=== PATIENT | female | born 1960 | race Caucasian/White ===

== ENCOUNTER 2018-05-03 16:04 | Inpatient (IN) | payer MEDICARE, OTHER ==
[2018-05-03] MEDS ORDERED: ALBUTEROL NEBULIZED 7.5 MG, IPRATROPIUM NEBULIZED 0.5 MG, SODIUM CHLORIDE 0.9% NEBULIZ ... INHALATION ONE ×3 (16:59)
[2018-05-03] MEDS ORDERED: ALBUTEROL NEBULIZED 2.5 MG/3 ML INHALATION STA (17:05)
[2018-05-03] MEDS ORDERED: IPRATROPIUM 0.5 MG/2.5 ML NEBU INHALATION STA (17:06)
[2018-05-03] MEDS ORDERED: LORazepam 2 MG/ML INJ IV STA (17:47)
[2018-05-03] MEDS ORDERED: IPRATROPIUM-ALBUTEROL 3 ML NEB INHALATION PRN (17:55)
--- NOTE | 2018-05-03 17:55 | ED ---
General Adult HPI - General Chief complaint: Shortness of Breath Stated complaint: LEE ANN Time Seen by Provider: 05/03/18 16:10 Source: patient, EMS, RN notes reviewed Mode of arrival: EMS Limitations: no limitations - History of Present Illness Initial comments: This is a 58-year-old female who was sent in from [facility]. Patient came in for difficulty breathing she has had a trach for her previous exacerbations of COPD. Patient was found to have a possible pneumonia so they wanted the patient transferred to our facility. Patient states she still having difficulty breathing and only received one treatment of possible. Patient states that helped a little but not enough. Patient states she's had no recent fever chills or cough. Patient had a chest x-ray to the facility and blood work. Chest x-ray showed a possible pneumonia. Patient's blood work did not show a white count. - Related Data Home Medications Medication Instructions Recorded Confirmed Albuterol Nebulized [Ventolin 2.5 mg INHALATION Q6H 05/03/18 05/03/18 Nebulized] Albuterol Sulfate [Proair Hfa] 2 puff INHALATION Q4H PRN 05/03/18 05/03/18 Diltiazem HCl [Cartia Xt] 120 mg PO DAILY 05/03/18 05/03/18 Fluticasone/Vilanterol [Breo 1 puff INHALATION RT-DAILY 05/03/18 05/03/18 Ellipta 200-25 Mcg INH] Pravastatin Sodium [Pravachol] 20 mg PO HS 05/03/18 05/03/18 Tiotropium [place] [Spiriva] 1 cap INHALATION DAILY 05/03/18 05/03/18 Allergies Allergy/AdvReac Type Severity Reaction Status Date / Time ibuprofen [From Motrin] Allergy Unknown Verified 05/03/18 18:55 Childhood morphine Allergy Rash/Hives Verified 05/03/18 18:55 Penicillins Allergy Swelling Verified 05/03/18 18:55 Review of Systems ROS Statement: Those systems with pertinent positive or pertinent negative responses have been documented in the HPI. ROS Other: All systems not noted in ROS Statement are negative. Past Medical History Past Medical History: COPD, Fibromyalgia Additional Past Medical History / Comment(s): tachycardia. trach. osteoprosis History of Any Multi-Drug Resistant Organisms: MRSA Date of last positivie culture/infection: 2011 Past Surgical History: Section, Cholecystectomy, Tonsillectomy Additional Past Surgical History / Comment(s): tumor removed on spine eye surgery Past Psychological History: Anxiety Smoking Status: Former smoker Past Alcohol Use History: None Reported Past Drug Use History: None Reported General Exam - General Exam Comments Initial Comments: GENERAL: Patient is well-developed and well-nourished. Patient is nontoxic and well- hydrated and is in moderate distress. ENT: Neck is soft and supple. No significant lymphadenopathy is noted. Oropharynx is clear. Moist mucous membranes. Patient has a trach in place. EYES: The sclera were anicteric and conjunctiva were pink and moist. Extraocular movements were intact and pupils were equal round and reactive to light. Eyelids were unremarkable. PULMONARY: Patient has diminished breath sounds throughout. CARDIOVASCULAR: There is a regular rate and rhythm without any murmurs gallops or rubs. ABDOMEN: Soft and nontender with normal bowel sounds. No palpable organomegaly was noted. There is no palpable pulsatile mass. SKIN: Skin is clear with no lesions or rashes and otherwise unremarkable. NEUROLOGIC: Patient is alert and oriented x3. Cranial nerves II through XII are grossly intact. Motor and sensory are also intact. Normal speech, volume and content. Symmetrical smile. MUSCULOSKELETAL: Normal extremities with adequate strength and full range of motion. LYMPHATICS: No significant lymphadenopathy is noted PSYCHIATRIC: Normal psychiatric evaluation. N Limitations: no limitations Course Vital Signs 05/03/18 05/03/18 05/03/18 16:11 16:52 17:16 Temperature 98.6 F Pulse Rate 112 H 113 H Respiratory 22 20 Rate Blood Pressure 141/94 O2 Sat by Pulse 96 Oximetry 05/03/18 05/03/18 05/03/18 17:34 17:39 18:02 Temperature Pulse Rate 115 H 120 H 128 H Respiratory 20 Rate Blood Pressure 143/99 O2 Sat by Pulse 99 Oximetry 05/03/18 05/03/18 18:08 19:02 Temperature Pulse Rate 124 H 126 H Respiratory 22 20 Rate Blood Pressure 141/93 124/81 O2 Sat by Pulse 98 96 Oximetry Medical Decision Making - Medical Decision Making I reviewed the patient's paperwork from [facility] as well as chest x-ray results. I had the patient suctioned out without much success. I also gave the patient 3 continuous breathing treatments in the emergency department. I was told the patient had been given Solu-Medrol to the facility. I spoke with Dr. Otto he agreed to admit the patient admitted the patient for COPD exacerbation. Disposition Clinical Impression: Acute exacerbation of chronic obstructive airways disease Disposition: ADMITTED IP TO THIS HOSP Time of Disposition: 17:54
[2018-05-03] MEDS: methylPREDNISolone SOD SUCCI 125 MG/2 ML VIAL IV SCH ×2 (18:59→23:49)
[2018-05-03] MEDS: LORazepam 0.5 MG TAB PO PRN (23:19)
--- NOTE | 2018-05-03 23:20 | XR ---
EXAM: XR Chest, 1 View CLINICAL HISTORY: Pneumonia. TECHNIQUE: Frontal view of the chest. COMPARISON: None. FINDINGS: Lungs: Hyperinflated lungs with flattening of the diaphragms suggesting COPD. Question subtle airspace opacities within the lower lungs, right greater than left which may be inflammatory or infectious. Pleural space: Unremarkable. No pneumothorax. Heart: Unremarkable. No cardiomegaly. Mediastinum: Unremarkable. Bones/joints: Unremarkable. Tubes, lines and devices: Tracheostomy cannula within the thoracic inlet. IMPRESSION: 1. Hyperinflated lungs with flattening of the diaphragms suggesting COPD. 2. Question subtle airspace opacities within the lower lungs, right greater than left which may be inflammatory or infectious.
[2018-05-03] MEDS: HEPARIN SODIUM,PORCINE 5,000 UNIT/ML 1 ML VIAL SQ SCH (23:48)
[2018-05-03] MEDS: PRAVASTATIN SODIUM 20 MG TAB PO SCH (23:48)
[2018-05-03] MEDS: PANTOPRAZOLE 40 MG/10 ML VIAL IVP SCH (23:48)
--- NOTE | 2018-05-03 23:48 | HP ---
HISTORY AND PHYSICAL CHIEF COMPLAINTS: Shortness of breath and cough and sputum. HISTORY OF PRESENT ILLNESS: This 58-year-old woman with a past medical history of multiple medical problems including COPD, fibromyalgia, tachycardia, osteoporosis, history of MRSA, history of cholecystectomy being followed by a doctor at [facility]. The patient apparently was admitted to [facility] recently for COPD acute exacerbation. Otherwise, medical complications. The patient had tracheostomy and PEG tube. PEG tube was recently removed, but however the patient presented to [facility] with increased shortness of breath, cough and sputum. Right lower lobe pneumonia was suspected and the patient was subsequently transferred to [facility] Emergency Room and the patient admitted for further evaluation and treatment. There is no history of any rigors. No history of headache, loss of consciousness, chest pain, palpitations at this time. Patient complains of severe anxiety. PAST MEDICAL HISTORY: History of COPD, fibromyalgia, tachycardia, osteoporosis, history of MRSA, Caesarean infection, cholecystectomy. MEDICATIONS: Prior to admission include: 1. Spiriva 1 puff daily. 2. Pravachol 20 mg daily. 3. Breo Ellipta 200/25 1 puff daily. 4. ProAir 2 puffs q.4h p.r.n. 5. Cardia XT 120 mg p.o. daily. 6. Ventolin 2.5 q.6h. ALLERGIES: IBUPROFEN, MORPHINE and PENICILLIN. FAMILY HISTORY: No history of heart disease or strokes in the family. SOCIAL HISTORY: Previous history of smoking. No history of current smoking, alcohol intake. REVIEW OF SYSTEMS: ENT: Tracheostomy. Cardio system: No angina or palpitations. RESPIRATORY: As mentioned earlier. GI mentioned earlier. no dysuria. Central nervous system: No numbness, weakness. ALLERGIES/IMMUNOLOGY: No asthma or hay fever. Musculoskeletal as mentioned earlier. Hematology/Oncology: No history of anemia. Endocrine: No history of diabetes or hypothyroidism. Constitutional: As mentioned earlier. Dermatology: Negative. Rheumatology: Negative. Psychiatry: As mentioned earlier. PHYSICAL EXAMINATION: Alert and oriented x3. Pulse is 104. Blood pressure 140/77, respiration 20, temperature 97.9, pulse ox 96% on 10 L. HEENT is conjunctivae normal. Neck is tracheostomy. Cardiovascular system: S1, S2 tachycardic. No S3. Respiration: Breathing efforts are markedly increased. Expiratory wheezing also present. Axillary muscles special acting. Bilateral scattered rhonchi and crackles. ABDOMEN: Soft, status post PEG tube removal. Nontender. No mass palpable. No guarding. No rigidity. Legs: No edema. No swelling. CENTRAL NERVOUS SYSTEM: Higher functions as mentioned earlier. Moves all 4 limbs. No focal motor or sensory deficits. Lymphatics: No lymph nodes palpable in the neck, axillae or groin. Skin: No ulcers, rashes or bleeding. Joints: No active arthropathy. LABS: Not available. ASSESSMENT: 1. Chronic obstructive pulmonary disease exacerbation with possible right lower lobe pneumonia possibly gram-negative, possibly aspiration with acute hypoxic respiratory failure. 2. Status post recent tracheostomy and PEG tube. 3. Status post PEG tube removal. 4. Chronic hypoxic respiratory failure secondary to chronic obstructive pulmonary disease, hypoxic hypercarbic respiratory failure. 5. History of nicotine dependence. 6. Fibromyalgia. 7. Sinus tachycardia. 8. Anxiety. 9. Osteoporosis. 10.History of MRSA. 11.History of cholecystectomy. RECOMMENDATIONS AND DISCUSSION: In this 58-year-old woman who presented with multiple complex medical issues, we will monitor the patient closely, continue the current medications, management and will initiate broad-spectrum IV antibiotics and I would also recommend bronchodilators, steroids and pulmonary consultation with Dr. Sherman. Otherwise, resume the home medications. DVT prophylaxis. Prognosis guarded because of multiple complex medical issues. Further recommendations to follow. See orders for details. Discussed with staff. PALMA / VEEN: [id number] /
[2018-05-03] MEDS: LEVOFLOXACIN 500MG-D5W PMX 500 MG in DEXTROSE/WATER 1 100ML.BAG IVPB SCH (23:49)
[2018-05-04] MEDS: FORMOTEROL FUMARATE 20 MCG/2 ML NEBU INHALATION SCH ×3 (00:09→19:35)
[2018-05-04] MEDS: IPRATROPIUM-ALBUTEROL 3 ML NEB INHALATION SCH ×5 (00:09→19:21)
[2018-05-04] MEDS: ACETAMINOPHEN TAB 500 MG TAB PO PRN ×2 (04:48→11:05)
[2018-05-04] MEDS: methylPREDNISolone SOD SUCCI 125 MG/2 ML VIAL IV SCH ×4 (04:52→23:00)
[2018-05-04 05:24] LABS: Appearance,Urine Clear (Clear); Bilirubin,Urine Negative (Negative); Blood,Urine Negative (Negative); Color,Urine Dark Yellow; Glucose,Urine (UA) 1+ (Negative); Leukocyte Esterase,Urine Negative (Negative); Nitrite,Urine Negative (Negative); Protein,Urine Negative (Negative); Specific Gravity,Urine 1.008 (1.001-1.035); Urobilinogen,Urine <2.0 mg/dL (<2.0)
[2018-05-04 07:32] LABS: Basophils % (A) 0 %; Eosinophils % (A) 1 %; HGB 12.7 gm/dL (11.4-16.0); Lymphocytes # (A) 0.4 k/uL (1.0-4.8); Lymphocytes % (A) 6 %; MCH 29.7 pg (25.0-35.0); MCHC 32.7 g/dL (31.0-37.0); MCV 90.8 fL (80.0-100.0); Mean Platelet Volume 5.9; Monocytes # (A) 0.1 k/uL (0-1.0); Monocytes % (A) 2 %; Neutrophils # (A) 5.8 k/uL (1.3-7.7); Neutrophils % (A) 92 %; Platelet Count 467 k/uL (150-450); RDW 14.8 % (11.5-15.5); WBC 6.3 k/uL (3.8-10.6)
[2018-05-04 07:55] LABS: Anion Gap 9 mmol/L; Blood Urea Nitrogen 8 mg/dL (7-17); Calcium 9.5 mg/dL (8.4-10.2); Carbon Dioxide 33 mmol/L (22-30); Chloride 98 mmol/L (98-107); Glucose 97 mg/dL (74-99); Magnesium 1.4 mg/dL (1.6-2.3); Potassium 3.9 mmol/L (3.5-5.1); Sodium 140 mmol/L (137-145)
[2018-05-04] MEDS: BUDESONIDE 1 MG/2 ML NEBU INHALATION SCH ×2 (08:08→19:20)
[2018-05-04] MEDS: HEPARIN SODIUM,PORCINE 5,000 UNIT/ML 1 ML VIAL SQ SCH ×2 (08:20→20:38)
[2018-05-04] MEDS: LORazepam 0.5 MG TAB PO PRN (08:21)
[2018-05-04] MEDS: DILTIAZEM CD 120 MG CAP.ER.24H PO SCH (08:21)
[2018-05-04 09:10] LABS: Ketones,Urine 3+ (Negative)
[2018-05-04 11:43] LABS: Glucose,Whole Blood 114 mg/dL (75-99)
[2018-05-04] MEDS: traMADol 50 MG TAB PO PRN ×2 (12:58→20:36)
[2018-05-04] MEDS: ALPRAZolam 0.25 MG TAB PO PRN (14:52)
[2018-05-04] MEDS ORDERED: Magnesium Replacement Protocol 1 EACH MISC MISCELLANE PRN (16:50)
[2018-05-04 17:04] LABS: Glucose,Whole Blood 151 mg/dL (75-99)
[2018-05-04] MEDS: HYDROcodone/APAP 5-325MG 1 EACH TAB PO PRN ×2 (17:26→22:59)
[2018-05-04] MEDS: PRAVASTATIN SODIUM 20 MG TAB PO SCH (20:37)
[2018-05-04] MEDS: PANTOPRAZOLE 40 MG/10 ML VIAL IVP SCH (20:38)
[2018-05-04] MEDS: LEVOFLOXACIN 500MG-D5W PMX 500 MG in DEXTROSE/WATER 1 100ML.BAG IVPB SCH (20:38)
--- NOTE | 2018-05-04 20:54 | PN ---
PROGRESS NOTE DATE OF SERVICE: 05/04/2018 This 58-year-old woman who was admitted with severe shortness of breath and cough also complaining of pain also. The patient apparently had a recent complicated hospital stay in [facility]. Patient being followed by primary care physician in the [facility] area. The chest x-ray which was done which was reviewed personally by me showed increased markings in the lower lobe, possibly indicating pneumonic processes. The patient was started on broad-spectrum IV antibiotics. No chest pain. No palpitations. PAST MEDICAL HISTORY: Reviewed. REVIEW OF SYSTEMS: CARDIOVASCULAR: No angina or palpitations. RESPIRATIONS: As mentioned earlier. GI as mentioned earlier. : No dysuria. Central nervous system: No numbness or weakness. CURRENT MEDICATIONS ARE: Reviewed and include: 1. Tylenol 500 q.6h p.r.n. 2. DuoNeb q.i.d. and p.r.n. 3. Xanax 0.5 t.i.d. 4. Pulmicort 1 mg b.i.d. 5. Cardizem CD 120 mg daily. 6. Perforomist 20 mg b.i.d. 7. Heparin 5000 subcu. 8. Levaquin 500 mg. 9. Solu-Medrol 60 IV q.6 hours. 10.Protonix. 12.Ultram. PHYSICAL EXAM: Patient is alert, oriented x3. Pulse is 108. Blood pressure 130/80. Respiration 18, temperature 98 degrees, pulse ox 97 percent on trach collar. HEENT: Conjunctivae normal. NECK: Tracheostomy. CARDIOVASCULAR : S1, S2. Tachycardia. Respirations: Breath sounds diminished in the bases. Scattered rhonchi and crackles. ABDOMEN: Soft, nontender. Legs: PEG tube in place. Minimal leaking apparently. Nervous system: Otherwise, nontender. No mass palpable. Legs: No edema. No swelling. NERVOUS SYSTEM: Higher functions as mentioned earlier. Moves all 4 limbs. Mild diffuse weakness. Lymphatics: No lymph nodes palpable in the neck, axillae or groin. Skin: No ulcer, no rash. No bleeding. LAB STUDIES: WBC 6.2, hemoglobin 12.7, magnesium 1.4. ASSESSMENT: 1. Chronic obstructive pulmonary disease exacerbation with possible right lower lobe pneumonia possibly gram-negative, possible aspiration with acute hypoxic respiratory failure. 2. History of recent tracheostomy and PEG tube. 3. Status post PEG tube removal. 4. History of chronic hypoxic respiratory failure secondary to chronic obstructive pulmonary disease, hypoxic hypercarbic respiratory failure. 5. History of nicotine dependence. 6. History of fibromyalgia. 7. History of sinus tachycardia. 8. History of anxiety. 9. Osteoporosis. 10.History of MRSA. 11.History of cholecystectomy. 12.Hypomagnesemia. RECOMMENDATIONS AND DISCUSSION: In this 58-year-old I would repeat magnesium and we will follow the protocol and further recommendations to follow. Continue antibiotics. Pulmonary consultation. MMODL / IJN: [id number] / MTDD
[2018-05-04 21:29] LABS: Glucose,Whole Blood 220 mg/dL (75-99)
--- NOTE | 2018-05-04 21:31 | CONS ---
CONSULTATION This is a pulmonary consultation. DATE OF SERVICE: May 04, 2018 This is a 58-year-old female that we see in consultation for shortness of breath. This is the patient was apparently transferred from [facility]. The patient apparently has been seeing a website programmer at [facility] by name is Dr. Adan Gibson. The patient apparently has had multiple episodes of respiratory failure and apparently in January of 2018, underwent a tracheostomy. The patient currently was seen in the emergency room on the after being transferred from [facility] because of increasing shortness of breath. The patient's chest x-ray showed changes of COPD without any naya infiltrates. The patient apparently was short of breath in the emergency room. She did receive a breathing treatment. Today, she is feeling a bit better. She is able to mouth words. She has HIV tracheostomy tube in place. She denies any fever or chills. She apparently is coughing up some phlegm. The patient is not able to give much of a history because of her speaking limitation. HOME MEDICATIONS: Include Ventolin, albuterol updrafts, ProAir inhaler, cardia XT, Breo, pravastatin and Spiriva. ALLERGIES: IBUPROFEN, MORPHINE, AND PENICILLIN. PAST MEDICAL HISTORY: Positive for COPD, which is quite severe and fibromyalgia. She apparently has had multiple episodes of respiratory failure requiring intubation and mechanical ventilation and in January 2018, apparently required a tracheostomy tube. She has also history of osteoporosis and a previous history of MRSA infection. SURGICAL HISTORY: Includes a , cholecystectomy, tonsillectomy, tracheostomy and tumor removal from the spine. SOCIAL HISTORY: Positive for previous tobacco use. She denies any alcohol or illicit drug use. FAMILY HISTORY: Neurology. OCCUPATIONAL HISTORY: Noncontributory. REVIEW OF SYSTEMS: Hard to obtain because of the patient's tracheostomy and she can only mouth words. She apparently previously was able to use a [place] valve, but apparently does not currently use one. Anyway, the patient's major complaints including primarily shortness of breath. The rest of the review of systems appears to be unremarkable. Current vital signs are reviewed. Temperature 98.1. Heart rate 100. Respiratory rate 18, blood pressure 139/88, mean 105 and saturations on trach collar 96%. Appears in no acute distress. Mildly tachypneic and dyspneic. No audible wheezing. HEENT examination is grossly unremarkable. NECK: Supple. Full range of motion. There is a midline tracheostomy. Cardiovascular examination reveals regular rhythm and rate. She is mildly tachycardic. It is regular. S1, S2 normal. Lungs reveal expiratory wheezes and rhonchi. Breath sounds are diminished. There is prolongation. ABDOMEN: Soft. Bowel sounds are heard. Extremities are intact. There is no cyanosis, clubbing, or edema. Skin without rash. X-RAY: Chest x-ray was done on the . It shows flat diaphragms and hyperinflated lung aviles. There may be some atelectasis at the lung bases, but I do not really see any naya infiltrates. LABORATORY DATA: Reviewed. White count 6.3, hemoglobin 12.7, hematocrit 39.0, platelet count 467,000. Sodium 140, potassium 3.9, chloride 98, CO2 33, anion gap is 9. BUN and creatinine were 8 and 0.35. Glucose 114, magnesium 1.4, calcium is normal. Urine is essentially negative. MEDICATIONS: Medications are reviewed. From the pulmonary standpoint, she is on Pulmicort and formoterol twice a day. She is also getting albuterol and Atrovent updrafts q.i.d. and p.r.n. The patient is also on Solu-Medrol 60 mg q.6 hours and is also on Levaquin IV. ASSESSMENT: 1. Chronic obstructive pulmonary disease exacerbation, possibly complicated by purulent tracheobronchitis, without naya pneumonia. 2. History of long-standing and severe chronic obstructive pulmonary disease with multiple episodes of respiratory failure. 3. Status post tracheostomy for respiratory failure in January 2018. 4. Previous history of heavy tobacco use. 5. History of chronic hypoxemic respiratory failure. 6. History of fibromyalgia. 7. History of osteoporosis. 8. History of previous methicillin-resistant Staphylococcus aureus infection. PLAN: The patient's medications are reviewed. The patient is on short-acting beta agonist, short-acting muscarinic antagonist, long-acting beta agonist, inhaled corticosteroids, systemic corticosteroids and antibiotics. Additional recommendations and suggestions are forthcoming. Eventually once the patient is improved, we should try to have her use a [place] valve so she could speak. Additional recommendations and suggestions are forthcoming. I think in the future, she will be coming up to this area for her pulmonary care. We will continue to follow closely. Prognosis is guarded. A copy of today's note will go to her primary care physician. MMODL / IJN: [id number] /
[2018-05-05 02:04] LABS: Hemoglobin A1C 5.2 % (4.0-6.0)
[2018-05-05] MEDS: ALPRAZolam 0.25 MG TAB PO PRN (05:15)
[2018-05-05 05:21] LABS: Glucose,Whole Blood 156 mg/dL (75-99)
[2018-05-05] MEDS: HYDROcodone/APAP 5-325MG 1 EACH TAB PO PRN (05:34)
[2018-05-05 06:02] LABS: Basophils # (A) 0.2 k/uL (0-0.2); Basophils % (A) 1 %; Eosinophils # (A) 0.3 k/uL (0-0.7); Eosinophils % (A) 1 %; HCT 42.7 % (34.0-46.0); HGB 13.3 gm/dL (11.4-16.0); Hypochromasia Slight; Lymphocytes # (A) 2.6 k/uL (1.0-4.8); Lymphocytes % (A) 7 %; MCH 29.3 pg (25.0-35.0); MCHC 31.1 g/dL (31.0-37.0); Mean Platelet Volume 5.9; Monocytes # (A) 0.9 k/uL (0-1.0); Monocytes % (A) 3 %; Neutrophils # (A) 30.5 k/uL (1.3-7.7); Neutrophils % (A) 88 %; Platelet Count 742 k/uL (150-450); RBC 4.54 m/uL (3.80-5.40); RDW 14.9 % (11.5-15.5); WBC 34.6 k/uL (3.8-10.6)
[2018-05-05 06:03] LABS: ABG Base Excess 4.9 mmol/L; ABG HCO3 34 mmol/L (21-25); ABG Oxygen Saturation 99.5 % (94-97); ABG PO2 288 mmHg (83-108); ABG TCO2 37 mmol/L (19-24)
[2018-05-05 06:12] LABS: Anion Gap 10 mmol/L; Blood Urea Nitrogen 17 mg/dL (7-17); Calcium 9.5 mg/dL (8.4-10.2); Carbon Dioxide 30 mmol/L (22-30); Chloride 100 mmol/L (98-107); Glucose 199 mg/dL (74-99); Magnesium 1.6 mg/dL (1.6-2.3); Potassium 4.4 mmol/L (3.5-5.1); Sodium 140 mmol/L (137-145)
[2018-05-05] MEDS: PROPOFOL 1,000 MG in EMPTY BAG 1 BAG IV SCH ×2 (06:23→18:21)
--- NOTE | 2018-05-05 06:40 | XR ---
EXAM: XR Chest, 1 View CLINICAL HISTORY: ITS.REASON XR Reason: SOB TECHNIQUE: Frontal view of the chest. COMPARISON: 05/03/18 chest x-ray IMPRESSION: Unchanged heart size. Improved aeration of the lower lungs bilaterally. Possible trace bilateral pleural effusions. Hyperinflated lungs. Tracheostomy tube is in place.
[2018-05-05 06:41] LABS: ABG PCO2 100 mmHg (35-45); ABG PH 7.14 (7.35-7.45)
[2018-05-05] MEDS ORDERED: NALOXONE 0.4 MG/ML 1 ML VIAL IV PRN (07:08)
[2018-05-05 07:59] LABS: Glucose,Whole Blood 161 mg/dL (75-99)
[2018-05-05] MEDS ORDERED: IPRATROPIUM-ALBUTEROL 3 ML NEB INHALATION SCH (08:00)
[2018-05-05 08:09] LABS: ABG Base Excess 10.3 mmol/L; ABG HCO3 35 mmol/L (21-25); ABG Oxygen Saturation 99.6 % (94-97); ABG PCO2 53 mmHg (35-45); ABG PH 7.43 (7.35-7.45); ABG PO2 183 mmHg (83-108); ABG TCO2 36 mmol/L (19-24)
[2018-05-05] MEDS: methylPREDNISolone SOD SUCCI 125 MG/2 ML VIAL IV SCH ×3 (08:10→18:21)
[2018-05-05] MEDS: INSULIN ASPART (NovoLOG) 100 UNIT/ML VIAL SQ SCH ×3 (08:10→18:11)
[2018-05-05] MEDS: IPRATROPIUM-ALBUTEROL 3 ML NEB INHALATION SCH ×5 (08:29→23:44)
[2018-05-05] MEDS: FORMOTEROL FUMARATE 20 MCG/2 ML NEBU INHALATION SCH ×2 (08:33→19:50)
[2018-05-05] MEDS: BUDESONIDE 1 MG/2 ML NEBU INHALATION SCH ×2 (08:33→19:50)
[2018-05-05] MEDS: HEPARIN SODIUM,PORCINE 5,000 UNIT/ML 1 ML VIAL SQ SCH ×2 (09:26→20:31)
[2018-05-05] MEDS: CHLORHEXIDINE GLUCONATE 15 ML CUP MUCOUS MEM SCH ×2 (09:26→20:31)
[2018-05-05 09:36] LABS: Appearance,Urine Cloudy (Clear); Bacteria,Urine Rare /hpf; Bilirubin,Urine Negative (Negative); Blood,Urine Negative (Negative); Color,Urine Dark Yellow; Glucose,Urine (UA) Negative (Negative); Hyaline Casts,Urine 22 /lpf (0-2); Ketones,Urine 1+ (Negative); Leukocyte Esterase,Urine Negative (Negative); Mucus,Urine Many /hpf; Nitrite,Urine Negative (Negative); Protein,Urine 2+ (Negative); RBC,Urine 1 /hpf (0-5); Specific Gravity,Urine 1.024 (1.001-1.035); Squamous Epithelial Cell,Urine 3 /hpf (0-4); Urobilinogen,Urine <2.0 mg/dL (<2.0)
[2018-05-05] MEDS: DILTIAZEM CD 120 MG CAP.ER.24H PO SCH (10:40)
[2018-05-05] MEDS: SODIUM CHLORIDE 0.9% 1,000 ML IV SCH (10:50)
[2018-05-05] MEDS ORDERED: Magnesium Replacement Protocol 1 EACH MISC MISCELLANE PRN (10:59)
[2018-05-05] MEDS: LORazepam 2 MG/ML INJ IV PRN ×2 (11:04→20:30)
[2018-05-05] MEDS: MAGNESIUM SULFATE-D5W PMX 1 GM in DEXTROSE/WATER 1 100ML.BAG IVPB SCH ×2 (11:34→12:53)
[2018-05-05 11:54] LABS: Glucose,Whole Blood 130 mg/dL (75-99)
--- NOTE | 2018-05-05 14:55 | P.PN ---
Subjective Progress Note Date: 05/05/18 Principal diagnosis: Acute on chronic hypercapnic respiratory failure secondary to acute exacerbation of COPD complicated by purulent tracheobronchitis This is a 50-year-old white female patient that we saw in consultation yesterday. Patient was admitted to the hospital on O2 2018 for complaints of shortness of breath. Patient does have a chronic tracheostomy in place for multiple episodes of respiratory failure, this was done in January 2018 at [facility]. Patient lives in [place], and she was taken to the [facility] by EMS on O2 2018. She denied any recent fever , chills or cough. Chest x-ray at the [facility] showed the possibility of pneumonia. Chest x-ray was completed at this facility on 2018 and showed hyperinflated lungs with flattening of diaphragms suggesting COPD questionable subtle airspace opacities within the lower lungs. White blood cell count was 6.3, hemoglobin is 12.7, electrolytes were unremarkable, with the exception of CO2 which was elevated 33 suggesting chronic hypercapnic respiratory failure, B1 was a creatinine 0.35, urinalysis was negative for infection, influenza screen was negative. Patient was on trach collar, however last night patient started experiencing worsening shortness of breath, currently her inner cannula came out of the tracheostomy, and patient was severely hypoxemic, with O2 sat of around 48%. She was brought to the intensive care unit, in view of severe respiratory distress, and abnormal blood gases laced on the ventilator support. Initial blood gas this morning showed pO2 of 288, pCO2 of 100, and pH of 7.14, this was done and FiO2 100%. Patient was placed on mom assist-control mode of ventilation with a rate of 30, tidal vital 325, FiO2 50% and PEEP of 5. This morning were seeing the patient in the intensive care unit, she remains on assist control mode of ventilation, she is calm and comfortable, she is awake, in no acute distress, lung sounds are quite diminished, no significant rhonchi or wheezes. His chest x-ray has been reviewed with Dr. Gil, and showed trace bilateral pleural effusions, hyperinflated lungs. Vital signs are stable, with the exception of mild tachycardia, with a rate between 108-120 BPM, blood pressure is 80-100 systolic , and the diastolic blood pressure between 60-80 BPM. Patient is slightly oliguric, with a urine output between 5-15 mL. IV fluids were increased to 0.9 normal saline at a rate of 75 ML per hour, Diprivan and is currently at 50 mics per kilo per minute. Today's blood work shows some white blood cell count increased to 34.6, electrolytes were within normal limits, B1 of 17 and creatinine was 0.46. Urinalysis was negative for infection. Patient is on IV steroids, empiric antiemetics in the form of Levaquin, and nebulized bronchodilators. Objective - Vital Signs Vital signs: Vital Signs Temp 98.6 F 05/05/18 12:00 Pulse 108 H 05/05/18 14:00 Resp 30 H 05/05/18 14:00 BP 90/64 05/05/18 14:00 Pulse Ox 98 05/05/18 14:00 Intake & Output 05/04/18 05/05/18 05/05/18 18:59 06:59 18:59 Intake Total 600 100.172 448.747 Output Total 75 Balance 600 100.172 373.747 Weight 51.256 kg 49 kg Intake: IV 425 Magnesium Sulfate-D5w Pmx 200 1 gm In Dextrose/Water 1 100ml.bag @ 100 mls/hr IVPB Q1H WIN[facility]RED Rx#: [id number] Sodium Chloride 0.9% 1, 225 000 ml @ 75 mls/hr IV . [id number] WINIFRED Rx#:[id number] Intake, IV Titration 100.172 23.747 Amount Levofloxacin 500Mg-D5w 100 Pmx 500 mg In Dextrose/ Water 1 100ml.bag @ 100 mls/hr IVPB DAILY@2100 WINIFRED Rx#:[id number] Propofol 1,000 mg In 0.172 23.747 Empty Bag 1 bag @ Titrate IV .Q0M WINIFRED Rx#: [id number] Oral 600 Output: Urine 75 Other: Voiding Method Bedpan Bedpan Indwelling Catheter # Voids 1 1 # Bowel Movements 0 1 - Exam GENERAL EXAM: Alert, pleasant, 50-year-old white female, to the vent, currently on assist-control mode of ventilation comfortable in no apparent distress. HEAD: Normocephalic/atraumatic. EYES: Normal reaction of pupils, equal size. Conjunctiva pink, sclera white. NOSE: Clear with pink turbinates. THROAT: No erythema or exudates. NECK: No masses, no JVD, no thyroid enlargement, no adenopathy. CHEST: No chest wall deformity. Symmetrical expansion. LUNGS: Equal air entry with diminished breath sounds bilaterally CVS: Regular rate and rhythm, normal S1 and S2, no gallops, no murmurs, no rubs ABDOMEN: Soft, nontender. No hepatosplenomegaly, normal bowel sounds, no guarding or rigidity. EXTREMITIES: No clubbing, no edema, no cyanosis, 2+ pulses and upper and lower extremities. MUSCULOSKELETAL: Muscle strength and tone normal. SPINE: No scoliosis or deformity SKIN: No rashes CENTRAL NERVOUS SYSTEM: Alert and oriented -3. No focal deficits, tone is normal in all 4 extremities. PSYCHIATRIC: Alert and oriented -3. Appropriate affect. Intact judgment and insight. - Labs CBC & Chem 7: 05/05/18 05:47 05/05/18 05:47 Labs: Abnormal Lab Results - Last 24 Hours (Table) 05/04/18 05/04/18 05/05/18 Range/Units 17:01 21:29 05:20 WBC (3.8-10.6) k/uL Plt Count (150-450) k/uL Neutrophils # (1.3-7.7) k/uL ABG pH (7.35-7.45) ABG pCO2 (35-45) mmHg ABG pO2 (83-108) mmHg ABG HCO3 (21-25) mmol/L ABG Total CO2 (19-24) mmol/L ABG O2 Saturation (94-97) % Creatinine (0.52-1.04) mg/dL Glucose (74-99) mg/dL POC Glucose (mg/dL) 151 H 220 H 156 H (75-99) mg/dL Phosphorus (2.5-4.5) mg/dL Urine Appearance (Clear) Urine Protein (Negative) Urine Ketones (Negative) Urine Bacteria (None) /hpf Hyaline Casts (0-2) /lpf Urine Mucus (None) /hpf 05/05/18 05/05/18 05/05/18 Range/Units 05:47 05:47 05:55 WBC 34.6 H (3.8-10.6) k/uL Plt Count 742 H (150-450) k/uL Neutrophils # 30.5 H (1.3-7.7) k/uL ABG pH 7.14 L* (7.35-7.45) ABG pCO2 100 H* (35-45) mmHg ABG pO2 288 H (83-108) mmHg ABG HCO3 34 H (21-25) mmol/L ABG Total CO2 37 H (19-24) mmol/L ABG O2 Saturation 99.5 H (94-97) % Creatinine 0.46 L (0.52-1.04) mg/dL Glucose 199 H (74-99) mg/dL POC Glucose (mg/dL) (75-99) mg/dL Phosphorus (2.5-4.5) mg/dL Urine Appearance (Clear) Urine Protein (Negative) Urine Ketones (Negative) Urine Bacteria (None) /hpf Hyaline Casts (0-2) /lpf Urine Mucus (None) /hpf 05/05/18 05/05/18 05/05/18 Range/Units 06:50 07:57 08:07 WBC (3.8-10.6) k/uL Plt Count (150-450) k/uL Neutrophils # (1.3-7.7) k/uL ABG pH (7.35-7.45) ABG pCO2 53 H (35-45) mmHg ABG pO2 183 H (83-108) mmHg ABG HCO3 35 H (21-25) mmol/L ABG Total CO2 36 H (19-24) mmol/L ABG O2 Saturation 99.6 H (94-97) % Creatinine (0.52-1.04) mg/dL Glucose (74-99) mg/dL POC Glucose (mg/dL) 161 H (75-99) mg/dL Phosphorus 4.6 H (2.5-4.5) mg/dL Urine Appearance (Clear) Urine Protein (Negative) Urine Ketones (Negative) Urine Bacteria (None) /hpf Hyaline Casts (0-2) /lpf Urine Mucus (None) /hpf 05/05/18 05/05/18 Range/Units 09:00 11:50 WBC (3.8-10.6) k/uL Plt Count (150-450) k/uL Neutrophils # (1.3-7.7) k/uL ABG pH (7.35-7.45) ABG pCO2 (35-45) mmHg ABG pO2 (83-108) mmHg ABG HCO3 (21-25) mmol/L ABG Total CO2 (19-24) mmol/L ABG O2 Saturation (94-97) % Creatinine (0.52-1.04) mg/dL Glucose (74-99) mg/dL POC Glucose (mg/dL) 130 H (75-99) mg/dL Phosphorus (2.5-4.5) mg/dL Urine Appearance Cloudy H (Clear) Urine Protein 2+ H (Negative) Urine Ketones 1+ H (Negative) Urine Bacteria Rare H (None) /hpf Hyaline Casts 22 H (0-2) /lpf Urine Mucus Many H (None) /hpf Microbiology - Last 24 Hours (Table) 05/04/18 05:01 Urine Culture - Final Urine,Voided 05/05/18 07:18 Sputum Culture - Preliminary Sputum 05/04/18 00:14 Blood Culture - Preliminary Blood No Growth after 24 hours 05/04/18 05:15 Gram Stain - Preliminary Sputum Sputum Culture - Preliminary Assessment and Plan Plan: Assessment: #1. Acute on chronic hypercapnic respiratory failure late to acute exacerbation of chronic obstructive pulmonary disease, x-ray did not show any clear evidence of pneumonia. Patient required to be placed on mechanical ventilatory, which she remains today #2. Chronic hypercapnic and hypoxemic respiratory failure requiring placement of tracheostomy with a PEG tube, and PEG tube was removed #3. History of nicotine dependence, in remission #4. History of fibromyalgia #5. Anxiety #6. Osteoporosis Plan: We will continue with assist control mode of ventilation, light sedation, patient not have a PEG tube anymore, and her oral meds are on hold, will add Ativan on an as-needed basis for anxiety, will discontinue Xanax. Hemodynamically patient is stable. In no acute distress, with increased her IV fluids 2.9 normal saline at a rate of 75 ML per hour, her oliguria is slightly improving, renal profile is within normal limits, electrolytes are within normal limits, there has been no elevation in the patient's white blood cell count, patient is afebrile, influenza screen is negative. Urine and blood and sputum cultures are negative thus far. Continue with empiric antibiotics, nebulized bronchodilators, and IV steroids, may give the patient a sedation holiday, and obtaining a sitter weaning parameters later today. Based on that we may make a decision about leaving the patient on pressure support trials. I performed a history & physical examination of the patient and discussed their management with my nurse practitioner, Juliette Garcia. I reviewed the nurse practitioner's note and agree with the documented findings and plan of care. Lung sounds are positive for diminished breath sounds. The findings and the impression was discussed with the patient. I attest to the documentation by the nurse practitioner. Time with Patient: Less than 30
[2018-05-05] MEDS: HYDROmorphone 0.5 MG/0.5 ML SYRINGE IVP PRN ×2 (15:09→20:30)
[2018-05-05 18:08] LABS: Glucose,Whole Blood 123 mg/dL (75-99)
[2018-05-05] MEDS: PANTOPRAZOLE 40 MG/10 ML VIAL IVP SCH (20:31)
[2018-05-05] MEDS: PRAVASTATIN SODIUM 20 MG TAB PO SCH (20:32)
[2018-05-05] MEDS: LEVOFLOXACIN 500MG-D5W PMX 500 MG in DEXTROSE/WATER 1 100ML.BAG IVPB SCH (21:09)
--- NOTE | 2018-05-05 22:50 | PN ---
PROGRESS NOTE DATE OF SERVICE: 05/05/2018 This 58-year-old woman was admitted with COPD acute exacerbation, had a displaced yesterday. The patient with acute respiratory failure. Patient mechanically ventilated and sedated at this time. The patient on broad-spectrum IV antibiotics also. The blood pressure is maintained. Patient is currently on assist- control 40% FiO2, saturating well at this time. Patient being closely monitored in ICU. PAST MEDICAL HISTORY: Reviewed. REVIEW OF SYSTEMS: Could not be taken. The patient mechanically ventilated and sedated. CURRENT MEDICATIONS: 1. Tylenol 500 mg q.6h p.r.n. 2. [place] 5 mg q.6h. 3. DuoNeb q.i.d. and p.r.n. 4. Peridex 15 mL b.i.d. 5. Cardizem CD 120 mg p.o. daily. 6. Perforomist 20 mEq p.o. b.i.d. 7. Heparin 5000 subcu b.i.d. 8. Dilaudid 0.5 q.8h p.r.n. 9. Levaquin 500 mg daily. 10.Sodium 160 IV q.6h. 11.Narcan. 12.Protonix. 13.Prevacid. 14.Ultram. PHYSICAL EXAM: Patient is alert, oriented x3. The pulse is 112, blood pressure is 90/60 respiration 30. Temperature is normal. Pulse ox 98% on mechanical ventilation. HEENT: Conjunctivae normal. Oral mucosa moist. NECK: Tracheostomy. CARDIOVASCULAR SYSTEM: S1, S2 muffled. RESPIRATORY SYSTEM: Breath sounds diminished at the bases. Bilateral scattered rhonchi and crackles. ABDOMEN: Soft, nontender. No mass palpable. LEGS: No edema. No swelling. CENTRAL NERVOUS SYSTEM: Diffusely weak. LAB STUDIES: WBC 34.6 and platelets 742. ASSESSMENT: 1. Chronic obstructive pulmonary disease exacerbation with acute right lower lobe pneumonia possibly gram-negative, possibly aspiration with acute hypoxic respiratory failure on mechanical ventilation. 2. History of recent tracheostomy and PEG tube. 3. Status post PEG tube removal. 4. History of chronic obstructive pulmonary disease with chronic hypoxic hypercarbic respiratory failure. 5. History of nicotine dependence. 6. History of fibromyalgia. 7. History of sinus tachycardia. 8. History of anxiety. 9. History of osteoporosis. 10.History of MRSA. 11.History of cholecystectomy. 12.History of hypomagnesemia. RECOMMENDATIONS AND DISCUSSION: Recommend to continue current medication, continue to monitor. Symptomatic treatment. Otherwise, at this time, I would recommend continue with bronchodilators. Continue antibiotics. Continue with IV steroids. Monitor blood sugars closely. DVT prophylaxis. Proton pump inhibitors. Closely follow with Pulmonary. Prognosis guarded. We will await the cultures. Further recommendation to follow. MMODL / IJN: [id number] / MTDD
[2018-05-06] MEDS: INSULIN ASPART (NovoLOG) 100 UNIT/ML VIAL SQ SCH ×4 (00:11→18:10)
[2018-05-06] MEDS: SODIUM CHLORIDE 0.9% 1,000 ML IV SCH ×2 (00:12→13:55)
[2018-05-06] MEDS: methylPREDNISolone SOD SUCCI 125 MG/2 ML VIAL IV SCH ×4 (00:12→18:22)
[2018-05-06 00:21] LABS: Glucose,Whole Blood 131 mg/dL (75-99)
[2018-05-06] MEDS: PROPOFOL 1,000 MG in EMPTY BAG 1 BAG IV SCH (02:31)
[2018-05-06] MEDS: IPRATROPIUM-ALBUTEROL 3 ML NEB INHALATION SCH ×6 (03:03→23:25)
[2018-05-06 04:02] LABS: ABG Base Excess 7.6 mmol/L; ABG HCO3 30 mmol/L (21-25); ABG Oxygen Saturation 99.5 % (94-97); ABG PCO2 36 mmHg (35-45); ABG PH 7.53 (7.35-7.45); ABG PO2 151 mmHg (83-108); ABG TCO2 32 mmol/L (19-24)
[2018-05-06 05:33] LABS: Basophils % (A) 0 %; Eosinophils # (A) 0.2 k/uL (0-0.7); Eosinophils % (A) 1 %; HCT 32.1 % (34.0-46.0); HGB 10.6 gm/dL (11.4-16.0); Lymphocytes # (A) 0.2 k/uL (1.0-4.8); Lymphocytes % (A) 2 %; MCHC 32.9 g/dL (31.0-37.0); MCV 91.1 fL (80.0-100.0); Mean Platelet Volume 6.2; Monocytes # (A) 0.3 k/uL (0-1.0); Monocytes % (A) 2 %; Neutrophils # (A) 12.8 k/uL (1.3-7.7); Neutrophils % (A) 95 %; Platelet Count 376 k/uL (150-450); RBC 3.53 m/uL (3.80-5.40); WBC 13.5 k/uL (3.8-10.6)
[2018-05-06 05:47] LABS: Anion Gap 5 mmol/L; Blood Urea Nitrogen 20 mg/dL (7-17); Calcium 9.2 mg/dL (8.4-10.2); Carbon Dioxide 30 mmol/L (22-30); Chloride 104 mmol/L (98-107); Glucose 112 mg/dL (74-99); Phosphorus 2.1 mg/dL (2.5-4.5); Potassium 3.6 mmol/L (3.5-5.1); Sodium 139 mmol/L (137-145)
[2018-05-06 06:07] LABS: Glucose,Whole Blood 131 mg/dL (75-99)
[2018-05-06] MEDS ORDERED: Phosphorus Replacement Protoco 1 EACH MISC MISCELLANE PRN (06:27)
[2018-05-06] MEDS ORDERED: Potassium Replacement Protocol 1 EACH MISC MISCELLANE PRN (06:27)
[2018-05-06] MEDS: HYDROmorphone 0.5 MG/0.5 ML SYRINGE IVP PRN ×3 (06:40→20:51)
[2018-05-06] MEDS: POTASSIUM CHLORIDE 10 MEQ in WATER FOR INJECTION 1 100ML.BAG IVPB SCH ×2 (06:45→12:03)
[2018-05-06] MEDS ORDERED: POTASSIUM PHOSPHATE 10 MMOL in SODIUM CHLORIDE 0.9% 250 ML IV ONE (07:00)
[2018-05-06] MEDS: FORMOTEROL FUMARATE 20 MCG/2 ML NEBU INHALATION SCH ×2 (07:25→19:57)
[2018-05-06] MEDS: BUDESONIDE 1 MG/2 ML NEBU INHALATION SCH ×2 (07:25→18:46)
--- NOTE | 2018-05-06 08:34 | XR ---
EXAMINATION TYPE: XR chest 1V portable DATE OF EXAM: 05/06/2018 COMPARISON: 05/05/2018 HISTORY: Shortness of breath TECHNIQUE: Single frontal view of the chest is obtained. FINDINGS: Hyperinflation. Tracheostomy tube noted. Atherosclerotic change aorta. No sizable pneumoth orax. Blunting of the costophrenic angles may be related to hyperexpansion rather than pleural effusi on or thickening. Correlate for pulmonary arterial hypertension. Subsegmental changes at the left gonzalez g base. IMPRESSION: COPD with stable basilar atelectasis or resolving infiltrate.
--- NOTE | 2018-05-06 08:36 | CDI ---
Documentation Clarification Form Date: 05/06/2018 8:14:04 AM From: Concepcion Quevedo RN CCDS Admit Date: 05/03/2018 5:55:00 PM Patient Name: Latricia Taylor Visit Number: [id number] Discharge Date: ATTENTION: The Clinical Documentation Specialists (CDI) and [facility] Coding Staff appreciate your assistance in clarifying documentation. Please respond to the clarification below the line at the bottom and electronically sign. The CDI & [facility] Coding staff will review the response and follow-up if needed. Please note: Queries are made part of the Legal Health Record. If you have any questions, please contact the author of this message via ITS. Dr. Izzy Otto Possibly Gram Negative Pneumonia, Possibly Aspiration Pneumonia is documented in your note on 05/05/2018 History/Risk Factors: 58 yr old female presents to the ED with COPD exacerbation. Clinical Indicators: Medical Hx COPD with chronic hypoxic hypercarbic respiratory failure. Peg Tube and Tracheotomy. Vital signs: 140/77 104 97.9 96% WBC 6.3 on admission, 05/05/2018 Wbc 34.6 X-ray: 05/05/2018 Improved aeration of the lower lungs bilaterally. Possible trace Jimbo Pleural effusions. Hyperinflated lungs. Lung/Breathing assessment Respiration breathing efforts are markedly increased. Expiratory wheezing also present Treatment: Levaquin ivpb; Mechanical Ventilation; Solumedrol ; Magnesium, Perforomist; Pulmonary Consult In order to capture the severity of condition, please clarify if the Pneumonia you are treating for: Aspiration Pneumonia, identify if: * Due to solids or liquids Bacterial Pneumonia, specify causal organism (if known) * Gram Negative Pneumonia * Other bacteria (please specify) * Other, please specify * Unable to determine * Pneumonia Ruled Out (Last Revision: June 2017) Bacterial Pneumonia, * Gram Negative Pneumonia MTDD
[2018-05-06] MEDS: HEPARIN SODIUM,PORCINE 5,000 UNIT/ML 1 ML VIAL SQ SCH ×2 (08:41→20:52)
[2018-05-06] MEDS: CHLORHEXIDINE GLUCONATE 15 ML CUP MUCOUS MEM SCH ×2 (08:41→20:51)
[2018-05-06] MEDS: LORazepam 2 MG/ML INJ IV PRN ×2 (09:02→14:59)
[2018-05-06] MEDS: DILTIAZEM CD 120 MG CAP.ER.24H PO SCH (11:30)
[2018-05-06 11:51] LABS: Glucose,Whole Blood 104 mg/dL (75-99)
--- NOTE | 2018-05-06 15:52 | P.PN ---
Subjective Progress Note Date: 05/06/18 This is a 50-year-old white female patient that we saw in consultation yesterday. Patient was admitted to the hospital on O2 2018 for complaints of shortness of breath. Patient does have a chronic tracheostomy in place for multiple episodes of respiratory failure, this was done in January 2018 at [facility]. Patient lives in [place], and she was taken to the [facility] by EMS on O2 2018. She denied any recent fever , chills or cough. Chest x-ray at the [facility] showed the possibility of pneumonia. Chest x-ray was completed at this facility on 2018 and showed hyperinflated lungs with flattening of diaphragms suggesting COPD questionable subtle airspace opacities within the lower lungs. White blood cell count was 6.3, hemoglobin is 12.7, electrolytes were unremarkable, with the exception of CO2 which was elevated 33 suggesting chronic hypercapnic respiratory failure, B1 was a creatinine 0.35, urinalysis was negative for infection, influenza screen was negative. Patient was on trach collar, however last night patient started experiencing worsening shortness of breath, currently her inner cannula came out of the tracheostomy, and patient was severely hypoxemic, with O2 sat of around 48%. She was brought to the intensive care unit, in view of severe respiratory distress, and abnormal blood gases laced on the ventilator support. Initial blood gas this morning showed pO2 of 288, pCO2 of 100, and pH of 7.14, this was done and FiO2 100%. Patient was placed on mom assist-control mode of ventilation with a rate of 30, tidal vital 325, FiO2 50% and PEEP of 5. This morning were seeing the patient in the intensive care unit, she remains on assist control mode of ventilation, she is calm and comfortable, she is awake, in no acute distress, lung sounds are quite diminished, no significant rhonchi or wheezes. His chest x-ray has been reviewed with Dr. Gil, and showed trace bilateral pleural effusions, hyperinflated lungs. Vital signs are stable, with the exception of mild tachycardia, with a rate between 108-120 BPM, blood pressure is 80-100 systolic , and the diastolic blood pressure between 60-80 BPM. Patient is slightly oliguric, with a urine output between 5-15 mL. IV fluids were increased to 0.9 normal saline at a rate of 75 ML per hour, Diprivan and is currently at 50 mics per kilo per minute. Today's blood work shows some white blood cell count increased to 34.6, electrolytes were within normal limits, B1 of 17 and creatinine was 0.46. Urinalysis was negative for infection. Patient is on IV steroids, empiric antiemetics in the form of Levaquin, and nebulized bronchodilators. On today's evaluation of 05/06/2018, I'm seeing this patient for a follow-up. She is awake and she's off Diprivan this morning. She is receiving Ativan for anxiety pH remains on a mechanical ventilator. Her blood gases earlier this morning showed a component of respiratory alkalosis with a pH of 7.53 with a pCO2 of 36 and pO2 of 151. His was done by the patient's respiratory rate was at 30 with tidal volume of 3 on 25 and FiO2 of 40% and PEEP of 5. Based on this , I dropped a respiratory rate down to 20. She is doing well. She is awake and alert. She was given a short trial of pressure support mode of ventilation with a pressure support of 5 and PEEP of 5 and she was able to tolerate it for a total of 30 minutes. The tracheostomy tube catheter that she has does not have any parts available in our institution. I talked with respiratory and we are thinking of replacing it with a conventional Shiley tracheostomy tube with a later stage. The patient is still nothing by mouth. She does not have any tach 2. I've decided to proceed with a Dobbhoff tube insertion for enteral feeding and nutritional support. This will be also needed for medication. The patient is still having some sinus tachycardia. Her heart rate is ranging between 110 and 130 and is sinus. She is on IV fluids. She is receiving 0.9 normal saline at the rate of 75 mL an hour. She has an adequate urine output. She is afebrile. Her chest x-ray showing hyperinflation without evidence of any acute pneumonia or pulmonary infiltrates. She is quite anxious. She is able to communicate easily. The blood work is been all negative and within normal limits. Potassium is to be replaced. Phosphorus is to be replaced. Influenza screen was negative. Note that her COPD is advanced and the patient has had previous bouts of prolonged ventilator Failure requiring a long-term tracheostomy tube insertion. Objective - Vital Signs Vital signs: Vital Signs Temp 98.4 F 05/06/18 12:00 Pulse 108 H 05/06/18 15:00 Resp 21 05/06/18 15:00 BP 121/79 05/06/18 15:00 Pulse Ox 98 05/06/18 15:00 Intake & Output 05/05/18 05/06/18 05/06/18 18:59 06:59 18:59 Intake Total 354.153 2535.015 1052.169 Output Total 195 315 360 Balance 574.563 821.015 692.169 Weight 55.4 kg Intake: IV 725 900 925 Magnesium Sulfate-D5w Pmx 200 1 gm In Dextrose/Water 1 100ml.bag @ 100 mls/hr IVPB Q1H [facility] Rx#: [id number] Potassium Phosphate 10 250 mmol In Sodium Chloride 0 .9% 250 ml @ 125 mls/hr IV ONCE ONE Rx#:[id number] Sodium Chloride 0.9% 1, 525 900 675 000 ml @ 75 mls/hr IV . [id number] [facility] Rx#:[id number] Intake, IV Titration 44.563 236.015 127.169 Amount Levofloxacin 500Mg-D5w 100 Pmx 500 mg In Dextrose/ Water 1 100ml.bag @ 100 mls/hr IVPB DAILY@2100 [facility] Rx#:[id number] Potassium Chloride 10 meq 100 100 In Water For Injection 1 100ml.bag @ 100 mls/hr IVPB Q1H [facility] Rx#: [id number] Propofol 1,000 mg In 44.563 36.015 27.169 Empty Bag 1 bag @ Titrate IV .Q0M [facility] Rx#: [id number] Output: Urine 195 315 360 Other: Voiding Method Indwelling Catheter Indwelling Catheter Indwelling Catheter # Voids 1 # Bowel Movements 1 - Exam GENERAL EXAM: Alert, pleasant, 50-year-old white female, to the vent, currently on assist-control mode of ventilation comfortable in no apparent distress. HEAD: Normocephalic/atraumatic. EYES: Normal reaction of pupils, equal size. Conjunctiva pink, sclera white. NOSE: Clear with pink turbinates. THROAT: No erythema or exudates. NECK: No masses, no JVD, no thyroid enlargement, no adenopathy. CHEST: No chest wall deformity. Symmetrical expansion. LUNGS: Equal air entry with diminished breath sounds bilaterally CVS: Regular rate and rhythm, normal S1 and S2, no gallops, no murmurs, no rubs ABDOMEN: Soft, nontender. No hepatosplenomegaly, normal bowel sounds, no guarding or rigidity. EXTREMITIES: No clubbing, no edema, no cyanosis, 2+ pulses and upper and lower extremities. MUSCULOSKELETAL: Muscle strength and tone normal. SPINE: No scoliosis or deformity SKIN: No rashes CENTRAL NERVOUS SYSTEM: Alert and oriented -3. No focal deficits, tone is normal in all 4 extremities. PSYCHIATRIC: Alert and oriented -3. Appropriate affect. Intact judgment and insight. - Labs CBC & Chem 7: 05/06/18 05:16 05/06/18 05:16 Labs: Abnormal Lab Results - Last 24 Hours (Table) 05/05/18 05/05/18 05/06/18 Range/Units 18:05 23:55 03:57 WBC (3.8-10.6) k/uL RBC (3.80-5.40) m/uL Hgb (11.4-16.0) gm/dL Hct (34.0-46.0) % Neutrophils # (1.3-7.7) k/uL Lymphocytes # (1.0-4.8) k/uL ABG pH 7.53 H (7.35-7.45) ABG pO2 151 H (83-108) mmHg ABG HCO3 30 H (21-25) mmol/L ABG Total CO2 32 H (19-24) mmol/L ABG O2 Saturation 99.5 H (94-97) % BUN (7-17) mg/dL Creatinine (0.52-1.04) mg/dL Glucose (74-99) mg/dL POC Glucose (mg/dL) 123 H 131 H (75-99) mg/dL Phosphorus (2.5-4.5) mg/dL 05/06/18 05/06/18 05/06/18 Range/Units 05:16 05:16 05:52 WBC 13.5 H (3.8-10.6) k/uL RBC 3.53 L (3.80-5.40) m/uL Hgb 10.6 L (11.4-16.0) gm/dL Hct 32.1 L (34.0-46.0) % Neutrophils # 12.8 H (1.3-7.7) k/uL Lymphocytes # 0.2 L (1.0-4.8) k/uL ABG pH (7.35-7.45) ABG pO2 (83-108) mmHg ABG HCO3 (21-25) mmol/L ABG Total CO2 (19-24) mmol/L ABG O2 Saturation (94-97) % BUN 20 H (7-17) mg/dL Creatinine 0.45 L (0.52-1.04) mg/dL Glucose 112 H (74-99) mg/dL POC Glucose (mg/dL) 131 H (75-99) mg/dL Phosphorus 2.1 L (2.5-4.5) mg/dL 05/06/18 Range/Units 11:46 WBC (3.8-10.6) k/uL RBC (3.80-5.40) m/uL Hgb (11.4-16.0) gm/dL Hct (34.0-46.0) % Neutrophils # (1.3-7.7) k/uL Lymphocytes # (1.0-4.8) k/uL ABG pH (7.35-7.45) ABG pO2 (83-108) mmHg ABG HCO3 (21-25) mmol/L ABG Total CO2 (19-24) mmol/L ABG O2 Saturation (94-97) % BUN (7-17) mg/dL Creatinine (0.52-1.04) mg/dL Glucose (74-99) mg/dL POC Glucose (mg/dL) 104 H (75-99) mg/dL Phosphorus (2.5-4.5) mg/dL Microbiology - Last 24 Hours (Table) 05/04/18 05:15 Gram Stain - Final Sputum Sputum Culture - Final 05/04/18 00:14 Blood Culture - Preliminary Blood No Growth after 48 hours 05/05/18 07:18 Gram Stain - Preliminary Sputum Sputum Culture - Preliminary 05/04/18 05:01 Urine Culture - Final Urine,Voided Assessment and Plan Plan: Assessment 1 acute on chronic hypercapnic respiratory failure secondary to COPD exacerbation. The patient's COPD is very severe and her overall pulmonary status has been very borderline starting with. She has had previous bouts of prolonged ventilator dependent respiratory failure requiring prolonged mechanical ventilation intubation and permanent tracheostomy placement. Currently, airway pressures remains elevated. The morning blood gases showed a component of respiratory alkalosis. Necessity vent changes were done. Chest x- ray still showing hyperinflation. There is no evidence of any pneumonia. She remains bronchospastic and wheezy. Unable to tolerate any form of spontaneous breathing trials yet. She remains nothing by mouth. 2 chronic hypercapnic and hypoxic respiratory failure due to advanced COPD 3 history of permanent tracheostomy tube placement 4 fibromyalgia 5 chronic anxiety 6 chronic osteoporosis 7 previous history of smoking 8 electrode imbalance with hypokalemia and hypophosphatemia 9 sinus tachycardia Plan Continue the bronchodilators. Continue systemic steroids. Continue Levaquin as an empiric antibiotic coverage. We'll check daily weaning parameters and assess the patient's readiness to wean. Also, will need a Dobbhoff for feeding purposes and will also need to restart on Cardizem orally to control her sinus tachycardia. I would suggest starting the Cardizem as well as the Dobbhoff catheterization. Meanwhile, continue the rest of the supportive care. Avoid propofol. He was given as needed for anxiety. This may ultimately be a prolonged wean. We'll continue to follow make further recommendations based on her progress. I intend also to switch her tracheostomy at a later stage conventional Shiley tracheostomy tube. Critically care evaluation, done more than 30 minutes. Time with Patient: Greater than 30
--- NOTE | 2018-05-06 18:21 | PN ---
PROGRESS NOTE DATE OF SERVICE: 05/06/2018 This 58-year-old woman who was admitted with COPD, acute exacerbation, has a displaced tracheal catheter and is on mechanical ventilation. CPAP trial was being continued. The patient has been on broad-spectrum IV antibiotics also. Cultures are negative so far. Past medical history reviewed. Review of systems could not be taken; patient is mechanically ventilated. CURRENT MEDICATIONS: Reviewed. They include: 1. Tylenol 500 mg q.6 p.r.n. 2. [place] 5 mg q.6 p.r.n. 3. DuoNeb q.i.d. and p.r.n. 4. Pulmicort 1 mg b.i.d. 5. Peridex 15 mL b.i.d. 6. Cardizem CD 120 mg daily. 7. Perforomist 20 mg b.i.d. 8. Heparin 5000 units subcutaneously b.i.d. 9. Dilaudid 0.5 mg q.8. 10.NovoLog. 11.Levaquin 500 mg daily. 12.Ativan. 13.Solu-Medrol 60 IV q.6. 14.Magnesium replacement protocol. 15.Narcan. 16.Pravachol. 17.Ultram. PHYSICAL EXAMINATION: Patient is alert but mechanically ventilated, nonverbal. Pulse is 117, tachycardic, sinus mechanism, blood pressure 119/81, respiration 22, temperature normal, pulse ox 96% on 40% FiO2. HEENT: Conjunctivae normal. Oral mucosa moist. NECK: No jugular venous distention. No carotid bruit. No lymph node enlargement. CARDIOVASCULAR SYSTEM: S1, S2 muffled. RESPIRATORY SYSTEM: Breath sounds diminished at the bases. No rhonchi. No crackles. ABDOMEN: Soft, non-tender. LEGS: No edema. No swelling. NERVOUS SYSTEM: No focal deficit. LABS: WBC 13.2, hemoglobin 10.6. ABG: pH of 7.53. Other labs are noted. ASSESSMENT: 1. Chronic obstructive pulmonary disease, acute exacerbation, with acute right lower lobe pneumonia, possibly gram-negative, with acute hypoxic respiratory failure, on mechanical ventilation. 2. History of recent tracheostomy and PEG tube. 3. Status post PEG tube removal. 4. History of chronic obstructive pulmonary disease with chronic hypoxic hypercarbic respiratory failure. 5. History of nicotine dependence. 6. History of fibromyalgia. 7. Sinus tachycardia. 8. History of anxiety. 9. History of osteoporosis. 10.History of methicillin-resistant Staphylococcus aeruginosa. 11.History of cholecystectomy. 12.History of hypomagnesemia. 13.FULL CODE. RECOMMENDATIONS AND DISCUSSION: In this 58-year-old woman who presented with multiple complex medical issues, we will monitor the patient closely, continue the current management, continue with symptomatic treatment. Otherwise at this time I recommend continuing with the broad-spectrum IV antibiotics. Continue the bronchodilators. Continue steroids. Monitor blood sugars closely. Weaning per Pulmonary. Otherwise, continue the rest of the medications. Prognosis guarded. The patient also is tachycardic and Dobhoff, and Cardizem p.o. may be tried. Further recommendations to follow. MMODL / IJN: [id number] /
[2018-05-06] MEDS: DILTIAZEM ORAL 30 MG TAB PO SCH ×2 (18:22→22:13)
[2018-05-06 18:36] LABS: Glucose,Whole Blood 101 mg/dL (75-99)
--- NOTE | 2018-05-06 18:36 | XR ---
EXAMINATION TYPE: XR chest 1V portable DATE OF EXAM: 05/06/2018 COMPARISON: NONE HISTORY: Check tube placement TECHNIQUE: Single frontal view of the chest is obtained. FINDINGS: There is tracheostomy tube noted. There is a NG tube with the tip in the gastric fundus. T here is no heart failure nor confluent pneumonic infiltrate. Thoracic aorta is atheromatous. I see no pleural effusion. IMPRESSION: Nasogastric tube has tip probably in the gastric fundus.
[2018-05-06] MEDS: PANTOPRAZOLE 40 MG/10 ML VIAL IVP SCH (20:52)
[2018-05-06] MEDS: LEVOFLOXACIN 500MG-D5W PMX 500 MG in DEXTROSE/WATER 1 100ML.BAG IVPB SCH (20:52)
[2018-05-06] MEDS: PRAVASTATIN SODIUM 20 MG TAB PO SCH (20:53)
[2018-05-06 23:57] LABS: Glucose,Whole Blood 119 mg/dL (75-99)
[2018-05-07] MEDS: INSULIN ASPART (NovoLOG) 100 UNIT/ML VIAL SQ SCH ×4 (00:32→17:53)
[2018-05-07] MEDS: methylPREDNISolone SOD SUCCI 125 MG/2 ML VIAL IV SCH ×4 (00:36→17:52)
[2018-05-07] MEDS: SODIUM CHLORIDE 0.9% 1,000 ML IV SCH ×2 (02:11→17:54)
[2018-05-07] MEDS: IPRATROPIUM-ALBUTEROL 3 ML NEB INHALATION SCH ×6 (03:27→23:39)
[2018-05-07 04:09] LABS: ABG Base Excess 5.2 mmol/L; ABG HCO3 30 mmol/L (21-25); ABG PCO2 51 mmHg (35-45); ABG PH 7.39 (7.35-7.45); ABG PO2 154 mmHg (83-108); ABG TCO2 32 mmol/L (19-24)
--- NOTE | 2018-05-07 04:15 | XR ---
EXAM: XR Chest, 1 View CLINICAL HISTORY: ITS.REASON XR Reason: Tube placement TECHNIQUE: Frontal view of the chest. COMPARISON: 05/06/18 FINDINGS: Tracheostomy and enteric tube again noted, unchanged in position allowing for differences in technique. Allowing for differences in technique, no significant interval change in appearance of the chest compared to yesterday's study. IMPRESSION: No significant interval change.
[2018-05-07 05:20] LABS: Glucose,Whole Blood 110 mg/dL (75-99)
[2018-05-07] MEDS: HYDROmorphone 0.5 MG/0.5 ML SYRINGE IVP PRN ×3 (05:25→20:37)
[2018-05-07 05:41] LABS: Basophils % (A) 0 %; Eosinophils # (A) 0.1 k/uL (0-0.7); Eosinophils % (A) 1 %; HCT 34.2 % (34.0-46.0); Lymphocytes # (A) 0.2 k/uL (1.0-4.8); Lymphocytes % (A) 2 %; MCH 29.9 pg (25.0-35.0); MCHC 32.2 g/dL (31.0-37.0); Mean Platelet Volume 5.9; Monocytes # (A) 0.4 k/uL (0-1.0); Monocytes % (A) 3 %; Neutrophils # (A) 11.5 k/uL (1.3-7.7); Neutrophils % (A) 94 %; Platelet Count 348 k/uL (150-450); RBC 3.67 m/uL (3.80-5.40); RDW 14.9 % (11.5-15.5); WBC 12.2 k/uL (3.8-10.6)
[2018-05-07 05:48] LABS: Anion Gap 6 mmol/L; Blood Urea Nitrogen 19 mg/dL (7-17); Calcium 9.1 mg/dL (8.4-10.2); Carbon Dioxide 27 mmol/L (22-30); Chloride 106 mmol/L (98-107); Glucose 109 mg/dL (74-99); Magnesium 1.8 mg/dL (1.6-2.3); Phosphorus 2.7 mg/dL (2.5-4.5); Potassium 4.3 mmol/L (3.5-5.1); Sodium 139 mmol/L (137-145)
[2018-05-07] MEDS: BUDESONIDE 1 MG/2 ML NEBU INHALATION SCH ×2 (07:32→19:33)
[2018-05-07] MEDS: FORMOTEROL FUMARATE 20 MCG/2 ML NEBU INHALATION SCH ×2 (07:32→19:33)
[2018-05-07] MEDS: MAGNESIUM SULFATE-D5W PMX 1 GM in DEXTROSE/WATER 1 100ML.BAG IVPB SCH ×2 (08:19→09:29)
[2018-05-07] MEDS: DILTIAZEM ORAL 30 MG TAB PO SCH ×4 (08:19→22:04)
[2018-05-07] MEDS: HEPARIN SODIUM,PORCINE 5,000 UNIT/ML 1 ML VIAL SQ SCH ×2 (08:19→20:44)
[2018-05-07] MEDS: CHLORHEXIDINE GLUCONATE 15 ML CUP MUCOUS MEM SCH ×2 (08:19→20:43)
[2018-05-07] MEDS: LORazepam 2 MG/ML INJ IV PRN (09:28)
[2018-05-07 13:00] LABS: Glucose,Whole Blood 122 mg/dL (75-99)
--- NOTE | 2018-05-07 14:29 | P.PN ---
Subjective Progress Note Date: 05/07/18 This is a 50-year-old white female patient that we saw in consultation yesterday. Patient was admitted to the hospital on O2 2018 for complaints of shortness of breath. Patient does have a chronic tracheostomy in place for multiple episodes of respiratory failure, this was done in January 2018 at [facility]. Patient lives in [place], and she was taken to the [facility] by EMS on O2 2018. She denied any recent fever , chills or cough. Chest x-ray at the [facility] showed the possibility of pneumonia. Chest x-ray was completed at this facility on 2018 and showed hyperinflated lungs with flattening of diaphragms suggesting COPD questionable subtle airspace opacities within the lower lungs. White blood cell count was 6.3, hemoglobin is 12.7, electrolytes were unremarkable, with the exception of CO2 which was elevated 33 suggesting chronic hypercapnic respiratory failure, B1 was a creatinine 0.35, urinalysis was negative for infection, influenza screen was negative. Patient was on trach collar, however last night patient started experiencing worsening shortness of breath, currently her inner cannula came out of the tracheostomy, and patient was severely hypoxemic, with O2 sat of around 48%. She was brought to the intensive care unit, in view of severe respiratory distress, and abnormal blood gases laced on the ventilator support. Initial blood gas this morning showed pO2 of 288, pCO2 of 100, and pH of 7.14, this was done and FiO2 100%. Patient was placed on mom assist-control mode of ventilation with a rate of 30, tidal vital 325, FiO2 50% and PEEP of 5. This morning were seeing the patient in the intensive care unit, she remains on assist control mode of ventilation, she is calm and comfortable, she is awake, in no acute distress, lung sounds are quite diminished, no significant rhonchi or wheezes. His chest x-ray has been reviewed with Dr. Gil, and showed trace bilateral pleural effusions, hyperinflated lungs. Vital signs are stable, with the exception of mild tachycardia, with a rate between 108-120 BPM, blood pressure is 80-100 systolic , and the diastolic blood pressure between 60-80 BPM. Patient is slightly oliguric, with a urine output between 5-15 mL. IV fluids were increased to 0.9 normal saline at a rate of 75 ML per hour, Diprivan and is currently at 50 mics per kilo per minute. Today's blood work shows some white blood cell count increased to 34.6, electrolytes were within normal limits, B1 of 17 and creatinine was 0.46. Urinalysis was negative for infection. Patient is on IV steroids, empiric antiemetics in the form of Levaquin, and nebulized bronchodilators. On today's evaluation of 05/06/2018, I'm seeing this patient for a follow-up. She is awake and she's off Diprivan this morning. She is receiving Ativan for anxiety pH remains on a mechanical ventilator. Her blood gases earlier this morning showed a component of respiratory alkalosis with a pH of 7.53 with a pCO2 of 36 and pO2 of 151. His was done by the patient's respiratory rate was at 30 with tidal volume of 3 on 25 and FiO2 of 40% and PEEP of 5. Based on this , I dropped a respiratory rate down to 20. She is doing well. She is awake and alert. She was given a short trial of pressure support mode of ventilation with a pressure support of 5 and PEEP of 5 and she was able to tolerate it for a total of 30 minutes. The tracheostomy tube catheter that she has does not have any parts available in our institution. I talked with respiratory and we are thinking of replacing it with a conventional Shiley tracheostomy tube with a later stage. The patient is still nothing by mouth. She does not have any tach 2. I've decided to proceed with a Dobbhoff tube insertion for enteral feeding and nutritional support. This will be also needed for medication. The patient is still having some sinus tachycardia. Her heart rate is ranging between 110 and 130 and is sinus. She is on IV fluids. She is receiving 0.9 normal saline at the rate of 75 mL an hour. She has an adequate urine output. She is afebrile. Her chest x-ray showing hyperinflation without evidence of any acute pneumonia or pulmonary infiltrates. She is quite anxious. She is able to communicate easily. The blood work is been all negative and within normal limits. Potassium is to be replaced. Phosphorus is to be replaced. Influenza screen was negative. Note that her COPD is advanced and the patient has had previous bouts of prolonged ventilator Failure requiring a long-term tracheostomy tube insertion. On today's evaluation of 05/07/2018 I'm seeing this patient for a follow-up. The patient is off Diprivan. The patient is awake and alert. She is less anxious compared to yesterday. Earlier this morning shows placed on a pressure support mode of ventilation. She was placed upper support of 5 and a PEEP of 5. Acid sequently put on a pressure support of 10 and eliminated the PEEP. She did well with this setting pulling tidal volumes above 300. Note that yesterday, I replaced this patient's tracheostomy tube. I put put in a #6 Shiley tracheostomy tube in nonfenestrated. I also inserted a Dobbhoff catheter in this patient. Both of this disease went fine without any major difficulties. The patient is currently receiving tube feeds in the form of vitamin 1.2 at the rate of 10 mL an hour and this will be gradually advanced to goal. She seems to be calm and comfortable. She seems to be doing well. She is awake. She is interactive. She denies having any pain. No synovitis or secretions. Chest x-ray shows COPD and hyperinflation and there are no other acute abnormalities noted. She remains on DuoNeb nebulized treatments around the clock, she remains on IV Solu-Medrol, once the Doppler was inserted, the patient was started on Cardizem 30 mg by mouth 4 times a day and her heart rate is under much better control. She remains in some mild Sinus tachycardia. She is on IV Protonix. She is doing also IV Levaquin. Objective - Vital Signs Vital signs: Vital Signs Temp 98.4 F 05/07/18 12:00 Pulse 92 05/07/18 14:00 Resp 20 05/07/18 14:00 BP 125/70 05/07/18 14:00 Pulse Ox 98 05/07/18 14:00 Intake & Output 05/06/18 05/07/18 05/07/18 18:59 06:59 18:59 Intake Total 7652.406 1819 925 Output Total 430 470 865 Balance 847.169 785 60 Weight 60.6 kg 60.6 kg Intake: IV 1150 975 725 Magnesium Sulfate-D5w Pmx 200 1 gm In Dextrose/Water 1 100ml.bag @ 100 mls/hr IVPB Q1H [facility] Rx#: [id number] Potassium Phosphate 10 250 mmol In Sodium Chloride 0 .9% 250 ml @ 125 mls/hr IV ONCE ONE Rx#:[id number] Sodium Chloride 0.9% 1, 900 975 525 000 ml @ 75 mls/hr IV . [id number] [facility] Rx#:[id number] Intake, IV Titration 127.169 100 Amount Levofloxacin 500Mg-D5w 100 Pmx 500 mg In Dextrose/ Water 1 100ml.bag @ 100 mls/hr IVPB DAILY@2100 [facility] Rx#:[id number] Potassium Chloride 10 meq 100 In Water For Injection 1 100ml.bag @ 100 mls/hr IVPB Q1H [facility] Rx#: [id number] Propofol 1,000 mg In 27.169 Empty Bag 1 bag @ Titrate IV .Q0M [facility] Rx#: [id number] Tube Feeding 120 140 Other 60 60 Output: Urine 430 470 865 Other: Voiding Method Indwelling Catheter Indwelling Catheter Indwelling Catheter # Voids 1 # Bowel Movements 1 - Exam GENERAL EXAM: Alert, pleasant, 50-year-old white female, to the vent, currently on assist-control mode of ventilation comfortable in no apparent distress. HEAD: Normocephalic/atraumatic. EYES: Normal reaction of pupils, equal size. Conjunctiva pink, sclera white. NOSE: Clear with pink turbinates. THROAT: No erythema or exudates. NECK: No masses, no JVD, no thyroid enlargement, no adenopathy. CHEST: No chest wall deformity. Symmetrical expansion. LUNGS: Equal air entry with diminished breath sounds bilaterally CVS: Regular rate and rhythm, normal S1 and S2, no gallops, no murmurs, no rubs ABDOMEN: Soft, nontender. No hepatosplenomegaly, normal bowel sounds, no guarding or rigidity. EXTREMITIES: No clubbing, no edema, no cyanosis, 2+ pulses and upper and lower extremities. MUSCULOSKELETAL: Muscle strength and tone normal. SPINE: No scoliosis or deformity SKIN: No rashes CENTRAL NERVOUS SYSTEM: Alert and oriented -3. No focal deficits, tone is normal in all 4 extremities. PSYCHIATRIC: Alert and oriented -3. Appropriate affect. Intact judgment and insight. - Labs CBC & Chem 7: 05/07/18 05:11 05/07/18 05:11 Labs: Abnormal Lab Results - Last 24 Hours (Table) 05/06/18 05/06/18 05/07/18 Range/Units 18:09 23:53 04:08 WBC (3.8-10.6) k/uL RBC (3.80-5.40) m/uL Hgb (11.4-16.0) gm/dL Neutrophils # (1.3-7.7) k/uL Lymphocytes # (1.0-4.8) k/uL ABG pCO2 51 H (35-45) mmHg ABG pO2 154 H (83-108) mmHg ABG HCO3 30 H (21-25) mmol/L ABG Total CO2 32 H (19-24) mmol/L ABG O2 Saturation 100.0 H (94-97) % BUN (7-17) mg/dL Creatinine (0.52-1.04) mg/dL Glucose (74-99) mg/dL POC Glucose (mg/dL) 101 H 119 H (75-99) mg/dL 05/07/18 05/07/18 05/07/18 Range/Units 05:11 05:11 05:17 WBC 12.2 H (3.8-10.6) k/uL RBC 3.67 L (3.80-5.40) m/uL Hgb 11.0 L (11.4-16.0) gm/dL Neutrophils # 11.5 H (1.3-7.7) k/uL Lymphocytes # 0.2 L (1.0-4.8) k/uL ABG pCO2 (35-45) mmHg ABG pO2 (83-108) mmHg ABG HCO3 (21-25) mmol/L ABG Total CO2 (19-24) mmol/L ABG O2 Saturation (94-97) % BUN 19 H (7-17) mg/dL Creatinine 0.34 L (0.52-1.04) mg/dL Glucose 109 H (74-99) mg/dL POC Glucose (mg/dL) 110 H (75-99) mg/dL 05/07/18 Range/Units 12:57 WBC (3.8-10.6) k/uL RBC (3.80-5.40) m/uL Hgb (11.4-16.0) gm/dL Neutrophils # (1.3-7.7) k/uL Lymphocytes # (1.0-4.8) k/uL ABG pCO2 (35-45) mmHg ABG pO2 (83-108) mmHg ABG HCO3 (21-25) mmol/L ABG Total CO2 (19-24) mmol/L ABG O2 Saturation (94-97) % BUN (7-17) mg/dL Creatinine (0.52-1.04) mg/dL Glucose (74-99) mg/dL POC Glucose (mg/dL) 122 H (75-99) mg/dL Microbiology - Last 24 Hours (Table) 05/05/18 07:18 Gram Stain - Final Sputum Sputum Culture - Final Diphtheroid species 05/04/18 00:14 Blood Culture - Preliminary Blood No Growth after 72 hours Assessment and Plan Plan: Assessment 1 acute on chronic hypercapnic respiratory failure secondary to COPD exacerbation. The patient has severe advanced COPD. She has a permanent tracheostomy tube in place. She is currently vent dependent. We replaced her tracheostomy tube yesterday. Also inserted a Dobbhoff for medication and feeding. She tolerated the procedures well. This morning she is on a pressure support mode of ventilation and she is currently on a pressure support of 10. She is doing well. We'll continue this point is breathing and assess this patient's overall pulmonary status over the next few hours. No other new findings. She is off sedation. She is less anxious. Her sinus tachycardia is also improved. She was started on enteral feeding for nutritional support. 2 chronic hypercapnic and hypoxic respiratory failure due to advanced COPD 3 history of permanent tracheostomy tube placement 4 fibromyalgia 5 chronic anxiety 6 chronic osteoporosis 7 previous history of smoking 8 electrode imbalance with hypokalemia and hypophosphatemia, replaced 9 sinus tachycardia Plan Continue DuoNeb nebulized treatments around the clock. Continue IV Solu Medrol. Continue Levaquin. Continue the Pulmicort and Perforomist nebulized treatments twice a day. Tracheostomy tube in place. Dobbhoff catheterization. Advance diet as tolerated and the patient is currently on vitamin 1.2 and she is at 10 mL an hour and this would be gradually advanced to goal. Continue oral Cardizem 30 mg 4 times a day. Continue daily trials of pressure support mode of ventilation and assess the patient's ability to perform spontaneous breathing. She seems to be able to handle few hours on a daily basis. Aggressive physical therapy. We'll continue to follow make further recommendations based on her progress. This may be a slow wean. May be a candidate for select specialty at a later stage. Her blood gases show an adequate acid-base status with a pH of 7.39 and a pCO2 of 51 based on the morning blood gases. No other significant events otherwise for now. Critically care evaluation, more than 30 minutes. Time with Patient: Greater than 30
[2018-05-07] MEDS: ALPRAZolam 0.25 MG TAB PO PRN (15:22)
--- NOTE | 2018-05-07 16:13 | PN ---
PROGRESS NOTE DATE OF SERVICE: 05/07/2018 This 58-year-old who woman was admitted with COPD, acute exacerbation, as well as acute hypoxic respiratory failure, is on mechanical ventilation. The most recent chest x-ray showed no significant changes, which was reviewed by me. Otherwise, Dr. Gil is following the patient closely. The patient is on weaning parameters. The patient is on p.o. Cardizem at this time. PT/OT has evaluated the patient closely. The patient could be a candidate for select specialty also, per Dr. Gil. Patient is being closely monitored. Cultures are showing diphtheroids in the sputum. Past medical history reviewed. Review of systems could not be taken; the patient is on mechanical ventilation. Current medications are reviewed and include: 1. Tylenol 500 q.6 p.r.n. 2. [place] 5 mg. 3. DuoNeb q.i.d. and p.r.n. 4. Xanax 0.25 t.i.d. 5. Pulmicort 1 mg b.i.d. 6. Peridex 15 mL b.i.d. 7. Cardizem CD 30 mg p.o. q.i.d. 8. Formoterol 20 mg p.o. b.i.d. 9. Heparin 5000 units subcutaneously b.i.d. 10.Dilaudid 0.5 q.8. 11.Levaquin 500 mg IV daily. 12.Solu-Medrol 60 IV q.6. 13.Replacement protocols. 14.Protonix. 15.Propofol. 16.Ultram. PHYSICAL EXAMINATION: Patient is conscious. Pulse is 120, regular. Blood pressure 166/104, respiration 30, temperature normal, pulse ox 93% on room air. HEENT: Conjunctivae normal. Oral mucosa moist. NECK: Tracheostomy. CARDIOVASCULAR SYSTEM: S1, S2 muffled. Tachycardic. No S3. No S4. RESPIRATORY SYSTEM: Breath sounds diminished at the bases. Bilateral scattered rhonchi and crackles. ABDOMEN: Soft, non-tender. LEGS: No edema. No swelling. NERVOUS SYSTEM: No focal deficit. LABS: WBC 12.2, hemoglobin 11, sodium 139, potassium 4.3. ASSESSMENT: 1. Chronic obstructive pulmonary disease, acute exacerbation, with acute right lower lobe pneumonia, possibly gram-negative, with acute hypoxic respiratory failure, on mechanical ventilation. 2. History of recent tracheostomy and PEG tube. 3. Status post PEG tube removal. 4. Tachycardia, sinus possibly. 5. History of chronic obstructive pulmonary disease with chronic hypoxic hypercarbic respiratory failure. 6. History of nicotine dependence. 7. History of fibromyalgia. 8. History of anxiety. 9. History of osteoporosis. 10.History of methicillin-resistant Staphylococcus aeruginosa. 11.History of cholecystectomy. 12.History of hypomagnesemia. 13.Diphtheroids from the sputum. 14.FULL CODE. RECOMMENDATIONS AND DISCUSSION: I recommend to continue current management, continue with symptomatic treatment. Continue with the bronchodilators. Continue with the steroids. Current with the antibiotics. I would also recommend a 2D echo with Doppler to complete the workup. I would also recommend diltiazem p.o. The patient was on 120 mg p.o. daily. Will continue to monitor. Closely follow with Dr. Gil. PT/OT evaluation. Possible ECF rehab versus select specialty referral, depending upon the patient's prognosis. Further recommendations to follow. Prognosis guarded. MMODL / IJN: [id number] /
[2018-05-07 18:02] LABS: Glucose,Whole Blood 136 mg/dL (75-99)
[2018-05-07] MEDS: PANTOPRAZOLE 40 MG/10 ML VIAL IVP SCH (20:42)
[2018-05-07] MEDS: LEVOFLOXACIN 500MG-D5W PMX 500 MG in DEXTROSE/WATER 1 100ML.BAG IVPB SCH (20:43)
[2018-05-07] MEDS: PRAVASTATIN SODIUM 20 MG TAB PO SCH (20:43)
[2018-05-07] MEDS: HYDROcodone/APAP 5-325MG 1 EACH TAB PO PRN (22:08)
[2018-05-08 00:04] LABS: Glucose,Whole Blood 152 mg/dL (75-99)
[2018-05-08] MEDS: INSULIN ASPART (NovoLOG) 100 UNIT/ML VIAL SQ SCH ×4 (00:36→17:41)
[2018-05-08] MEDS: methylPREDNISolone SOD SUCCI 125 MG/2 ML VIAL IV SCH ×4 (00:37→17:41)
[2018-05-08] MEDS: ALPRAZolam 0.25 MG TAB PO PRN ×2 (02:12→12:07)
[2018-05-08] MEDS: IPRATROPIUM-ALBUTEROL 3 ML NEB INHALATION SCH ×5 (03:33→19:22)
[2018-05-08 05:24] LABS: ABG Base Excess 13.4 mmol/L; ABG HCO3 37 mmol/L (21-25); ABG Oxygen Saturation 99.4 % (94-97); ABG PCO2 53 mmHg (35-45); ABG PH 7.46 (7.35-7.45); ABG PO2 126 mmHg (83-108); ABG TCO2 39 mmol/L (19-24)
[2018-05-08] MEDS: HYDROmorphone 0.5 MG/0.5 ML SYRINGE IVP PRN ×2 (05:29→20:56)
[2018-05-08 05:30] LABS: Basophils % (A) 0 %; Eosinophils # (A) 0.1 k/uL (0-0.7); Eosinophils % (A) 1 %; HCT 33.1 % (34.0-46.0); HGB 11.1 gm/dL (11.4-16.0); Lymphocytes # (A) 0.2 k/uL (1.0-4.8); Lymphocytes % (A) 3 %; MCH 30.2 pg (25.0-35.0); MCHC 33.4 g/dL (31.0-37.0); MCV 90.5 fL (80.0-100.0); Mean Platelet Volume 5.9; Monocytes # (A) 0.3 k/uL (0-1.0); Monocytes % (A) 3 %; Neutrophils % (A) 93 %; Platelet Count 387 k/uL (150-450); RBC 3.66 m/uL (3.80-5.40); RDW 14.9 % (11.5-15.5); WBC 8.6 k/uL (3.8-10.6)
[2018-05-08] MEDS: SODIUM CHLORIDE 0.9% 1,000 ML IV SCH ×2 (05:31→17:43)
[2018-05-08 05:35] LABS: Glucose,Whole Blood 146 mg/dL (75-99)
[2018-05-08 05:40] LABS: Anion Gap 5 mmol/L; Blood Urea Nitrogen 12 mg/dL (7-17); Calcium 8.8 mg/dL (8.4-10.2); Carbon Dioxide 34 mmol/L (22-30); Chloride 99 mmol/L (98-107); Glucose 125 mg/dL (74-99); Magnesium 1.7 mg/dL (1.6-2.3); Potassium 2.8 mmol/L (3.5-5.1); Sodium 138 mmol/L (137-145)
[2018-05-08] MEDS ORDERED: Phosphorus Replacement Protoco 1 EACH MISC MISCELLANE PRN (06:11)
[2018-05-08] MEDS ORDERED: Magnesium Replacement Protocol 1 EACH MISC MISCELLANE PRN (06:13)
[2018-05-08] MEDS ORDERED: Potassium Replacement Protocol 1 EACH MISC MISCELLANE PRN ×2 (06:15→23:36)
[2018-05-08] MEDS: POTASSIUM BICARBONATE/CIT AC 20 MEQ TABLET.EFF NG-TUBE SCH ×3 (06:39→08:45)
[2018-05-08] MEDS: MAGNESIUM SULFATE-D5W PMX 1 GM in DEXTROSE/WATER 1 100ML.BAG IVPB SCH ×2 (06:39→08:41)
[2018-05-08] MEDS: SODIUM PHOSPHATE 10 MMOL in SODIUM CHLORIDE 0.9% 250 ML IVPB SCH ×2 (06:59→08:41)
[2018-05-08] MEDS: FORMOTEROL FUMARATE 20 MCG/2 ML NEBU INHALATION SCH ×2 (07:49→19:22)
[2018-05-08] MEDS: BUDESONIDE 1 MG/2 ML NEBU INHALATION SCH ×2 (07:49→19:22)
--- NOTE | 2018-05-08 07:57 | XR ---
EXAMINATION TYPE: XR chest 1V portable DATE OF EXAM: 05/08/2018 COMPARISON: 05/07/2018 HISTORY: Tube placement TECHNIQUE: Single frontal view of the chest is obtained. FINDINGS: Tracheostomy tube stable with bilateral lower lobe infiltrate and pleural thickening or ti ny effusion. Diffuse emphysematous changes noted. Findings are stable. IMPRESSION: Diffuse COPD with bilateral infiltrate and pleural thickening or tiny effusion stable.
[2018-05-08] MEDS: CHLORHEXIDINE GLUCONATE 15 ML CUP MUCOUS MEM SCH ×2 (08:41→20:53)
[2018-05-08] MEDS: HEPARIN SODIUM,PORCINE 5,000 UNIT/ML 1 ML VIAL SQ SCH ×2 (08:41→20:54)
[2018-05-08] MEDS: DILTIAZEM ORAL 30 MG TAB PO SCH ×4 (08:41→21:04)
[2018-05-08] MEDS: traMADol 50 MG TAB PO PRN (08:42)
--- NOTE | 2018-05-08 09:42 | ECHOF ---
Referral Reason:tachycardia MEASUREMENTS -------- HEIGHT: 147.3 cm WEIGHT: 60.3 kg BP: 159/102 RVIDd: 3.0 cm (< 3.3) IVSd: 1.2 cm (0.6 - 1.1) LVIDd: 2.9 cm (3.9 - 5.3) LVPWd: 1.2 cm (0.6 - 1.1) IVSs: 1.4 cm LVIDs: 2.1 cm LVPWs: 1.4 cm LA Diam: 2.7 cm (2.7 - 3.8) Ao Diam: 2.8 cm (2.0 - 3.7) AV Cusp: 1.6 cm (1.5 - 2.6) LA Diam: 2.5 cm (2.7 - 3.8) MV E Raúl: 0.68 m/s MV DecT: 384 ms MV A Raúl: 0.96 m/s MV E/A Ratio: 0.71 RAP: 5.00 mmHg RVSP: 30.04 mmHg MV EF SLOPE: 139.50 mm/s (70 - 150) MV EXCURSION: 1.65 cm (> 18.000) FINDINGS -------- Resting tachycardia (HR>100bpm). This was a technically adequate study. The left ventricular size is normal. There is mild concentric left ventricular hypertrophy. Overa ll left ventricular systolic function is normal with, an EF between 55 - 60 %. The right ventricle is mildly enlarged. Normal LA size by volume 22+/-6 ml/m2. The right atrium is normal in size. Aortic valve is trileaflet and is mildly thickened. There is no evidence of aortic regurgitation. There is no evidence of aortic stenosis. The mitral valve leaflets are mildly thickened. There is trace to mild mitral regurgitation. Trace tricuspid regurgitation present. Right ventricular systolic pressure is normal at < 35 mmHg. There is no evidence of pulmonary hypertension. The pulmonic valve was not well visualized. The aortic root size is normal. Normal inferior vena cava with normal inspiratory collapse consistent with estimated right atrial pre ssure of 5 mmHg. Echo free space indicative of a pericardial fat pad. There is a small, generalized pericardial effu domo present. CONCLUSIONS -------- 1. Resting tachycardia (HR>100bpm). 2. This was a technically adequate study. 3. The left ventricular size is normal. 4. There is mild concentric left ventricular hypertrophy. 5. Overall left ventricular systolic function is normal with, an EF between 55 - 60 %. 6. The right ventricle is mildly enlarged. 7. Normal LA size by volume 22+/-6 ml/m2. 8. Aortic valve is trileaflet and is mildly thickened. 9. The mitral valve leaflets are mildly thickened. 10. There is trace to mild mitral regurgitation. 11. Trace tricuspid regurgitation present. 12. Right ventricular systolic pressure is normal at < 35 mmHg. 13. There is no evidence of pulmonary hypertension. 14. The pulmonic valve was not well visualized. 15. The aortic root size is normal. 16. There is a small, generalized pericardial effusion present. BRANCH MECHANIC: Corby Yeager RDCS
[2018-05-08 11:40] LABS: Glucose,Whole Blood 154 mg/dL (75-99)
--- NOTE | 2018-05-08 14:32 | P.PN ---
Subjective Progress Note Date: 05/08/18 This is a 50-year-old white female patient that we saw in consultation yesterday. Patient was admitted to the hospital on O2 2018 for complaints of shortness of breath. Patient does have a chronic tracheostomy in place for multiple episodes of respiratory failure, this was done in January 2018 at [facility]. Patient lives in [place], and she was taken to the [facility] by EMS on O2 2018. She denied any recent fever , chills or cough. Chest x-ray at the [facility] showed the possibility of pneumonia. Chest x-ray was completed at this facility on 2018 and showed hyperinflated lungs with flattening of diaphragms suggesting COPD questionable subtle airspace opacities within the lower lungs. White blood cell count was 6.3, hemoglobin is 12.7, electrolytes were unremarkable, with the exception of CO2 which was elevated 33 suggesting chronic hypercapnic respiratory failure, B1 was a creatinine 0.35, urinalysis was negative for infection, influenza screen was negative. Patient was on trach collar, however last night patient started experiencing worsening shortness of breath, currently her inner cannula came out of the tracheostomy, and patient was severely hypoxemic, with O2 sat of around 48%. She was brought to the intensive care unit, in view of severe respiratory distress, and abnormal blood gases laced on the ventilator support. Initial blood gas this morning showed pO2 of 288, pCO2 of 100, and pH of 7.14, this was done and FiO2 100%. Patient was placed on mom assist-control mode of ventilation with a rate of 30, tidal vital 325, FiO2 50% and PEEP of 5. This morning were seeing the patient in the intensive care unit, she remains on assist control mode of ventilation, she is calm and comfortable, she is awake, in no acute distress, lung sounds are quite diminished, no significant rhonchi or wheezes. His chest x-ray has been reviewed with Dr. Gil, and showed trace bilateral pleural effusions, hyperinflated lungs. Vital signs are stable, with the exception of mild tachycardia, with a rate between 108-120 BPM, blood pressure is 80-100 systolic , and the diastolic blood pressure between 60-80 BPM. Patient is slightly oliguric, with a urine output between 5-15 mL. IV fluids were increased to 0.9 normal saline at a rate of 75 ML per hour, Diprivan and is currently at 50 mics per kilo per minute. Today's blood work shows some white blood cell count increased to 34.6, electrolytes were within normal limits, B1 of 17 and creatinine was 0.46. Urinalysis was negative for infection. Patient is on IV steroids, empiric antiemetics in the form of Levaquin, and nebulized bronchodilators. On today's evaluation of 05/06/2018, I'm seeing this patient for a follow-up. She is awake and she's off Diprivan this morning. She is receiving Ativan for anxiety pH remains on a mechanical ventilator. Her blood gases earlier this morning showed a component of respiratory alkalosis with a pH of 7.53 with a pCO2 of 36 and pO2 of 151. His was done by the patient's respiratory rate was at 30 with tidal volume of 3 on 25 and FiO2 of 40% and PEEP of 5. Based on this , I dropped a respiratory rate down to 20. She is doing well. She is awake and alert. She was given a short trial of pressure support mode of ventilation with a pressure support of 5 and PEEP of 5 and she was able to tolerate it for a total of 30 minutes. The tracheostomy tube catheter that she has does not have any parts available in our institution. I talked with respiratory and we are thinking of replacing it with a conventional Shiley tracheostomy tube with a later stage. The patient is still nothing by mouth. She does not have any tach 2. I've decided to proceed with a Dobbhoff tube insertion for enteral feeding and nutritional support. This will be also needed for medication. The patient is still having some sinus tachycardia. Her heart rate is ranging between 110 and 130 and is sinus. She is on IV fluids. She is receiving 0.9 normal saline at the rate of 75 mL an hour. She has an adequate urine output. She is afebrile. Her chest x-ray showing hyperinflation without evidence of any acute pneumonia or pulmonary infiltrates. She is quite anxious. She is able to communicate easily. The blood work is been all negative and within normal limits. Potassium is to be replaced. Phosphorus is to be replaced. Influenza screen was negative. Note that her COPD is advanced and the patient has had previous bouts of prolonged ventilator Failure requiring a long-term tracheostomy tube insertion. On today's evaluation of 05/07/2018 I'm seeing this patient for a follow-up. The patient is off Diprivan. The patient is awake and alert. She is less anxious compared to yesterday. Earlier this morning shows placed on a pressure support mode of ventilation. She was placed upper support of 5 and a PEEP of 5. Acid sequently put on a pressure support of 10 and eliminated the PEEP. She did well with this setting pulling tidal volumes above 300. Note that yesterday, I replaced this patient's tracheostomy tube. I put put in a #6 Shiley tracheostomy tube in nonfenestrated. I also inserted a Dobbhoff catheter in this patient. Both of this disease went fine without any major difficulties. The patient is currently receiving tube feeds in the form of vitamin 1.2 at the rate of 10 mL an hour and this will be gradually advanced to goal. She seems to be calm and comfortable. She seems to be doing well. She is awake. She is interactive. She denies having any pain. No synovitis or secretions. Chest x-ray shows COPD and hyperinflation and there are no other acute abnormalities noted. She remains on DuoNeb nebulized treatments around the clock, she remains on IV Solu-Medrol, once the Doppler was inserted, the patient was started on Cardizem 30 mg by mouth 4 times a day and her heart rate is under much better control. She remains in some mild Sinus tachycardia. She is on IV Protonix. She is doing also IV Levaquin. On 05/08/2018, the patient is awake and alert. We have her in a sitting up position in the bed. I have been a pressure support mode of ventilation at the pressure of 10. Doing well. Very anxious. She is requiring the Xanax around the clock and the Xanax dose has to be increased to control her anxiety levels. She is tolerating her tube feeds via Dobbhoff. She has a #[address] tube [address]. She is tolerating her tube feeds. No nausea. No vomiting. No chest pain. She is awake and alert and interactive. Her sinus tachycardia is improved. She remains on examination bronchodilators and steroids. Overnight, the patient was placed on IVC plus mode with a tidal volume of 1025 and a PEEP of 5 with an FiO2 of 40% and a PEEP of 5 and a rate of 20. This is her baseline respiratory rate in the volume cycle. No other significant events overnight. Objective - Vital Signs Vital signs: Vital Signs Temp 98.3 F 05/08/18 11:00 Pulse 105 H 05/08/18 14:00 Resp 18 05/08/18 14:00 BP 147/89 05/08/18 14:00 Pulse Ox 96 05/08/18 14:00 Intake & Output 05/07/18 05/08/18 05/08/18 18:59 06:59 18:59 Intake Total 1355 1165 1280 Output Total 1060 1525 1160 Balance 295 -360 120 Weight 60.6 kg 59.3 kg Intake: IV 1025 1075 1030 Levofloxacin 500Mg-D5w 100 Pmx 500 mg In Dextrose/ Water 1 100ml.bag @ 100 mls/hr IVPB DAILY@2100 WIN[facility]RED Rx#:[id number] Magnesium Sulfate-D5w Pmx 200 1 gm In Dextrose/Water 1 100ml.bag @ 100 mls/hr IVPB Q1H [facility] Rx#: [id number] Magnesium Sulfate-D5w Pmx 200 1 gm In Dextrose/Water 1 100ml.bag @ 100 mls/hr IVPB Q1H [facility] Rx#: [id number] NS @ KVO 30 Sodium Chloride 0.9% 1, 825 975 300 000 ml @ 10 mls/hr IV . Q24H WINIFRED Rx#:[id number] Sodium Phosphate 10 mmol 500 In Sodium Chloride 0.9% 250 ml @ 125 mls/hr IVPB Q2H WIN[facility]RED Rx#:[id number] Oral 60 Tube Feeding 240 60 160 Other 90 30 30 Output: Urine 1060 1525 1160 Other: Voiding Method Indwelling Catheter Indwelling Catheter Indwelling Catheter # Voids 1 # Bowel Movements 1 - Exam GENERAL EXAM: Alert, pleasant, 50-year-old white female, to the vent, currently on assist-control mode of ventilation comfortable in no apparent distress. HEAD: Normocephalic/atraumatic. EYES: Normal reaction of pupils, equal size. Conjunctiva pink, sclera white. NOSE: Clear with pink turbinates. THROAT: No erythema or exudates. NECK: No masses, no JVD, no thyroid enlargement, no adenopathy. CHEST: No chest wall deformity. Symmetrical expansion. LUNGS: Equal air entry with diminished breath sounds bilaterally CVS: Regular rate and rhythm, normal S1 and S2, no gallops, no murmurs, no rubs ABDOMEN: Soft, nontender. No hepatosplenomegaly, normal bowel sounds, no guarding or rigidity. EXTREMITIES: No clubbing, no edema, no cyanosis, 2+ pulses and upper and lower extremities. MUSCULOSKELETAL: Muscle strength and tone normal. SPINE: No scoliosis or deformity SKIN: No rashes CENTRAL NERVOUS SYSTEM: Alert and oriented -3. No focal deficits, tone is normal in all 4 extremities. PSYCHIATRIC: Alert and oriented -3. Appropriate affect. Intact judgment and insight. - Labs CBC & Chem 7: 05/08/18 05:08 05/08/18 05:08 Labs: Abnormal Lab Results - Last 24 Hours (Table) 05/07/18 05/08/18 05/08/18 Range/Units 17:48 00:00 05:08 RBC 3.66 L (3.80-5.40) m/uL Hgb 11.1 L (11.4-16.0) gm/dL Hct 33.1 L (34.0-46.0) % Neutrophils # 8.0 H (1.3-7.7) k/uL Lymphocytes # 0.2 L (1.0-4.8) k/uL ABG pH (7.35-7.45) ABG pCO2 (35-45) mmHg ABG pO2 (83-108) mmHg ABG HCO3 (21-25) mmol/L ABG Total CO2 (19-24) mmol/L ABG O2 Saturation (94-97) % Potassium (3.5-5.1) mmol/L Carbon Dioxide (22-30) mmol/L Creatinine (0.52-1.04) mg/dL Glucose (74-99) mg/dL POC Glucose (mg/dL) 136 H 152 H (75-99) mg/dL Phosphorus (2.5-4.5) mg/dL 05/08/18 05/08/18 05/08/18 Range/Units 05:08 05:21 05:22 RBC (3.80-5.40) m/uL Hgb (11.4-16.0) gm/dL Hct (34.0-46.0) % Neutrophils # (1.3-7.7) k/uL Lymphocytes # (1.0-4.8) k/uL ABG pH 7.46 H (7.35-7.45) ABG pCO2 53 H (35-45) mmHg ABG pO2 126 H (83-108) mmHg ABG HCO3 37 H (21-25) mmol/L ABG Total CO2 39 H (19-24) mmol/L ABG O2 Saturation 99.4 H (94-97) % Potassium 2.8 L (3.5-5.1) mmol/L Carbon Dioxide 34 H (22-30) mmol/L Creatinine 0.33 L (0.52-1.04) mg/dL Glucose 125 H (74-99) mg/dL POC Glucose (mg/dL) 146 H (75-99) mg/dL Phosphorus 2.0 L (2.5-4.5) mg/dL 05/08/18 Range/Units 11:37 RBC (3.80-5.40) m/uL Hgb (11.4-16.0) gm/dL Hct (34.0-46.0) % Neutrophils # (1.3-7.7) k/uL Lymphocytes # (1.0-4.8) k/uL ABG pH (7.35-7.45) ABG pCO2 (35-45) mmHg ABG pO2 (83-108) mmHg ABG HCO3 (21-25) mmol/L ABG Total CO2 (19-24) mmol/L ABG O2 Saturation (94-97) % Potassium (3.5-5.1) mmol/L Carbon Dioxide (22-30) mmol/L Creatinine (0.52-1.04) mg/dL Glucose (74-99) mg/dL POC Glucose (mg/dL) 154 H (75-99) mg/dL Phosphorus (2.5-4.5) mg/dL Microbiology - Last 24 Hours (Table) 05/04/18 00:14 Blood Culture - Preliminary Blood No Growth after 96 hours 05/05/18 07:18 Gram Stain - Final Sputum Sputum Culture - Final Diphtheroid species Assessment and Plan Plan: Assessment 1 acute on chronic hypercapnic respiratory failure secondary to COPD exacerbation. The patient has severe advanced COPD. She has a permanent tracheostomy tube in place. She is currently vent dependent. We replaced her tracheostomy tube yesterday. Also inserted a Dobbhoff for medication and feeding. She tolerated the procedures well. As patient has advanced COPD. She will require a slow wean. I suggested the possibility of sending her to [facility] however she was not open to that suggestion. For now, we are trying to do once he is breathing trial on a daily basis. We are putting in a sitting up position in the bed. The patient will be given a pressure support of 10 and her tidal volume and respiratory rate will be monitored. At anxiety needs to be controlled more effectively and I will suggest increasing the Xanax dose. Her sinus a cardiac is well-controlled and the patient is tolerating her tube feeds. 2 chronic hypercapnic and hypoxic respiratory failure due to advanced COPD 3 history of permanent tracheostomy tube placement 4 fibromyalgia 5 chronic anxiety 6 chronic osteoporosis 7 previous history of smoking 8 electrode imbalance with hypokalemia and hypophosphatemia, replaced 9 sinus tachycardia, improved Plan suggested the possibility of sending this patient to [facility] for weaning off the mechanical ventilator. The patient did not agree to my suggestion this is something that we need to revisit at a later stage. Meanwhile, we'll increase the Xanax to control her anxiety more effective than the patient was placed on Xanax 1 mg every 6 hours [id number]. She'll be kept on a VC plus mode. She'll be given daily pressure support spontaneous breathing with a pressure support of 10. She is on a combination of bronchodilators and steroids. Chest x-ray shows hyperinflation without any acute findings. Tracheostomy tube is in a good location. No leaks on the tracheostomy tube which is a #6 Shiley. No other significant events. She is tolerating her tube feeds and her tube feeds will be advanced to goal. We'll continue to follow make further recommendations based on her progress. She is quite cachectic and weak and she has advanced lung disease with a BMI of 27.3. Long-term prognosis poor. We'll continue to follow. Critically care evaluation more than 30 minutes.
[2018-05-08] MEDS: ALPRAZolam 1 MG TAB PO PRN ×2 (14:44→20:54)
--- NOTE | 2018-05-08 16:05 | PN ---
PROGRESS NOTE DATE OF SERVICE: 05/08/2018 DATE OF SERVICE: This 58-year-old woman who was admitted with COPD acute exacerbation, acute respiratory failure also is on mechanical ventilation. Weaning trials has been on for Dr. Gil. Patient closely monitored in ICU. The patient also has a recent PEG tube insertion. Patient was started on Dobbhoff catheter and as well as the Cardizem 30 mg p.o. q.6h with better control of heart rate. At this time the patient is in sinus rhythm. Patient is being closely monitored. PAST MEDICAL HISTORY: Reviewed. REVIEW OF SYSTEMS: Could not be taken, the patient is on mechanical ventilation. The patient is more alert though. CURRENT MEDICATIONS: 1. Tylenol 500 mg q.6h p.r.n. 2. [place] 5 mg q.6h. 3. DuoNeb q.i.d. and p.r.n. 4. Xanax 1 mg q.6h p.r.n. 5. Pulmicort 1 mg b.i.d. 6. Peridex. 7. Cardizem 30 mg p.o. daily. 8. Perforomist 20 mg b.i.d. 9. Heparin subcu b.i.d. 10.Dilaudid q8h p.r.n. 11.NovoLog. 12.Levaquin 500 mg. 13.Solu-Medrol 60 IV q.6h. 14.Potassium and magnesium replacement protocol. 15.Protonix 40 daily. 16.Pravachol. 17.Ultram 50 mg p.o. q.6h p.r.n. PHYSICAL EXAM: Patient is alert, oriented x3. Pulse 105, blood pressure 146/89, respiration 18, temperature is normal, pulse ox 96% on 40% FiO2. HEENT: Conjunctivae normal. Oral mucosa moist. NECK: Tracheostomy. CARDIOVASCULAR SYSTEM: S1, S2 muffled. RESPIRATORY SYSTEM: Breath sounds diminished at the bases. Bilateral scattered rhonchi, expiratory wheezing and crackles. ABDOMEN: Soft, non-tender. LEGS: No edema. No swelling. NERVOUS SYSTEM: Diffusely weak, on mechanical ventilation, Dobbhoff catheter. SKIN: No skin rash. LABS: WBC 8.2, hemoglobin 11.1. ABGs noted. Sodium 130 potassium 2.8. ASSESSMENT: 1. Chronic obstructive pulmonary disease acute exacerbation with acute right lower lobe pneumonia, possibly gram-negative with acute hypoxic respiratory failure on mechanical ventilation. 2. History of recent tracheostomy and PEG tube. 3. Status post PEG tube removal. 4. Hypokalemia. 5. Tachycardia, possibly sinus. 6. History of chronic obstructive pulmonary disease with chronic hypoxic hypercarbic respiratory failure. 7. History of nicotine abuse. 8. History of fibromyalgia. 9. History of anxiety. 10.History of osteoporosis. 11.History of MRSA. 12.History of cholecystectomy. 13.History of hypomagnesemia. 14.Diphtheroids from the sputum. 15.FULL CODE. RECOMMENDATIONS AND DISCUSSION: Continue current medications, continue to monitor, continue symptomatic treatment, continue antibiotics, continue the rest of medications. Being followed by Dr. Gil. Continue the Cardizem. Otherwise, prognosis guarded because of multiple complex medical issues and further recommendations to follow. MMODL / IJN: [id number] /
[2018-05-08 17:33] LABS: Glucose,Whole Blood 147 mg/dL (75-99)
[2018-05-08] MEDS: HYDROcodone/APAP 5-325MG 1 EACH TAB PO PRN (17:42)
[2018-05-08] MEDS: PRAVASTATIN SODIUM 20 MG TAB PO SCH (20:53)
[2018-05-08] MEDS: LEVOFLOXACIN 500MG-D5W PMX 500 MG in DEXTROSE/WATER 1 100ML.BAG IVPB SCH (20:53)
[2018-05-08] MEDS: PANTOPRAZOLE 40 MG/10 ML VIAL IVP SCH (20:54)
[2018-05-08 23:59] LABS: Glucose,Whole Blood 158 mg/dL (75-99)
[2018-05-09] MEDS: methylPREDNISolone SOD SUCCI 125 MG/2 ML VIAL IV SCH ×5 (00:36→23:22)
[2018-05-09] MEDS: POTASSIUM BICARBONATE/CIT AC 20 MEQ TABLET.EFF NG-TUBE SCH ×2 (00:36→01:48)
[2018-05-09] MEDS: INSULIN ASPART (NovoLOG) 100 UNIT/ML VIAL SQ SCH ×5 (00:41→23:22)
[2018-05-09] MEDS: IPRATROPIUM-ALBUTEROL 3 ML NEB INHALATION SCH ×7 (01:08→23:33)
[2018-05-09 05:06] LABS: ABG Base Excess 21.4 mmol/L; ABG PCO2 51 mmHg (35-45); ABG PH 7.54 (7.35-7.45); ABG PO2 118 mmHg (83-108); ABG TCO2 45 mmol/L (19-24)
[2018-05-09 05:09] LABS: ABG HCO3 44 mmol/L (21-25)
[2018-05-09 05:27] LABS: Basophils # (A) 0.1 k/uL (0-0.2); Basophils % (A) 1 %; Eosinophils % (A) 1 %; HCT 35.2 % (34.0-46.0); HGB 11.3 gm/dL (11.4-16.0); Lymphocytes # (A) 0.3 k/uL (1.0-4.8); Lymphocytes % (A) 4 %; MCHC 32.1 g/dL (31.0-37.0); MCV 93.4 fL (80.0-100.0); Mean Platelet Volume 6.8; Monocytes # (A) 0.4 k/uL (0-1.0); Monocytes % (A) 4 %; Neutrophils # (A) 7.9 k/uL (1.3-7.7); Neutrophils % (A) 90 %; Platelet Count 341 k/uL (150-450); RBC 3.77 m/uL (3.80-5.40); WBC 8.8 k/uL (3.8-10.6)
[2018-05-09 05:52] LABS: Blood Urea Nitrogen 18 mg/dL (7-17); Calcium 8.8 mg/dL (8.4-10.2); Chloride 95 mmol/L (98-107); Glucose 141 mg/dL (74-99); Magnesium 1.8 mg/dL (1.6-2.3); Phosphorus 1.7 mg/dL (2.5-4.5); Potassium 3.7 mmol/L (3.5-5.1); Sodium 137 mmol/L (137-145)
[2018-05-09 05:58] LABS: Anion Gap 3 mmol/L; Carbon Dioxide 39 mmol/L (22-30)
[2018-05-09 06:13] LABS: Glucose,Whole Blood 150 mg/dL (75-99)
[2018-05-09] MEDS: HYDROmorphone 0.5 MG/0.5 ML SYRINGE IVP PRN ×3 (06:44→23:14)
[2018-05-09] MEDS: BUDESONIDE 1 MG/2 ML NEBU INHALATION SCH ×2 (07:18→19:41)
[2018-05-09] MEDS: FORMOTEROL FUMARATE 20 MCG/2 ML NEBU INHALATION SCH ×2 (07:18→19:41)
[2018-05-09] MEDS ORDERED: Magnesium Replacement Protocol 1 EACH MISC MISCELLANE PRN (07:22)
[2018-05-09] MEDS ORDERED: Phosphorus Replacement Protoco 1 EACH MISC MISCELLANE PRN (07:22)
[2018-05-09] MEDS ORDERED: Potassium Replacement Protocol 1 EACH MISC MISCELLANE PRN (07:22)
--- NOTE | 2018-05-09 07:22 | XR ---
EXAMINATION TYPE: XR chest 1V portable DATE OF EXAM: 05/09/2018 COMPARISON: 05/08/2018 INDICATION: Tube placement TECHNIQUE: Single frontal view of the chest is obtained. FINDINGS: The heart size is normal. The pulmonary vasculature is normal. There appears to be clearing of the lung base markings. Tracheostomy tube is in the midline. A Dobbhoff feeding tube is been placed with tip in the proximal stomach can be advanced. IMPRESSION: 1. No acute pulmonary process. 2. Dobbhoff feeding tube can be advanced an estimated 12 cm.
[2018-05-09] MEDS ORDERED: POTASSIUM BICARBONATE/CIT AC 20 MEQ TABLET.EFF NG-TUBE SCH (08:00)
[2018-05-09] MEDS: HEPARIN SODIUM,PORCINE 5,000 UNIT/ML 1 ML VIAL SQ SCH ×2 (08:10→21:29)
[2018-05-09] MEDS: MAGNESIUM SULFATE-D5W PMX 1 GM in DEXTROSE/WATER 1 100ML.BAG IVPB SCH ×2 (08:11→09:40)
[2018-05-09] MEDS: DILTIAZEM ORAL 30 MG TAB PO SCH ×4 (08:11→21:29)
[2018-05-09] MEDS: CHLORHEXIDINE GLUCONATE 15 ML CUP MUCOUS MEM SCH ×2 (08:11→21:28)
[2018-05-09] MEDS: POTASSIUM PHOSPHATE 10 MMOL in SODIUM CHLORIDE 0.9% 250 ML IV SCH ×2 (08:27→12:42)
[2018-05-09] MEDS: ALPRAZolam 1 MG TAB PO PRN (09:58)
[2018-05-09 11:52] LABS: Glucose,Whole Blood 161 mg/dL (75-99)
--- NOTE | 2018-05-09 13:07 | P.PN ---
Subjective Progress Note Date: 05/09/18 This is a 50-year-old white female patient that we saw in consultation yesterday. Patient was admitted to the hospital on O2 2018 for complaints of shortness of breath. Patient does have a chronic tracheostomy in place for multiple episodes of respiratory failure, this was done in January 2018 at [facility]. Patient lives in [place], and she was taken to the [facility] by EMS on O2 2018. She denied any recent fever , chills or cough. Chest x-ray at the [facility] showed the possibility of pneumonia. Chest x-ray was completed at this facility on 2018 and showed hyperinflated lungs with flattening of diaphragms suggesting COPD questionable subtle airspace opacities within the lower lungs. White blood cell count was 6.3, hemoglobin is 12.7, electrolytes were unremarkable, with the exception of CO2 which was elevated 33 suggesting chronic hypercapnic respiratory failure, B1 was a creatinine 0.35, urinalysis was negative for infection, influenza screen was negative. Patient was on trach collar, however last night patient started experiencing worsening shortness of breath, currently her inner cannula came out of the tracheostomy, and patient was severely hypoxemic, with O2 sat of around 48%. She was brought to the intensive care unit, in view of severe respiratory distress, and abnormal blood gases laced on the ventilator support. Initial blood gas this morning showed pO2 of 288, pCO2 of 100, and pH of 7.14, this was done and FiO2 100%. Patient was placed on mom assist-control mode of ventilation with a rate of 30, tidal vital 325, FiO2 50% and PEEP of 5. This morning were seeing the patient in the intensive care unit, she remains on assist control mode of ventilation, she is calm and comfortable, she is awake, in no acute distress, lung sounds are quite diminished, no significant rhonchi or wheezes. His chest x-ray has been reviewed with Dr. Gil, and showed trace bilateral pleural effusions, hyperinflated lungs. Vital signs are stable, with the exception of mild tachycardia, with a rate between 108-120 BPM, blood pressure is 80-100 systolic , and the diastolic blood pressure between 60-80 BPM. Patient is slightly oliguric, with a urine output between 5-15 mL. IV fluids were increased to 0.9 normal saline at a rate of 75 ML per hour, Diprivan and is currently at 50 mics per kilo per minute. Today's blood work shows some white blood cell count increased to 34.6, electrolytes were within normal limits, B1 of 17 and creatinine was 0.46. Urinalysis was negative for infection. Patient is on IV steroids, empiric antiemetics in the form of Levaquin, and nebulized bronchodilators. On today's evaluation of 05/06/2018, I'm seeing this patient for a follow-up. She is awake and she's off Diprivan this morning. She is receiving Ativan for anxiety pH remains on a mechanical ventilator. Her blood gases earlier this morning showed a component of respiratory alkalosis with a pH of 7.53 with a pCO2 of 36 and pO2 of 151. His was done by the patient's respiratory rate was at 30 with tidal volume of 3 on 25 and FiO2 of 40% and PEEP of 5. Based on this , I dropped a respiratory rate down to 20. She is doing well. She is awake and alert. She was given a short trial of pressure support mode of ventilation with a pressure support of 5 and PEEP of 5 and she was able to tolerate it for a total of 30 minutes. The tracheostomy tube catheter that she has does not have any parts available in our institution. I talked with respiratory and we are thinking of replacing it with a conventional Shiley tracheostomy tube with a later stage. The patient is still nothing by mouth. She does not have any tach 2. I've decided to proceed with a Dobbhoff tube insertion for enteral feeding and nutritional support. This will be also needed for medication. The patient is still having some sinus tachycardia. Her heart rate is ranging between 110 and 130 and is sinus. She is on IV fluids. She is receiving 0.9 normal saline at the rate of 75 mL an hour. She has an adequate urine output. She is afebrile. Her chest x-ray showing hyperinflation without evidence of any acute pneumonia or pulmonary infiltrates. She is quite anxious. She is able to communicate easily. The blood work is been all negative and within normal limits. Potassium is to be replaced. Phosphorus is to be replaced. Influenza screen was negative. Note that her COPD is advanced and the patient has had previous bouts of prolonged ventilator Failure requiring a long-term tracheostomy tube insertion. On today's evaluation of 05/07/2018 I'm seeing this patient for a follow-up. The patient is off Diprivan. The patient is awake and alert. She is less anxious compared to yesterday. Earlier this morning shows placed on a pressure support mode of ventilation. She was placed upper support of 5 and a PEEP of 5. Acid sequently put on a pressure support of 10 and eliminated the PEEP. She did well with this setting pulling tidal volumes above 300. Note that yesterday, I replaced this patient's tracheostomy tube. I put put in a #6 Shiley tracheostomy tube in nonfenestrated. I also inserted a Dobbhoff catheter in this patient. Both of this disease went fine without any major difficulties. The patient is currently receiving tube feeds in the form of vitamin 1.2 at the rate of 10 mL an hour and this will be gradually advanced to goal. She seems to be calm and comfortable. She seems to be doing well. She is awake. She is interactive. She denies having any pain. No synovitis or secretions. Chest x-ray shows COPD and hyperinflation and there are no other acute abnormalities noted. She remains on DuoNeb nebulized treatments around the clock, she remains on IV Solu-Medrol, once the Doppler was inserted, the patient was started on Cardizem 30 mg by mouth 4 times a day and her heart rate is under much better control. She remains in some mild Sinus tachycardia. She is on IV Protonix. She is doing also IV Levaquin. On 05/08/2018, the patient is awake and alert. We have her in a sitting up position in the bed. I have been a pressure support mode of ventilation at the pressure of 10. Doing well. Very anxious. She is requiring the Xanax around the clock and the Xanax dose has to be increased to control her anxiety levels. She is tolerating her tube feeds via Dobbhoff. She has a #[address] She is tolerating her tube feeds. No nausea. No vomiting. No chest pain. She is awake and alert and interactive. Her sinus tachycardia is improved. She remains on examination bronchodilators and steroids. Overnight, the patient was placed on VC plus mode with a tidal volume of 325 and a PEEP of 5 with an FiO2 of 40% and a PEEP of 5 and a rate of 20. This is her baseline respiratory rate in the volume cycle. No other significant events overnight. On today's evaluation of 05/09/2018, the patient is doing good progress. She is awake and alert. She is less anxious. I increased her Xanax up to 1 mg 4 times a day and she doing better with this regimen. She is much more comfortable. She is tolerating her tube feeds. She on same vent setting for today with IVC plus mode with a tidal volume of 325 and at 8 rate of 20 with an FiO2 of 40% with a PEEP of 5. The blood gases from today showed a pH of 7.54 with a pCO2 of 51 and pO2 of 118. She has developed some mild metabolic alkalosis. Her serum bicarb is up to 39. Chest x-ray shows no acute abnormalities. She is doing better. Rapid shallow breathing index is 86. The patient will be given a longer pressure support mode of ventilation today and I' m going to extend her probably for couple of hours, as yesterday she was able to do it only for 2 hours. She is able to communicate fairly well. No sinus tachycardia. She remains on bronchodilators. She remains on systemic steroids. No other significant events overnight otherwise for now. Objective - Vital Signs Vital signs: Vital Signs Temp 98.5 F 05/09/18 08:00 Pulse 96 05/09/18 11:46 Resp 21 05/09/18 11:00 BP 132/79 05/09/18 11:00 Pulse Ox 96 05/09/18 11:00 Intake & Output 05/08/18 05/09/18 05/09/18 18:59 06:59 18:59 Intake Total 1350 590 500 Output Total 2185 535 395 Balance -835 55 105 Weight 127.6 kg Intake: IV 1060 220 500 Levofloxacin 500Mg-D5w 100 Pmx 500 mg In Dextrose/ Water 1 100ml.bag @ 100 mls/hr IVPB DAILY@2100 WIN[facility]RED Rx#:[id number] Magnesium Sulfate-D5w Pmx 200 1 gm In Dextrose/Water 1 100ml.bag @ 100 mls/hr IVPB Q1H [facility] Rx#: [id number] Magnesium Sulfate-D5w Pmx 200 1 gm In Dextrose/Water 1 100ml.bag @ 100 mls/hr IVPB Q1H [facility] Rx#: [id number] NS @ KVO 60 10 Potassium Phosphate 10 250 mmol In Sodium Chloride 0 .9% 250 ml @ 125 mls/hr IV Q2H [facility] Rx#:[id number] Sodium Chloride 0.9% 1, 300 110 50 000 ml @ 10 mls/hr IV . Q24H [facility] Rx#:[id number] Sodium Phosphate 10 mmol 500 In Sodium Chloride 0.9% 250 ml @ 125 mls/hr IVPB Q2H [facility] Rx#:[id number] Oral 60 Tube Feeding 200 160 Other 30 210 Output: Urine 2185 535 395 Other: Voiding Method Indwelling Catheter Indwelling Catheter Indwelling Catheter # Voids 1 # Bowel Movements 1 - Exam GENERAL EXAM: Alert, pleasant, 50-year-old white female, to the vent, currently on assist-control mode of ventilation comfortable in no apparent distress. HEAD: Normocephalic/atraumatic. EYES: Normal reaction of pupils, equal size. Conjunctiva pink, sclera white. NOSE: Clear with pink turbinates. THROAT: No erythema or exudates. NECK: No masses, no JVD, no thyroid enlargement, no adenopathy. CHEST: No chest wall deformity. Symmetrical expansion. LUNGS: Equal air entry with diminished breath sounds bilaterally CVS: Regular rate and rhythm, normal S1 and S2, no gallops, no murmurs, no rubs ABDOMEN: Soft, nontender. No hepatosplenomegaly, normal bowel sounds, no guarding or rigidity. EXTREMITIES: No clubbing, no edema, no cyanosis, 2+ pulses and upper and lower extremities. MUSCULOSKELETAL: Muscle strength and tone normal. SPINE: No scoliosis or deformity SKIN: No rashes CENTRAL NERVOUS SYSTEM: Alert and oriented -3. No focal deficits, tone is normal in all 4 extremities. PSYCHIATRIC: Alert and oriented -3. Appropriate affect. Intact judgment and insight. - Labs CBC & Chem 7: 05/09/18 04:53 05/09/18 04:53 Labs: Abnormal Lab Results - Last 24 Hours (Table) 05/08/18 05/08/18 05/08/18 Range/Units 17:08 19:44 23:55 RBC (3.80-5.40) m/uL Hgb (11.4-16.0) gm/dL Neutrophils # (1.3-7.7) k/uL Lymphocytes # (1.0-4.8) k/uL ABG pH (7.35-7.45) ABG pCO2 (35-45) mmHg ABG pO2 (83-108) mmHg ABG HCO3 (21-25) mmol/L ABG Total CO2 (19-24) mmol/L ABG O2 Saturation (94-97) % Potassium 3.4 L (3.5-5.1) mmol/L Chloride (98-107) mmol/L Carbon Dioxide (22-30) mmol/L BUN (7-17) mg/dL Creatinine (0.52-1.04) mg/dL Glucose (74-99) mg/dL POC Glucose (mg/dL) 147 H 158 H (75-99) mg/dL Phosphorus (2.5-4.5) mg/dL 05/09/18 05/09/18 05/09/18 Range/Units 04:53 04:53 05:00 RBC 3.77 L (3.80-5.40) m/uL Hgb 11.3 L (11.4-16.0) gm/dL Neutrophils # 7.9 H (1.3-7.7) k/uL Lymphocytes # 0.3 L (1.0-4.8) k/uL ABG pH 7.54 H (7.35-7.45) ABG pCO2 51 H (35-45) mmHg ABG pO2 118 H (83-108) mmHg ABG HCO3 44 H* (21-25) mmol/L ABG Total CO2 45 H (19-24) mmol/L ABG O2 Saturation 99.0 H (94-97) % Potassium (3.5-5.1) mmol/L Chloride 95 L (98-107) mmol/L Carbon Dioxide 39 H (22-30) mmol/L BUN 18 H (7-17) mg/dL Creatinine 0.34 L (0.52-1.04) mg/dL Glucose 141 H (74-99) mg/dL POC Glucose (mg/dL) (75-99) mg/dL Phosphorus 1.7 L (2.5-4.5) mg/dL 05/09/18 05/09/18 Range/Units 06:10 11:48 RBC (3.80-5.40) m/uL Hgb (11.4-16.0) gm/dL Neutrophils # (1.3-7.7) k/uL Lymphocytes # (1.0-4.8) k/uL ABG pH (7.35-7.45) ABG pCO2 (35-45) mmHg ABG pO2 (83-108) mmHg ABG HCO3 (21-25) mmol/L ABG Total CO2 (19-24) mmol/L ABG O2 Saturation (94-97) % Potassium (3.5-5.1) mmol/L Chloride (98-107) mmol/L Carbon Dioxide (22-30) mmol/L BUN (7-17) mg/dL Creatinine (0.52-1.04) mg/dL Glucose (74-99) mg/dL POC Glucose (mg/dL) 150 H 161 H (75-99) mg/dL Phosphorus (2.5-4.5) mg/dL Microbiology - Last 24 Hours (Table) 05/04/18 00:14 Blood Culture - Preliminary Blood No Growth after 120 hours Assessment and Plan Plan: Assessment 1 acute on chronic hypercapnic respiratory failure secondary to COPD exacerbation. The patient has severe advanced COPD. the patient is doing daily spontaneous breathing child with a pressure support mode of ventilation. She is gradually extending the number of hours on this mode of ventilation. She is comfortable. Anxiety is under better control. Tracheostomy tube has been replaced. Chest x-ray findings remain unchanged. She remains on examination bronchodilators and steroids. No other significant events otherwise for now. This is obviously is slow wean. 2 chronic hypercapnic and hypoxic respiratory failure due to advanced COPD, on today's blood gas the patient showed some metabolic alkalosis probably related to bicarb retention. 3 history of permanent tracheostomy tube placement 4 fibromyalgia 5 chronic anxiety 6 chronic osteoporosis 7 previous history of smoking 8 electrode imbalance with hypokalemia and hypophosphatemia, replaced 9 sinus tachycardia, improved Plan We'll give the patient 2 doses of Diamox to 250 mg every 12 hours over the next 24 hours. Continue the rest of the bronchodilators and systemic steroids and antibiotics. Similar to yesterday, the weaning parameters was checked and the patient had a rapid shallow breathing index of 86. The patient will be given pressors support mode of ventilation and hopefully will extend the number of hours that she is utilizing everyday on this mode. We'll continue to follow make further recommendations based on her progress. This is a slow wean as mentioned. Blood gases was noted. Chest x-ray was noted. Ventilator was checked. Critically care evaluation, more than 30 minutes. Time with Patient: Greater than 30
--- NOTE | 2018-05-09 16:09 | PN ---
PROGRESS NOTE DATE OF SERVICE: 05/09/2018 This 58-year-old woman was admitted with COPD acute exacerbation, acute respiratory failure on mechanical ventilation. The CPAP trial is on at this time. Patient complains of constipation. Patient is on Cardizem p.o. also and Dobbhoff catheter also. PAST MEDICAL HISTORY: Reviewed. A chest x-ray done today which was personally reviewed by me showed minimal infiltrate. REVIEW OF SYSTEMS: Could not be taken, the patient is on mechanical ventilation. CURRENT MEDICATIONS: 1. Tylenol 500 mg q.6h. 2. [place] 5 mg. 3. Diamox 250 mg IV b.i.d. 4. DuoNeb q.i.d. and p.r.n. 5. Xanax. 6. Pulmicort 1 mg b.i.d. 7. Peridex 15 mL b.i.d. 8. Cardizem p.o. 30 q.i.d. 9. Perforomist 20 mg b.i.d. 10.Heparin 5 subcu b.i.d. 11.Dilaudid. 12.Levaquin 500 mg daily. 13.Solu-Medrol 60 IV q.8h. 14.Replacement protocol. 15.Protonix 40 mg daily. 16.Pravachol 20 mg q.h.s. 17.Propofol. 18.Ultram 50 mg q.6h p.r.n. PHYSICAL EXAM: Patient is alert, oriented x1, pulse 103, blood pressure 130/70, respiration 20, temperature is normal, pulse ox 97% on 40% FiO2. Vent settings are noted. HEENT: Conjunctivae normal. Oral mucosa moist. NECK: Tracheostomy. CARDIOVASCULAR: S1, S2. RESPIRATORY: Diminished breath sounds at the bases. A few scattered rhonchi and crackles. ABDOMEN: Soft, nontender. PEG tube removed. NERVOUS SYSTEM: Patient is on mechanical ventilation, diffusely weak. LABS: WBC 8.2, hemoglobin 11.3. ABGs pH of 7.54. CO2 is 44. Sodium 139, potassium 3.7. ASSESSMENT: 1. Chronic obstructive pulmonary disease acute exacerbation with acute right lower lobe pneumonia, possibly gram-negative with acute hypoxic respiratory failure on mechanical ventilation. 2. History of recent tracheostomy and PEG tube. 3. Status post PEG tube removal. 4. Hypokalemia. 5. Tachycardia, possibly sinus. 6. Possible metabolic alkalosis. 7. History of chronic obstructive pulmonary disease with acute hypoxic hypercarbic respiratory failure. 8. History of nicotine abuse. 9. History of fibromyalgia. 10.History of anxiety. 11.History of osteoporosis. 12.History of MRSA. 13.History of cholecystectomy. 14.Hypomagnesemia. 15.Diphtheroids from the sputum. 16.FULL CODE. RECOMMENDATIONS AND DISCUSSION: Continue current management, continue symptomatic treatment, continue broad-spectrum antibiotics, continue bronchodilators and steroids. Diamox. Weaning per Dr. Gil. DVT prophylaxis and subcu heparin and monitor fluid and electrolytes balance closely. Guarded prognosis. Further recommendations to follow. MMODL / IJN: [id number] /
[2018-05-09 18:49] LABS: Glucose,Whole Blood 148 mg/dL (75-99)
[2018-05-09] MEDS: SODIUM CHLORIDE 0.9% 1,000 ML IV SCH (18:54)
[2018-05-09] MEDS: PRAVASTATIN SODIUM 20 MG TAB PO SCH (21:29)
[2018-05-09] MEDS: LEVOFLOXACIN 500MG-D5W PMX 500 MG in DEXTROSE/WATER 1 100ML.BAG IVPB SCH (21:29)
[2018-05-09] MEDS: PANTOPRAZOLE 40 MG/10 ML VIAL IVP SCH (21:29)
[2018-05-09] MEDS: HYDROcodone/APAP 5-325MG 1 EACH TAB PO PRN (21:33)
[2018-05-09 23:44] LABS: Glucose,Whole Blood 135 mg/dL (75-99)
[2018-05-10] MEDS: IPRATROPIUM-ALBUTEROL 3 ML NEB INHALATION SCH ×6 (03:06→23:32)
[2018-05-10] MEDS: HYDROcodone/APAP 5-325MG 1 EACH TAB PO PRN ×2 (04:51→18:06)
[2018-05-10 05:06] LABS: Basophils # (A) 0.1 k/uL (0-0.2); Basophils % (A) 1 %; Eosinophils # (A) 0.1 k/uL (0-0.7); Eosinophils % (A) 1 %; HCT 36.2 % (34.0-46.0); HGB 11.2 gm/dL (11.4-16.0); Lymphocytes # (A) 0.2 k/uL (1.0-4.8); Lymphocytes % (A) 2 %; MCH 28.8 pg (25.0-35.0); MCHC 31.1 g/dL (31.0-37.0); MCV 92.5 fL (80.0-100.0); Mean Platelet Volume 6.9; Monocytes # (A) 0.4 k/uL (0-1.0); Monocytes % (A) 3 %; Neutrophils # (A) 11.1 k/uL (1.3-7.7); Neutrophils % (A) 93 %; Platelet Count 400 k/uL (150-450); RBC 3.91 m/uL (3.80-5.40); RDW 14.8 % (11.5-15.5); WBC 11.9 k/uL (3.8-10.6)
[2018-05-10 05:15] LABS: Anion Gap 4 mmol/L; Blood Urea Nitrogen 20 mg/dL (7-17); Carbon Dioxide 35 mmol/L (22-30); Chloride 101 mmol/L (98-107); Glucose 149 mg/dL (74-99); Magnesium 1.7 mg/dL (1.6-2.3); Phosphorus 2.5 mg/dL (2.5-4.5); Potassium 2.9 mmol/L (3.5-5.1); Sodium 140 mmol/L (137-145)
[2018-05-10] MEDS ORDERED: Potassium Replacement Protocol 1 EACH MISC MISCELLANE PRN (05:18)
[2018-05-10 05:28] LABS: ABG Base Excess 10.5 mmol/L; ABG HCO3 35 mmol/L (21-25); ABG Oxygen Saturation 99.2 % (94-97); ABG PCO2 56 mmHg (35-45); ABG PH 7.41 (7.35-7.45); ABG PO2 132 mmHg (83-108); ABG TCO2 37 mmol/L (19-24)
[2018-05-10] MEDS ORDERED: POTASSIUM BICARBONATE/CIT AC 20 MEQ TABLET.EFF NG-TUBE SCH (06:00)
[2018-05-10] MEDS: INSULIN ASPART (NovoLOG) 100 UNIT/ML VIAL SQ SCH ×3 (06:12→17:53)
[2018-05-10] MEDS: POTASSIUM CHLORIDE 10 MEQ in WATER FOR INJECTION 1 100ML.BAG IVPB SCH ×7 (06:12→21:43)
[2018-05-10] MEDS: MAGNESIUM SULFATE-D5W PMX 1 GM in DEXTROSE/WATER 1 100ML.BAG IVPB SCH ×2 (06:12→08:08)
[2018-05-10] MEDS: methylPREDNISolone SOD SUCCI 125 MG/2 ML VIAL IV SCH (06:13)
[2018-05-10 06:17] LABS: Glucose,Whole Blood 132 mg/dL (75-99)
[2018-05-10] MEDS: FORMOTEROL FUMARATE 20 MCG/2 ML NEBU INHALATION SCH ×2 (07:16→18:52)
[2018-05-10] MEDS: BUDESONIDE 1 MG/2 ML NEBU INHALATION SCH ×2 (07:16→18:52)
[2018-05-10] MEDS: HYDROmorphone 0.5 MG/0.5 ML SYRINGE IVP PRN ×2 (08:07→21:44)
[2018-05-10] MEDS: CHLORHEXIDINE GLUCONATE 15 ML CUP MUCOUS MEM SCH ×2 (09:10→21:43)
[2018-05-10] MEDS: HEPARIN SODIUM,PORCINE 5,000 UNIT/ML 1 ML VIAL SQ SCH ×2 (09:10→21:43)
[2018-05-10] MEDS: DILTIAZEM ORAL 30 MG TAB PO SCH ×4 (09:10→21:44)
--- NOTE | 2018-05-10 09:27 | XR ---
EXAMINATION TYPE: XR chest 1V portable DATE OF EXAM: 05/10/2018 COMPARISON: 05/09/2018 HISTORY: Tube placement TECHNIQUE: Single frontal view of the chest is obtained. FINDINGS: Tracheostomy tube and feeding tube seen extending into the abdomen. Diffuse emphysematous changes are noted. Basilar subsegmental atelectasis or infiltrate. Atherosclerotic change aorta. IMPRESSION: Diffuse COPD with basilar atelectasis or infiltrate. Feeding tube in similar position to the prior exam.
[2018-05-10 12:44] LABS: Glucose,Whole Blood 159 mg/dL (75-99)
[2018-05-10] MEDS: ALPRAZolam 1 MG TAB PO PRN (13:01)
--- NOTE | 2018-05-10 15:12 | P.PN ---
Subjective Progress Note Date: 05/10/18 This is a 50-year-old white female patient that we saw in consultation yesterday. Patient was admitted to the hospital on O2 2018 for complaints of shortness of breath. Patient does have a chronic tracheostomy in place for multiple episodes of respiratory failure, this was done in January 2018 at [facility]. Patient lives in [place], and she was taken to the [facility] by EMS on O2 2018. She denied any recent fever , chills or cough. Chest x-ray at the [facility] showed the possibility of pneumonia. Chest x-ray was completed at this facility on 2018 and showed hyperinflated lungs with flattening of diaphragms suggesting COPD questionable subtle airspace opacities within the lower lungs. White blood cell count was 6.3, hemoglobin is 12.7, electrolytes were unremarkable, with the exception of CO2 which was elevated 33 suggesting chronic hypercapnic respiratory failure, B1 was a creatinine 0.35, urinalysis was negative for infection, influenza screen was negative. Patient was on trach collar, however last night patient started experiencing worsening shortness of breath, currently her inner cannula came out of the tracheostomy, and patient was severely hypoxemic, with O2 sat of around 48%. She was brought to the intensive care unit, in view of severe respiratory distress, and abnormal blood gases laced on the ventilator support. Initial blood gas this morning showed pO2 of 288, pCO2 of 100, and pH of 7.14, this was done and FiO2 100%. Patient was placed on mom assist-control mode of ventilation with a rate of 30, tidal vital 325, FiO2 50% and PEEP of 5. This morning were seeing the patient in the intensive care unit, she remains on assist control mode of ventilation, she is calm and comfortable, she is awake, in no acute distress, lung sounds are quite diminished, no significant rhonchi or wheezes. His chest x-ray has been reviewed with Dr. Gli, and showed trace bilateral pleural effusions, hyperinflated lungs. Vital signs are stable, with the exception of mild tachycardia, with a rate between 108-120 BPM, blood pressure is 80-100 systolic , and the diastolic blood pressure between 60-80 BPM. Patient is slightly oliguric, with a urine output between 5-15 mL. IV fluids were increased to 0.9 normal saline at a rate of 75 ML per hour, Diprivan and is currently at 50 mics per kilo per minute. Today's blood work shows some white blood cell count increased to 34.6, electrolytes were within normal limits, B1 of 17 and creatinine was 0.46. Urinalysis was negative for infection. Patient is on IV steroids, empiric antiemetics in the form of Levaquin, and nebulized bronchodilators. On today's evaluation of 05/06/2018, I'm seeing this patient for a follow-up. She is awake and she's off Diprivan this morning. She is receiving Ativan for anxiety pH remains on a mechanical ventilator. Her blood gases earlier this morning showed a component of respiratory alkalosis with a pH of 7.53 with a pCO2 of 36 and pO2 of 151. His was done by the patient's respiratory rate was at 30 with tidal volume of 3 on 25 and FiO2 of 40% and PEEP of 5. Based on this , I dropped a respiratory rate down to 20. She is doing well. She is awake and alert. She was given a short trial of pressure support mode of ventilation with a pressure support of 5 and PEEP of 5 and she was able to tolerate it for a total of 30 minutes. The tracheostomy tube catheter that she has does not have any parts available in our institution. I talked with respiratory and we are thinking of replacing it with a conventional Shiley tracheostomy tube with a later stage. The patient is still nothing by mouth. She does not have any tach 2. I've decided to proceed with a Dobbhoff tube insertion for enteral feeding and nutritional support. This will be also needed for medication. The patient is still having some sinus tachycardia. Her heart rate is ranging between 110 and 130 and is sinus. She is on IV fluids. She is receiving 0.9 normal saline at the rate of 75 mL an hour. She has an adequate urine output. She is afebrile. Her chest x-ray showing hyperinflation without evidence of any acute pneumonia or pulmonary infiltrates. She is quite anxious. She is able to communicate easily. The blood work is been all negative and within normal limits. Potassium is to be replaced. Phosphorus is to be replaced. Influenza screen was negative. Note that her COPD is advanced and the patient has had previous bouts of prolonged ventilator Failure requiring a long-term tracheostomy tube insertion. On today's evaluation of 05/07/2018 I'm seeing this patient for a follow-up. The patient is off Diprivan. The patient is awake and alert. She is less anxious compared to yesterday. Earlier this morning shows placed on a pressure support mode of ventilation. She was placed upper support of 5 and a PEEP of 5. Acid sequently put on a pressure support of 10 and eliminated the PEEP. She did well with this setting pulling tidal volumes above 300. Note that yesterday, I replaced this patient's tracheostomy tube. I put put in a #6 Shiley tracheostomy tube in nonfenestrated. I also inserted a Dobbhoff catheter in this patient. Both of this disease went fine without any major difficulties. The patient is currently receiving tube feeds in the form of vitamin 1.2 at the rate of 10 mL an hour and this will be gradually advanced to goal. She seems to be calm and comfortable. She seems to be doing well. She is awake. She is interactive. She denies having any pain. No synovitis or secretions. Chest x-ray shows COPD and hyperinflation and there are no other acute abnormalities noted. She remains on DuoNeb nebulized treatments around the clock, she remains on IV Solu-Medrol, once the Doppler was inserted, the patient was started on Cardizem 30 mg by mouth 4 times a day and her heart rate is under much better control. She remains in some mild Sinus tachycardia. She is on IV Protonix. She is doing also IV Levaquin. On 05/08/2018, the patient is awake and alert. We have her in a sitting up position in the bed. I have been a pressure support mode of ventilation at the pressure of 10. Doing well. Very anxious. She is requiring the Xanax around the clock and the Xanax dose has to be increased to control her anxiety levels. She is tolerating her tube feeds via Dobbhoff. She has a #[address] She is tolerating her tube feeds. No nausea. No vomiting. No chest pain. She is awake and alert and interactive. Her sinus tachycardia is improved. She remains on examination bronchodilators and steroids. Overnight, the patient was placed on VC plus mode with a tidal volume of 325 and a PEEP of 5 with an FiO2 of 40% and a PEEP of 5 and a rate of 20. This is her baseline respiratory rate in the volume cycle. No other significant events overnight. On today's evaluation of 05/09/2018, the patient is doing good progress. She is awake and alert. She is less anxious. I increased her Xanax up to 1 mg 4 times a day and she doing better with this regimen. She is much more comfortable. She is tolerating her tube feeds. She on same vent setting for today with IVC plus mode with a tidal volume of 325 and at 8 rate of 20 with an FiO2 of 40% with a PEEP of 5. The blood gases from today showed a pH of 7.54 with a pCO2 of 51 and pO2 of 118. She has developed some mild metabolic alkalosis. Her serum bicarb is up to 39. Chest x-ray shows no acute abnormalities. She is doing better. Rapid shallow breathing index is 86. The patient will be given a longer pressure support mode of ventilation today and I' m going to extend her probably for couple of hours, as yesterday she was able to do it only for 2 hours. She is able to communicate fairly well. No sinus tachycardia. She remains on bronchodilators. She remains on systemic steroids. No other significant events overnight otherwise for now. 05/10/2018 I'm seeing this patient for a follow-up. The patient is being mechanically ventilated with an assist-control mode of ventilation him a volume cycled with essentially the same rate. 4 yesterday, the patient tolerated a follow-up pressure support mode of ventilation the morning and another 2 hours in the afternoon. Not anxious this morning. She has a hypokalemia and hypomagnesemia and both are being replaced. We checked a set of weaning parameters this morning and the patient rapid shallow breathing index was 80 and what she on now on a pressure support mode of ventilation. Her chest x-ray findings are stable. She is on bronchodilators. IV Solu Medrol will be weaned off. She is tolerating her tube feeds. She is weak. She is awake and alert. No other significant events overnight. No fever or chills. No altered mentation. Note that the patient had shown a component of metabolic alkalosis on yesterday's blood gas. Based on that, the patient was given 2 doses of Diamox 250 mg IV push. Her morning blood gases showed improvement and acid base status. The patient is at 7.41 with a pCO2 of 56 and pO2 of 132 and this was done on a tidal volume of 325 with a respiratory rate of 20 and FiO2 of 40% and a PEEP of 5. Objective - Vital Signs Vital signs: Vital Signs Temp 97.9 F 05/10/18 08:00 Pulse 98 05/10/18 14:00 Resp 30 H 05/10/18 14:00 BP 145/85 05/10/18 14:00 Pulse Ox 97 05/10/18 14:00 Intake & Output 05/09/18 05/10/18 05/10/18 18:59 06:59 18:59 Intake Total 1085 1030 770 Output Total 2445 905 2075 Balance -1360 125 -1305 Weight 59.1 kg 59.1 kg Intake: IV 1045 420 650 Levofloxacin 500Mg-D5w 100 Pmx 500 mg In Dextrose/ Water 1 100ml.bag @ 100 mls/hr IVPB DAILY@2100 [facility] Rx#:[id number] Magnesium Sulfate-D5w Pmx 300 100 1 gm In Dextrose/Water 1 100ml.bag @ 100 mls/hr IVPB Q1H [facility] Rx#: [id number] Potassium Chloride 10 meq 100 600 In Water For Injection 1 100ml.bag @ 100 mls/hr IVPB Q1HR [facility] Rx#: [id number] Potassium Phosphate 10 625 mmol In Sodium Chloride 0 .9% 250 ml @ 125 mls/hr IV Q2H [facility] Rx#:[id number] Sodium Chloride 0.9% 1, 120 120 50 000 ml @ 10 mls/hr IV . Q24H [facility] Rx#:[id number] Tube Feeding 40 520 120 Other 90 Output: Urine 2445 905 2075 Other: Voiding Method Indwelling Catheter Indwelling Catheter Indwelling Catheter - Exam GENERAL EXAM: Alert, pleasant, 50-year-old white female, to the vent, currently on assist-control mode of ventilation comfortable in no apparent distress. HEAD: Normocephalic/atraumatic. EYES: Normal reaction of pupils, equal size. Conjunctiva pink, sclera white. NOSE: Clear with pink turbinates. THROAT: No erythema or exudates. NECK: No masses, no JVD, no thyroid enlargement, no adenopathy. CHEST: No chest wall deformity. Symmetrical expansion. LUNGS: Equal air entry with diminished breath sounds bilaterally CVS: Regular rate and rhythm, normal S1 and S2, no gallops, no murmurs, no rubs ABDOMEN: Soft, nontender. No hepatosplenomegaly, normal bowel sounds, no guarding or rigidity. EXTREMITIES: No clubbing, no edema, no cyanosis, 2+ pulses and upper and lower extremities. MUSCULOSKELETAL: Muscle strength and tone normal. SPINE: No scoliosis or deformity SKIN: No rashes CENTRAL NERVOUS SYSTEM: Alert and oriented -3. No focal deficits, tone is normal in all 4 extremities. PSYCHIATRIC: Alert and oriented -3. Appropriate affect. Intact judgment and insight. - Labs CBC & Chem 7: 05/10/18 04:32 05/10/18 04:32 Labs: Abnormal Lab Results - Last 24 Hours (Table) 05/09/18 05/09/18 05/10/18 Range/Units 18:46 23:18 04:32 WBC 11.9 H (3.8-10.6) k/uL Hgb 11.2 L (11.4-16.0) gm/dL Neutrophils # 11.1 H (1.3-7.7) k/uL Lymphocytes # 0.2 L (1.0-4.8) k/uL ABG pCO2 (35-45) mmHg ABG pO2 (83-108) mmHg ABG HCO3 (21-25) mmol/L ABG Total CO2 (19-24) mmol/L ABG O2 Saturation (94-97) % Potassium (3.5-5.1) mmol/L Carbon Dioxide (22-30) mmol/L BUN (7-17) mg/dL Creatinine (0.52-1.04) mg/dL Glucose (74-99) mg/dL POC Glucose (mg/dL) 148 H 135 H (75-99) mg/dL 05/10/18 05/10/18 05/10/18 Range/Units 04:32 05:30 05:50 WBC (3.8-10.6) k/uL Hgb (11.4-16.0) gm/dL Neutrophils # (1.3-7.7) k/uL Lymphocytes # (1.0-4.8) k/uL ABG pCO2 56 H (35-45) mmHg ABG pO2 132 H (83-108) mmHg ABG HCO3 35 H (21-25) mmol/L ABG Total CO2 37 H (19-24) mmol/L ABG O2 Saturation 99.2 H (94-97) % Potassium 2.9 L (3.5-5.1) mmol/L Carbon Dioxide 35 H (22-30) mmol/L BUN 20 H (7-17) mg/dL Creatinine 0.46 L (0.52-1.04) mg/dL Glucose 149 H (74-99) mg/dL POC Glucose (mg/dL) 132 H (75-99) mg/dL 05/10/18 Range/Units 12:40 WBC (3.8-10.6) k/uL Hgb (11.4-16.0) gm/dL Neutrophils # (1.3-7.7) k/uL Lymphocytes # (1.0-4.8) k/uL ABG pCO2 (35-45) mmHg ABG pO2 (83-108) mmHg ABG HCO3 (21-25) mmol/L ABG Total CO2 (19-24) mmol/L ABG O2 Saturation (94-97) % Potassium (3.5-5.1) mmol/L Carbon Dioxide (22-30) mmol/L BUN (7-17) mg/dL Creatinine (0.52-1.04) mg/dL Glucose (74-99) mg/dL POC Glucose (mg/dL) 159 H (75-99) mg/dL Microbiology - Last 24 Hours (Table) 05/04/18 00:14 Blood Culture - Final Blood No Growth after 144 hours Assessment and Plan Plan: Assessment 1 acute on chronic hypercapnic respiratory failure secondary to COPD exacerbation. The patient has severe advanced COPD. the patient is doing daily spontaneous breathing child with a pressure support mode of ventilation. She is gradually extending the number of hours on this mode of ventilation. She is comfortable. Anxiety is under better control. Tracheostomy tube has been replaced. Chest x-ray findings remain unchanged. She remains on examination bronchodilators and steroids. No other significant events otherwise for now. This is obviously is slow wean. 2 chronic hypercapnic and hypoxic respiratory failure due to advanced COPD, on today's blood gas the patient showed some metabolic alkalosis probably related to bicarb retention. 3 history of permanent tracheostomy tube placement 4 fibromyalgia 5 chronic anxiety 6 chronic osteoporosis 7 previous history of smoking 8 electrode imbalance with hypokalemia and hypophosphatemia, replaced 9 sinus tachycardia, improved Plan Just continue the bronchodilators for now. The IV Solu Medrol to 40 Mg Every 12 Hours. Replace Potassium. Weaning Parameters Were Noted. Give the Patient a Spontaneous Breathing Trial Utilizing a Pressure Support Mode of Ventilation. I Am Going to Make Recommendations Chest with This Patient for [facility] Where She Can Undergo More Appropriate and Vigorous Daily Breathing Trials and Weaning off the Mechanical Ventilator. This May Be a Prolonged Weaning. The patient was given Diamox in her acid base status improves. Her morning blood gases shows improvement in the underlying metabolic alkalosis. The Diamox will be discontinued. The Levaquin will be discontinued. The patient will be given a spontaneous breathing trial a pressure support mode of ventilation. We'll gradually prolong the duration a pressure support wean. We' ll continue to follow. The patient is critical. This evaluation was done and more than 30 minutes
[2018-05-10] MEDS ORDERED: methylPREDNISolone SOD SUCCI 40 MG/ML 1 ML VIAL IV SCH (16:00)
[2018-05-10] MEDS: ACETAMINOPHEN TAB 500 MG TAB PO PRN (16:35)
[2018-05-10 17:46] LABS: Glucose,Whole Blood 122 mg/dL (75-99)
[2018-05-10] MEDS: SODIUM CHLORIDE 0.9% 1,000 ML IV SCH (17:53)
--- NOTE | 2018-05-10 18:39 | PN ---
PROGRESS NOTE DATE OF SERVICE: 05/10/2018 This 58-year-old woman was admitted with acute respiratory failure and COPD acute exacerbation also on mechanical ventilation. The patient is undergoing weaning transfer at this time. The patient was on CPAP previously. The patient is off pressor support. The patient was on broad spectrum IV antibiotics. Dr. Gil is following the patient closely. The patient has also been started on Cardizem with control of the heart rates. The patient is currently in sinus rhythm. PAST MEDICAL HISTORY: Reviewed. REVIEW OF SYSTEMS: Could not be taken. CURRENT MEDICATIONS: Reviewed which include: MMODL / IJN: [id number] /
--- NOTE | 2018-05-10 19:30 | PN ---
PROGRESS NOTE ADDENDUM: This is a continuation of the progress note. DATE OF SERVICE: 05/10/2018 This 58-year-old woman who was admitted with respiratory failure and COPD is being closely monitored. CURRENT MEDICATIONS: Please note: 1. Tylenol 500 q.6h p.r.n. 2. [place] 5 mg at bedtime. 3. DuoNeb q.i.d. and p.r.n. 4. Xanax 1 mg q6h p.r.n. 5. Pulmicort 1 mg daily. 6. Peridex 15 mL b.i.d. 7. Cardizem CD 30 mg daily. 8. Perforomist 20 mg b.i.d. 9. Heparin 5000 subcu b.i.d. 10.Dilaudid 0.5 mg q8. 11.NovoLog scale. 12.Solu-Medrol 40 IV b.i.d. 13.Magnesium, potassium, phosphorus replacement protocols. 14.Protonix 40 mg daily. 15.Pravachol. 16.Ultram. PHYSICAL EXAM: Patient is mechanically ventilated and sedated. Pulse is 116. Blood pressure 135/86, respiratory 26, temperature normal, pulse ox 92 percent on trach collar. HEENT: Conjunctivae normal. Oral mucosa moist. Neck is no jugular venous distention. No carotid bruit. No lymph node enlargement. Tracheostomy present. Cardiovascular System: S1, S2 muffled. Tachycardia. Respirations: Breath sounds diminished in the bases. Bilateral scattered rhonchi and expiratory crackles. ABDOMEN: Soft. Previous PEG tube in place. Nontender. Nervous system: Diffusely weak. Skin: No ulcer, rash or bleeding. JOINTS: No active deforming arthropathy. LABS: WBC 11.2, hemoglobin 11.8, ABGs noted. Sodium 140, potassium 2.9. ASSESSMENT: 1. Chronic obstructive pulmonary disease acute exacerbation with acute right lower lobe pneumonia possibly gram-negative with acute hypoxic respiratory failure on mechanical ventilation. 2. History of recent tracheostomy and PEG tube. 3. Severe hypokalemia. 4. Status post PEG tube removal. 5. Hypomagnesemia. 6. Tachycardia, possibly sinus. 7. Possible metabolic alkalosis. 8. History of chronic obstructive pulmonary disease with acute hypoxic hypercarbic respiratory failure. 9. History of nicotine dependence. 10.History of fibromyalgia. 11.History of anxiety. 12.Osteoporosis. 13.History of MRSA. 14.History of cholecystectomy. 15.History of had diphtheroids from the sputum. 16.FULL CODE. RECOMMENDATIONS AND DISCUSSION: Recommend to continue current medications. Continue to monitor. Symptomatic treatment. Replace potassium and replace magnesium. Replacement protocol has been used. Bronchodilators. I would also recommend a repeat lytes on a stat basis and continue to monitor. Guarded prognosis because of the multiple complex medical issues and further recommendations to follow. See orders for details. We will continue with corrections and replacement. Otherwise bronchodilators, rest of the medications per Dr. Gil. Prognosis guarded. Discussed with staff. Further recommendations to follow. MMODL / IJN: [id number] /
[2018-05-10 19:34] LABS: Potassium 3.6 mmol/L (3.5-5.1)
[2018-05-10] MEDS: PANTOPRAZOLE 40 MG/10 ML VIAL IVP SCH (21:44)
[2018-05-10] MEDS: methylPREDNISolone SOD SUCCI 40 MG/ML 1 ML VIAL IV SCH (21:44)
[2018-05-10] MEDS: PRAVASTATIN SODIUM 20 MG TAB PO SCH (22:35)
[2018-05-10 23:58] LABS: Glucose,Whole Blood 123 mg/dL (75-99)
[2018-05-11] MEDS: POTASSIUM CHLORIDE 10 MEQ in WATER FOR INJECTION 1 100ML.BAG IVPB SCH (00:16)
[2018-05-11] MEDS: INSULIN ASPART (NovoLOG) 100 UNIT/ML VIAL SQ SCH ×5 (00:18→23:56)
[2018-05-11] MEDS: IPRATROPIUM-ALBUTEROL 3 ML NEB INHALATION SCH ×5 (03:21→19:56)
[2018-05-11 05:23] LABS: Basophils # (A) 0.1 k/uL (0-0.2); Basophils % (A) 0 %; Eosinophils # (A) 0.1 k/uL (0-0.7); Eosinophils % (A) 1 %; HCT 37.9 % (34.0-46.0); Lymphocytes # (A) 0.4 k/uL (1.0-4.8); Lymphocytes % (A) 3 %; MCH 29.5 pg (25.0-35.0); MCHC 31.7 g/dL (31.0-37.0); MCV 93.1 fL (80.0-100.0); Mean Platelet Volume 6.3; Monocytes # (A) 0.5 k/uL (0-1.0); Monocytes % (A) 3 %; Neutrophils # (A) 14.4 k/uL (1.3-7.7); Neutrophils % (A) 93 %; Platelet Count 443 k/uL (150-450); RBC 4.07 m/uL (3.80-5.40); RDW 14.9 % (11.5-15.5); WBC 15.5 k/uL (3.8-10.6)
[2018-05-11 05:25] LABS: ABG Base Excess 10.1 mmol/L; ABG HCO3 35 mmol/L (21-25); ABG PCO2 56 mmHg (35-45); ABG PH 7.41 (7.35-7.45); ABG PO2 131 mmHg (83-108); ABG TCO2 37 mmol/L (19-24)
[2018-05-11] MEDS: HYDROcodone/APAP 5-325MG 1 EACH TAB PO PRN ×2 (05:31→12:33)
[2018-05-11 05:37] LABS: Anion Gap 4 mmol/L; Blood Urea Nitrogen 25 mg/dL (7-17); Calcium 9.2 mg/dL (8.4-10.2); Carbon Dioxide 33 mmol/L (22-30); Chloride 101 mmol/L (98-107); Glucose 139 mg/dL (74-99); Magnesium 1.7 mg/dL (1.6-2.3); Phosphorus 2.3 mg/dL (2.5-4.5); Potassium 3.8 mmol/L (3.5-5.1); Sodium 138 mmol/L (137-145)
[2018-05-11] MEDS ORDERED: Phosphorus Replacement Protoco 1 EACH MISC MISCELLANE PRN (05:48)
[2018-05-11] MEDS ORDERED: POTASSIUM PHOSPHATE 10 MMOL in SODIUM CHLORIDE 0.9% 250 ML IV ONE (06:00)
[2018-05-11 06:10] LABS: Glucose,Whole Blood 143 mg/dL (75-99)
[2018-05-11] MEDS: ALPRAZolam 1 MG TAB PO PRN ×3 (06:21→22:51)
[2018-05-11] MEDS: MAGNESIUM SULFATE-D5W PMX 1 GM in DEXTROSE/WATER 1 100ML.BAG IVPB SCH ×2 (06:22→09:32)
[2018-05-11] MEDS: BUDESONIDE 1 MG/2 ML NEBU INHALATION SCH ×2 (07:29→19:56)
[2018-05-11] MEDS: FORMOTEROL FUMARATE 20 MCG/2 ML NEBU INHALATION SCH ×2 (07:50→19:56)
--- NOTE | 2018-05-11 08:23 | XR ---
EXAMINATION TYPE: XR chest 1V portable DATE OF EXAM: 05/11/2018 COMPARISON: Prior chest x-ray 05/10/2018 HISTORY: Tracheostomy tube, abnormal chest x-ray, feeding tube TECHNIQUE: Single frontal view of the chest is obtained. FINDINGS: Tracheostomy tube and feeding tube are present, distal tip of the Dobbhoff tube is in the left upper quadrant overlying the stomach. There is no evident pneumothorax. Patchy basilar density m ay have improved somewhat in the interval. Heart size is stable. The aorta is dense. IMPRESSION: There may be some improvement in aeration.
[2018-05-11] MEDS: HYDROmorphone 0.5 MG/0.5 ML SYRINGE IVP PRN ×2 (09:06→20:54)
[2018-05-11] MEDS: CHLORHEXIDINE GLUCONATE 15 ML CUP MUCOUS MEM SCH ×2 (09:32→21:01)
[2018-05-11] MEDS: DILTIAZEM ORAL 30 MG TAB PO SCH ×4 (09:32→21:01)
[2018-05-11] MEDS: methylPREDNISolone SOD SUCCI 40 MG/ML 1 ML VIAL IV SCH ×2 (09:33→21:01)
[2018-05-11] MEDS: HEPARIN SODIUM,PORCINE 5,000 UNIT/ML 1 ML VIAL SQ SCH ×2 (09:33→21:01)
--- NOTE | 2018-05-11 11:51 | P.PN ---
Subjective Progress Note Date: 05/11/18 This is a 50-year-old white female patient that we saw in consultation yesterday. Patient was admitted to the hospital on O2 2018 for complaints of shortness of breath. Patient does have a chronic tracheostomy in place for multiple episodes of respiratory failure, this was done in January 2018 at [facility]. Patient lives in [place], and she was taken to the [facility] by EMS on O2 2018. She denied any recent fever , chills or cough. Chest x-ray at the [facility] showed the possibility of pneumonia. Chest x-ray was completed at this facility on 2018 and showed hyperinflated lungs with flattening of diaphragms suggesting COPD questionable subtle airspace opacities within the lower lungs. White blood cell count was 6.3, hemoglobin is 12.7, electrolytes were unremarkable, with the exception of CO2 which was elevated 33 suggesting chronic hypercapnic respiratory failure, B1 was a creatinine 0.35, urinalysis was negative for infection, influenza screen was negative. Patient was on trach collar, however last night patient started experiencing worsening shortness of breath, currently her inner cannula came out of the tracheostomy, and patient was severely hypoxemic, with O2 sat of around 48%. She was brought to the intensive care unit, in view of severe respiratory distress, and abnormal blood gases laced on the ventilator support. Initial blood gas this morning showed pO2 of 288, pCO2 of 100, and pH of 7.14, this was done and FiO2 100%. Patient was placed on mom assist-control mode of ventilation with a rate of 30, tidal vital 325, FiO2 50% and PEEP of 5. This morning were seeing the patient in the intensive care unit, she remains on assist control mode of ventilation, she is calm and comfortable, she is awake, in no acute distress, lung sounds are quite diminished, no significant rhonchi or wheezes. His chest x-ray has been reviewed with Dr. Gil, and showed trace bilateral pleural effusions, hyperinflated lungs. Vital signs are stable, with the exception of mild tachycardia, with a rate between 108-120 BPM, blood pressure is 80-100 systolic , and the diastolic blood pressure between 60-80 BPM. Patient is slightly oliguric, with a urine output between 5-15 mL. IV fluids were increased to 0.9 normal saline at a rate of 75 ML per hour, Diprivan and is currently at 50 mics per kilo per minute. Today's blood work shows some white blood cell count increased to 34.6, electrolytes were within normal limits, B1 of 17 and creatinine was 0.46. Urinalysis was negative for infection. Patient is on IV steroids, empiric antiemetics in the form of Levaquin, and nebulized bronchodilators. On today's evaluation of 05/06/2018, I'm seeing this patient for a follow-up. She is awake and she's off Diprivan this morning. She is receiving Ativan for anxiety pH remains on a mechanical ventilator. Her blood gases earlier this morning showed a component of respiratory alkalosis with a pH of 7.53 with a pCO2 of 36 and pO2 of 151. His was done by the patient's respiratory rate was at 30 with tidal volume of 3 on 25 and FiO2 of 40% and PEEP of 5. Based on this , I dropped a respiratory rate down to 20. She is doing well. She is awake and alert. She was given a short trial of pressure support mode of ventilation with a pressure support of 5 and PEEP of 5 and she was able to tolerate it for a total of 30 minutes. The tracheostomy tube catheter that she has does not have any parts available in our institution. I talked with respiratory and we are thinking of replacing it with a conventional Shiley tracheostomy tube with a later stage. The patient is still nothing by mouth. She does not have any tach 2. I've decided to proceed with a Dobbhoff tube insertion for enteral feeding and nutritional support. This will be also needed for medication. The patient is still having some sinus tachycardia. Her heart rate is ranging between 110 and 130 and is sinus. She is on IV fluids. She is receiving 0.9 normal saline at the rate of 75 mL an hour. She has an adequate urine output. She is afebrile. Her chest x-ray showing hyperinflation without evidence of any acute pneumonia or pulmonary infiltrates. She is quite anxious. She is able to communicate easily. The blood work is been all negative and within normal limits. Potassium is to be replaced. Phosphorus is to be replaced. Influenza screen was negative. Note that her COPD is advanced and the patient has had previous bouts of prolonged ventilator Failure requiring a long-term tracheostomy tube insertion. On today's evaluation of 05/07/2018 I'm seeing this patient for a follow-up. The patient is off Diprivan. The patient is awake and alert. She is less anxious compared to yesterday. Earlier this morning shows placed on a pressure support mode of ventilation. She was placed upper support of 5 and a PEEP of 5. Acid sequently put on a pressure support of 10 and eliminated the PEEP. She did well with this setting pulling tidal volumes above 300. Note that yesterday, I replaced this patient's tracheostomy tube. I put put in a #6 Shiley tracheostomy tube in nonfenestrated. I also inserted a Dobbhoff catheter in this patient. Both of this disease went fine without any major difficulties. The patient is currently receiving tube feeds in the form of vitamin 1.2 at the rate of 10 mL an hour and this will be gradually advanced to goal. She seems to be calm and comfortable. She seems to be doing well. She is awake. She is interactive. She denies having any pain. No synovitis or secretions. Chest x-ray shows COPD and hyperinflation and there are no other acute abnormalities noted. She remains on DuoNeb nebulized treatments around the clock, she remains on IV Solu-Medrol, once the Doppler was inserted, the patient was started on Cardizem 30 mg by mouth 4 times a day and her heart rate is under much better control. She remains in some mild Sinus tachycardia. She is on IV Protonix. She is doing also IV Levaquin. On 05/08/2018, the patient is awake and alert. We have her in a sitting up position in the bed. I have been a pressure support mode of ventilation at the pressure of 10. Doing well. Very anxious. She is requiring the Xanax around the clock and the Xanax dose has to be increased to control her anxiety levels. She is tolerating her tube feeds via Dobbhoff. She has a #[address] She is tolerating her tube feeds. No nausea. No vomiting. No chest pain. She is awake and alert and interactive. Her sinus tachycardia is improved. She remains on examination bronchodilators and steroids. Overnight, the patient was placed on VC plus mode with a tidal volume of 325 and a PEEP of 5 with an FiO2 of 40% and a PEEP of 5 and a rate of 20. This is her baseline respiratory rate in the volume cycle. No other significant events overnight. On today's evaluation of 05/09/2018, the patient is doing good progress. She is awake and alert. She is less anxious. I increased her Xanax up to 1 mg 4 times a day and she doing better with this regimen. She is much more comfortable. She is tolerating her tube feeds. She on same vent setting for today with IVC plus mode with a tidal volume of 325 and at 8 rate of 20 with an FiO2 of 40% with a PEEP of 5. The blood gases from today showed a pH of 7.54 with a pCO2 of 51 and pO2 of 118. She has developed some mild metabolic alkalosis. Her serum bicarb is up to 39. Chest x-ray shows no acute abnormalities. She is doing better. Rapid shallow breathing index is 86. The patient will be given a longer pressure support mode of ventilation today and I' m going to extend her probably for couple of hours, as yesterday she was able to do it only for 2 hours. She is able to communicate fairly well. No sinus tachycardia. She remains on bronchodilators. She remains on systemic steroids. No other significant events overnight otherwise for now. 05/10/2018 I'm seeing this patient for a follow-up. The patient is being mechanically ventilated with an assist-control mode of ventilation him a volume cycled with essentially the same rate. 4 yesterday, the patient tolerated a follow-up pressure support mode of ventilation the morning and another 2 hours in the afternoon. Not anxious this morning. She has a hypokalemia and hypomagnesemia and both are being replaced. We checked a set of weaning parameters this morning and the patient rapid shallow breathing index was 80 and what she on now on a pressure support mode of ventilation. Her chest x-ray findings are stable. She is on bronchodilators. IV Solu Medrol will be weaned off. She is tolerating her tube feeds. She is weak. She is awake and alert. No other significant events overnight. No fever or chills. No altered mentation. Note that the patient had shown a component of metabolic alkalosis on yesterday's blood gas. Based on that, the patient was given 2 doses of Diamox 250 mg IV push. Her morning blood gases showed improvement and acid base status. The patient is at 7.41 with a pCO2 of 56 and pO2 of 132 and this was done on a tidal volume of 325 with a respiratory rate of 20 and FiO2 of 40% and a PEEP of 5. On 05/11/2018 I'm seeing this patient for a follow-up. The patient was able to trach collar yesterday without the support of the mechanical ventilator for several hours. The same is being done today. She was able to close the stoma and speak full sentences on few occasions. Overall she is doing well. She is tolerating her tube feeds through the Dobbhoff. She is on bronchodilators. She is on systemic steroids and this was weaned off yesterday and her blood gases from today showed a pH of 7.41 with a pCO2 of 56 and pO2 131 and this was done on assist control mode of ventilation. Anxiety levels are low. I have introduced the idea of taking this patient to select specialty. This is something that she would benefit from in the future. There are presented will be talking to the patient today. Meanwhile, we'll do hours daily physical therapy. We'll set up on a chair. She is currently on trach collar with 35% FiO2. Objective - Vital Signs Vital signs: Vital Signs Temp 98.0 F 05/11/18 08:00 Pulse 100 05/11/18 11:45 Resp 24 05/11/18 11:45 BP 124/78 05/11/18 11:00 Pulse Ox 96 05/11/18 11:20 Intake & Output 05/10/18 05/11/18 05/11/18 18:59 06:59 18:59 Intake Total 860 1170 460 Output Total 3050 925 770 Balance -2190 245 -310 Weight 59.1 kg 59.1 kg Intake: IV 700 560 150 Magnesium Sulfate-D5w Pmx 100 1 gm In Dextrose/Water 1 100ml.bag @ 100 mls/hr IVPB Q1H [facility] Rx#: [id number] Magnesium Sulfate-D5w Pmx 100 1 gm In Dextrose/Water 1 100ml.bag @ 100 mls/hr IVPB Q1H [facility] Rx#: [id number] Potassium Chloride 10 meq 600 100 In Water For Injection 1 100ml.bag @ 100 mls/hr IVPB Q1HR [facility] Rx#: [id number] Potassium Phosphate 10 250 mmol In Sodium Chloride 0 .9% 250 ml @ 125 mls/hr IV ONCE ONE Rx#:[id number] Sodium Chloride 0.9% 1, 100 110 50 000 ml @ 10 mls/hr IV . Q24H [facility] Rx#:[id number] Tube Feeding 160 520 200 Other 90 110 Output: Urine 3050 925 770 Other: Voiding Method Indwelling Catheter Indwelling Catheter Indwelling Catheter - Exam GENERAL EXAM: Alert, pleasant, 50-year-old white female, currently on 35% trach collar HEAD: Normocephalic/atraumatic. EYES: Normal reaction of pupils, equal size. Conjunctiva pink, sclera white. NOSE: Clear with pink turbinates. THROAT: No erythema or exudates. NECK: No masses, no JVD, no thyroid enlargement, no adenopathy. CHEST: No chest wall deformity. Symmetrical expansion. LUNGS: Equal air entry with diminished breath sounds bilaterally CVS: Regular rate and rhythm, normal S1 and S2, no gallops, no murmurs, no rubs ABDOMEN: Soft, nontender. No hepatosplenomegaly, normal bowel sounds, no guarding or rigidity. EXTREMITIES: No clubbing, no edema, no cyanosis, 2+ pulses and upper and lower extremities. MUSCULOSKELETAL: Muscle strength and tone normal. SPINE: No scoliosis or deformity SKIN: No rashes CENTRAL NERVOUS SYSTEM: Alert and oriented -3. No focal deficits, tone is normal in all 4 extremities. PSYCHIATRIC: Alert and oriented -3. Appropriate affect. Intact judgment and insight. - Labs CBC & Chem 7: 05/11/18 04:45 05/11/18 04:40 Labs: Abnormal Lab Results - Last 24 Hours (Table) 05/10/18 05/10/18 05/10/18 Range/Units 12:40 17:44 19:07 WBC (3.8-10.6) k/uL Neutrophils # (1.3-7.7) k/uL Lymphocytes # (1.0-4.8) k/uL ABG pCO2 (35-45) mmHg ABG pO2 (83-108) mmHg ABG HCO3 (21-25) mmol/L ABG Total CO2 (19-24) mmol/L ABG O2 Saturation (94-97) % Carbon Dioxide 35 H (22-30) mmol/L BUN (7-17) mg/dL Creatinine (0.52-1.04) mg/dL Glucose (74-99) mg/dL POC Glucose (mg/dL) 159 H 122 H (75-99) mg/dL Phosphorus (2.5-4.5) mg/dL 05/10/18 05/11/18 05/11/18 Range/Units 23:54 04:40 04:45 WBC 15.5 H (3.8-10.6) k/uL Neutrophils # 14.4 H (1.3-7.7) k/uL Lymphocytes # 0.4 L (1.0-4.8) k/uL ABG pCO2 (35-45) mmHg ABG pO2 (83-108) mmHg ABG HCO3 (21-25) mmol/L ABG Total CO2 (19-24) mmol/L ABG O2 Saturation (94-97) % Carbon Dioxide 33 H (22-30) mmol/L BUN 25 H (7-17) mg/dL Creatinine 0.42 L (0.52-1.04) mg/dL Glucose 139 H (74-99) mg/dL POC Glucose (mg/dL) 123 H (75-99) mg/dL Phosphorus 2.3 L (2.5-4.5) mg/dL 05/11/18 05/11/18 Range/Units 05:20 06:07 WBC (3.8-10.6) k/uL Neutrophils # (1.3-7.7) k/uL Lymphocytes # (1.0-4.8) k/uL ABG pCO2 56 H (35-45) mmHg ABG pO2 131 H (83-108) mmHg ABG HCO3 35 H (21-25) mmol/L ABG Total CO2 37 H (19-24) mmol/L ABG O2 Saturation 99.0 H (94-97) % Carbon Dioxide (22-30) mmol/L BUN (7-17) mg/dL Creatinine (0.52-1.04) mg/dL Glucose (74-99) mg/dL POC Glucose (mg/dL) 143 H (75-99) mg/dL Phosphorus (2.5-4.5) mg/dL Assessment and Plan Plan: Assessment 1 acute on chronic hypercapnic respiratory failure secondary to COPD exacerbation. The patient has severe advanced COPD. patient is weaning slowly. Yesterday she tolerated several hours of trach collar. The same is being done today and we'll gradually prolong her spontaneous breathing on a daily basis. She is very comfortable on the 35% trach collar. No significant orotracheal secretions. No significant anxiety. 2 chronic hypercapnic and hypoxic respiratory failure due to advanced COPD, on today's blood gas the patient showed some metabolic alkalosis probably related to bicarb retention. 3 history of permanent tracheostomy tube placement 4 fibromyalgia 5 chronic anxiety 6 chronic osteoporosis 7 previous history of smoking 8 electrode imbalance with hypokalemia and hypophosphatemia, replaced 9 sinus tachycardia, improved Plan Today same treatment. Trach collar today. Not a candidate for a speaking valve yet. Continue enteral feeding for nutritional support. Continue bronchodilators. Continue IV Solu Medrol. Made to go to select specialty for further rehabilitation and strengthening. She has advanced COPD. She has chronic hypoxic and hypercapnic respiratory failure. Her poor status is borderline. Her ABGs from today shows a compensated acid-base status with a pH of 7.4 with a pCO2 of 56. She is awake and alert pH is following commands and answering questions. We'll continue to follow.
[2018-05-11 12:23] LABS: Glucose,Whole Blood 139 mg/dL (75-99)
[2018-05-11] MEDS: traMADol 50 MG TAB PO PRN (16:42)
[2018-05-11 18:29] LABS: Glucose,Whole Blood 135 mg/dL (75-99)
[2018-05-11 18:30] LABS: Glucose,Whole Blood 135 mg/dL (75-99)
[2018-05-11] MEDS: SODIUM CHLORIDE 0.9% 1,000 ML IV SCH (18:30)
--- NOTE | 2018-05-11 18:47 | P.PN ---
Subjective This is a pleasant 68 years old female with past medical history of COPD, fibromyalgia, hyperlipidemia, osteoporosis. Patient was admitted for COPD acute exacerbation. Patient have been in the ICU for more than a week. Eventually she got trach collar yesterday. And she is able to move out of bed to chair with trach collar and FiO2 35%. She started to proceeding. And she is being followed closely by the pulmonary/critical care team Objective - Vital Signs Vital signs: Vital Signs Temp 98.3 F 05/11/18 16:00 Pulse 101 H 05/11/18 18:00 Resp 20 05/11/18 18:00 BP 142/88 05/11/18 18:00 Pulse Ox 94 L 05/11/18 18:00 Intake & Output 05/10/18 05/11/18 05/11/18 18:59 06:59 18:59 Intake Total 860 1170 1070 Output Total 3050 925 1720 Balance -2190 245 -650 Weight 59.1 kg 59.1 kg Intake: IV 700 560 220 Magnesium Sulfate-D5w Pmx 100 1 gm In Dextrose/Water 1 100ml.bag @ 100 mls/hr IVPB Q1H [facility] Rx#: [id number] Magnesium Sulfate-D5w Pmx 100 1 gm In Dextrose/Water 1 100ml.bag @ 100 mls/hr IVPB Q1H [facility] Rx#: [id number] Potassium Chloride 10 meq 600 100 In Water For Injection 1 100ml.bag @ 100 mls/hr IVPB Q1HR [facility] Rx#: [id number] Potassium Phosphate 10 250 mmol In Sodium Chloride 0 .9% 250 ml @ 125 mls/hr IV ONCE ONE Rx#:[id number] Sodium Chloride 0.9% 1, 100 110 120 000 ml @ 10 mls/hr IV . Q24H [facility] Rx#:[id number] Tube Feeding 160 520 560 Other 90 290 Output: Urine 3050 925 1720 Other: Voiding Method Indwelling Catheter Indwelling Catheter Indwelling Catheter - Exam -GENERAL: The patient is alert and oriented x3, not in any acute distress. She is on trach collar, HEENT: Pupils are round and equally reacting to light. EOMI. No scleral icterus. No conjunctival pallor. Normocephalic, atraumatic. No pharyngeal erythema. No thyromegaly. CARDIOVASCULAR: S1 and S2 present. No murmurs, rubs, or gallops. PULMONARY: Chest is clear to auscultation, no wheezing or crackles. ABDOMEN: Soft, nontender, nondistended, normoactive bowel sounds. No palpable organomegaly. MUSCULOSKELETAL: No joint swelling or deformity. EXTREMITIES: No cyanosis, clubbing, or pedal edema. NEUROLOGICAL: Gross neurological examination did not reveal any focal deficits. SKIN: No rashes. - Labs CBC & Chem 7: 05/11/18 04:45 05/11/18 04:40 Labs: Abnormal Lab Results - Last 24 Hours (Table) 05/10/18 05/10/18 05/11/18 Range/Units 19:07 23:54 04:40 WBC (3.8-10.6) k/uL Neutrophils # (1.3-7.7) k/uL Lymphocytes # (1.0-4.8) k/uL ABG pCO2 (35-45) mmHg ABG pO2 (83-108) mmHg ABG HCO3 (21-25) mmol/L ABG Total CO2 (19-24) mmol/L ABG O2 Saturation (94-97) % Carbon Dioxide 35 H 33 H (22-30) mmol/L BUN 25 H (7-17) mg/dL Creatinine 0.42 L (0.52-1.04) mg/dL Glucose 139 H (74-99) mg/dL POC Glucose (mg/dL) 123 H (75-99) mg/dL Phosphorus 2.3 L (2.5-4.5) mg/dL 05/11/18 05/11/18 05/11/18 Range/Units 04:45 05:20 06:07 WBC 15.5 H (3.8-10.6) k/uL Neutrophils # 14.4 H (1.3-7.7) k/uL Lymphocytes # 0.4 L (1.0-4.8) k/uL ABG pCO2 56 H (35-45) mmHg ABG pO2 131 H (83-108) mmHg ABG HCO3 35 H (21-25) mmol/L ABG Total CO2 37 H (19-24) mmol/L ABG O2 Saturation 99.0 H (94-97) % Carbon Dioxide (22-30) mmol/L BUN (7-17) mg/dL Creatinine (0.52-1.04) mg/dL Glucose (74-99) mg/dL POC Glucose (mg/dL) 143 H (75-99) mg/dL Phosphorus (2.5-4.5) mg/dL 05/11/18 05/11/18 05/11/18 Range/Units 12:20 18:16 18:16 WBC (3.8-10.6) k/uL Neutrophils # (1.3-7.7) k/uL Lymphocytes # (1.0-4.8) k/uL ABG pCO2 (35-45) mmHg ABG pO2 (83-108) mmHg ABG HCO3 (21-25) mmol/L ABG Total CO2 (19-24) mmol/L ABG O2 Saturation (94-97) % Carbon Dioxide (22-30) mmol/L BUN (7-17) mg/dL Creatinine (0.52-1.04) mg/dL Glucose (74-99) mg/dL POC Glucose (mg/dL) 139 H 135 H 135 H (75-99) mg/dL Phosphorus (2.5-4.5) mg/dL 05/11/18 Range/Units 18:16 WBC (3.8-10.6) k/uL Neutrophils # (1.3-7.7) k/uL Lymphocytes # (1.0-4.8) k/uL ABG pCO2 (35-45) mmHg ABG pO2 (83-108) mmHg ABG HCO3 (21-25) mmol/L ABG Total CO2 (19-24) mmol/L ABG O2 Saturation (94-97) % Carbon Dioxide (22-30) mmol/L BUN (7-17) mg/dL Creatinine (0.52-1.04) mg/dL Glucose (74-99) mg/dL POC Glucose (mg/dL) 135 H (75-99) mg/dL Phosphorus (2.5-4.5) mg/dL Assessment and Plan Assessment: Chronic obstructive pulmonary disease with acute exacerbation and acute right lower lobe pneumonia possibly gram-negative with acute hypoxic respiratory failure needing ventilatory support Recent tracheostomy and PEG tube Hypokalemia Hypomagnesemia History of fibromyalgia History of anxiety Osteoporosis History of MRSA History of cholecystectomy Plan: This is a pleasant 58 years old female who presents with acute COPD exacerbation. Continue with tapering steroids. Patient got trach collar and she is tolerating the oxygenation with FiO2 of 35%. Out of bed to chair.Labs and medication were reviewed.. Continue same treatment. Continue with symptomatic treatment. Resume home medication. Monitor lytes and vitals. DVT and GI prophylaxis. Further recommendations of the clinical course of the patient DVT prophylaxis: Subcutaneous heparin GI Prophylaxis: PPI Prognosis is guarded
[2018-05-11] MEDS: PANTOPRAZOLE 40 MG/10 ML VIAL IVP SCH (21:01)
[2018-05-11] MEDS: PRAVASTATIN SODIUM 20 MG TAB PO SCH (21:24)
[2018-05-11 23:47] LABS: Glucose,Whole Blood 125 mg/dL (75-99)
[2018-05-12] MEDS: IPRATROPIUM-ALBUTEROL 3 ML NEB INHALATION SCH ×7 (00:12→23:17)
[2018-05-12 04:54] LABS: HCT 36.2 % (34.0-46.0); HGB 11.6 gm/dL (11.4-16.0); MCH 29.2 pg (25.0-35.0); MCV 91.1 fL (80.0-100.0); Platelet Count 392 k/uL (150-450); RBC 3.97 m/uL (3.80-5.40); RDW 14.8 % (11.5-15.5); WBC 13.3 k/uL (3.8-10.6)
[2018-05-12 05:10] LABS: Anion Gap 3 mmol/L; Blood Urea Nitrogen 29 mg/dL (7-17); Calcium 9.2 mg/dL (8.4-10.2); Chloride 97 mmol/L (98-107); Glucose 152 mg/dL (74-99); Magnesium 1.7 mg/dL (1.6-2.3); Phosphorus 2.9 mg/dL (2.5-4.5); Potassium 3.9 mmol/L (3.5-5.1); Sodium 140 mmol/L (137-145)
[2018-05-12 05:24] LABS: Carbon Dioxide 40 mmol/L (22-30)
[2018-05-12 05:30] LABS: Band Neutrophils % 4 %; Lymphocytes # (M) 0.53 k/uL (1.0-4.8); Metamyelocytes # (M) 0.53 k/uL (0); Metamyelocytes % 4 %; Neutrophils % (M) 85 %; Nucleated Red Blood Cells 0 /100 WBC (0-0); Total Cells Counted 100
[2018-05-12 05:32] LABS: Glucose,Whole Blood 153 mg/dL (75-99)
[2018-05-12] MEDS: INSULIN ASPART (NovoLOG) 100 UNIT/ML VIAL SQ SCH ×4 (05:39→21:07)
[2018-05-12] MEDS: HYDROcodone/APAP 5-325MG 1 EACH TAB PO PRN ×2 (05:41→15:00)
[2018-05-12] MEDS ORDERED: POTASSIUM BICARBONATE/CIT AC 20 MEQ TABLET.EFF PO ONE (06:23)
[2018-05-12] MEDS: MAGNESIUM SULFATE-D5W PMX 1 GM in DEXTROSE/WATER 1 100ML.BAG IVPB SCH ×2 (07:08→08:33)
[2018-05-12] MEDS: FORMOTEROL FUMARATE 20 MCG/2 ML NEBU INHALATION SCH ×2 (07:35→19:22)
[2018-05-12] MEDS: BUDESONIDE 1 MG/2 ML NEBU INHALATION SCH ×2 (07:36→19:22)
[2018-05-12] MEDS: CHLORHEXIDINE GLUCONATE 15 ML CUP MUCOUS MEM SCH ×2 (08:35→21:09)
[2018-05-12] MEDS: DILTIAZEM ORAL 30 MG TAB PO SCH ×4 (08:35→21:08)
[2018-05-12] MEDS: methylPREDNISolone SOD SUCCI 40 MG/ML 1 ML VIAL IV SCH (08:36)
[2018-05-12] MEDS: traMADol 50 MG TAB PO PRN ×2 (08:36→16:51)
[2018-05-12] MEDS: HEPARIN SODIUM,PORCINE 5,000 UNIT/ML 1 ML VIAL SQ SCH ×2 (08:36→21:08)
[2018-05-12] MEDS: ALPRAZolam 1 MG TAB PO PRN ×3 (08:36→21:04)
[2018-05-12] MEDS: HYDROmorphone 0.5 MG/0.5 ML SYRINGE IVP PRN ×2 (11:12→21:03)
[2018-05-12 12:10] LABS: Glucose,Whole Blood 155 mg/dL (75-99)
--- NOTE | 2018-05-12 16:06 | P.PN ---
Subjective This is a pleasant 68 years old female with past medical history of COPD, fibromyalgia, hyperlipidemia, osteoporosis. Patient was admitted for COPD acute exacerbation. Patient have been in the ICU for more than a week. Eventually she got trach collar yesterday. And she is able to move out of bed to chair with trach collar and FiO2 35%. She started to proceeding. And she is being followed closely by the pulmonary/critical care team 05/12/2018 Patient remains on trach collar with a flow at 8 L/m off oxygen. She is not dyspneic and no wheezing on examination. She is limited dyspneic but no chest pain and no significant cough. Feeding tube has been taking off and patient couldn't eat today but tachycardic today. She has mild leukocytosis of 13.3 K. BMP was unremarkable with creatinine 0.45, sugar is controlled. Sputum showing diphtheroid species. We started the patient on doxycycline. Objective - Vital Signs Vital signs: Vital Signs Temp 98.2 F 05/12/18 12:00 Pulse 112 H 05/12/18 15:31 Resp 24 05/12/18 15:00 BP 154/106 05/12/18 15:00 Pulse Ox 93 L 05/12/18 15:00 Intake & Output 05/11/18 05/12/18 05/12/18 18:59 06:59 18:59 Intake Total 9621 414 8406 Output Total 1720 705 775 Balance -650 135 465 Weight 58 kg Intake: IV 220 120 280 Magnesium Sulfate-D5w Pmx 100 100 1 gm In Dextrose/Water 1 100ml.bag @ 100 mls/hr IVPB Q1H [facility] Rx#: [id number] Magnesium Sulfate-D5w Pmx 100 1 gm In Dextrose/Water 1 100ml.bag @ 100 mls/hr IVPB Q1H [facility] Rx#: [id number] Sodium Chloride 0.9% 1, 120 120 80 000 ml @ 10 mls/hr IV . Q24H WIN[facility] Rx#:[id number] Oral 600 Tube Feeding 560 600 240 Other 290 120 120 Output: Urine 1720 705 775 Other: Voiding Method Indwelling Catheter Indwelling Catheter Indwelling Catheter - Exam -GENERAL: The patient is alert and oriented x3, not in any acute distress. She is on trach collar, HEENT: Pupils are round and equally reacting to light. EOMI. No scleral icterus. No conjunctival pallor. Normocephalic, atraumatic. No pharyngeal erythema. No thyromegaly. CARDIOVASCULAR: S1 and S2 present. No murmurs, rubs, or gallops. PULMONARY: Chest is clear to auscultation, no wheezing or crackles. ABDOMEN: Soft, nontender, nondistended, normoactive bowel sounds. No palpable organomegaly. MUSCULOSKELETAL: No joint swelling or deformity. EXTREMITIES: No cyanosis, clubbing, or pedal edema. NEUROLOGICAL: Gross neurological examination did not reveal any focal deficits. SKIN: No rashes. - Labs CBC & Chem 7: 05/12/18 04:35 05/12/18 04:35 Labs: Abnormal Lab Results - Last 24 Hours (Table) 05/11/18 05/11/18 05/11/18 Range/Units 18:16 18:16 18:16 WBC (3.8-10.6) k/uL Neutrophils # (Manual) (1.3-7.7) k/uL Lymphocytes # (Manual) (1.0-4.8) k/uL Metamyelocytes # (Man) (0) k/uL Chloride (98-107) mmol/L Carbon Dioxide (22-30) mmol/L BUN (7-17) mg/dL Creatinine (0.52-1.04) mg/dL Glucose (74-99) mg/dL POC Glucose (mg/dL) 135 H 135 H 135 H (75-99) mg/dL 05/11/18 05/12/18 05/12/18 Range/Units 23:43 04:35 04:35 WBC 13.3 H (3.8-10.6) k/uL Neutrophils # (Manual) 11.80 H (1.3-7.7) k/uL Lymphocytes # (Manual) 0.53 L (1.0-4.8) k/uL Metamyelocytes # (Man) 0.53 H (0) k/uL Chloride 97 L (98-107) mmol/L Carbon Dioxide 40 H (22-30) mmol/L BUN 29 H (7-17) mg/dL Creatinine 0.45 L (0.52-1.04) mg/dL Glucose 152 H (74-99) mg/dL POC Glucose (mg/dL) 125 H (75-99) mg/dL 05/12/18 05/12/18 Range/Units 05:29 11:42 WBC (3.8-10.6) k/uL Neutrophils # (Manual) (1.3-7.7) k/uL Lymphocytes # (Manual) (1.0-4.8) k/uL Metamyelocytes # (Man) (0) k/uL Chloride (98-107) mmol/L Carbon Dioxide (22-30) mmol/L BUN (7-17) mg/dL Creatinine (0.52-1.04) mg/dL Glucose (74-99) mg/dL POC Glucose (mg/dL) 153 H 155 H (75-99) mg/dL Assessment and Plan Assessment: Chronic obstructive pulmonary disease with acute exacerbation and acute right lower lobe pneumonia possibly gram-negative with acute hypoxic respiratory failure needing ventilatory support Recent tracheostomy Diphtheroids and sputum culture with leukocytosis agnesemia History of fibromyalgia History of anxiety Osteoporosis History of MRSA History of cholecystectomy Plan: This is a pleasant 58 years old female who presents with acute COPD exacerbation. C continue with antibiotics. ontinue with tapering steroids. Patient got trach collar and she is tolerating the oxygenation with FiO2 of 35% . Out of bed to chair.Labs and medication were reviewed.. Continue same treatment. Continue with symptomatic treatment. Resume home medication. Monitor lytes and vitals. DVT and GI prophylaxis. Further recommendations of the clinical course of the patient DVT prophylaxis: Subcutaneous heparin GI Prophylaxis: PPI Prognosis is guarded
--- NOTE | 2018-05-12 16:50 | P.PN ---
Subjective Progress Note Date: 05/12/18 This is a 50-year-old white female patient that we saw in consultation yesterday. Patient was admitted to the hospital on O2 2018 for complaints of shortness of breath. Patient does have a chronic tracheostomy in place for multiple episodes of respiratory failure, this was done in January 2018 at [facility]. Patient lives in [place], and she was taken to the [facility] by EMS on O2 2018. She denied any recent fever , chills or cough. Chest x-ray at the [facility] showed the possibility of pneumonia. Chest x-ray was completed at this facility on 2018 and showed hyperinflated lungs with flattening of diaphragms suggesting COPD questionable subtle airspace opacities within the lower lungs. White blood cell count was 6.3, hemoglobin is 12.7, electrolytes were unremarkable, with the exception of CO2 which was elevated 33 suggesting chronic hypercapnic respiratory failure, B1 was a creatinine 0.35, urinalysis was negative for infection, influenza screen was negative. Patient was on trach collar, however last night patient started experiencing worsening shortness of breath, currently her inner cannula came out of the tracheostomy, and patient was severely hypoxemic, with O2 sat of around 48%. She was brought to the intensive care unit, in view of severe respiratory distress, and abnormal blood gases laced on the ventilator support. Initial blood gas this morning showed pO2 of 288, pCO2 of 100, and pH of 7.14, this was done and FiO2 100%. Patient was placed on mom assist-control mode of ventilation with a rate of 30, tidal vital 325, FiO2 50% and PEEP of 5. This morning were seeing the patient in the intensive care unit, she remains on assist control mode of ventilation, she is calm and comfortable, she is awake, in no acute distress, lung sounds are quite diminished, no significant rhonchi or wheezes. His chest x-ray has been reviewed with Dr. Gil, and showed trace bilateral pleural effusions, hyperinflated lungs. Vital signs are stable, with the exception of mild tachycardia, with a rate between 108-120 BPM, blood pressure is 80-100 systolic , and the diastolic blood pressure between 60-80 BPM. Patient is slightly oliguric, with a urine output between 5-15 mL. IV fluids were increased to 0.9 normal saline at a rate of 75 ML per hour, Diprivan and is currently at 50 mics per kilo per minute. Today's blood work shows some white blood cell count increased to 34.6, electrolytes were within normal limits, B1 of 17 and creatinine was 0.46. Urinalysis was negative for infection. Patient is on IV steroids, empiric antiemetics in the form of Levaquin, and nebulized bronchodilators. On today's evaluation of 05/06/2018, I'm seeing this patient for a follow-up. She is awake and she's off Diprivan this morning. She is receiving Ativan for anxiety pH remains on a mechanical ventilator. Her blood gases earlier this morning showed a component of respiratory alkalosis with a pH of 7.53 with a pCO2 of 36 and pO2 of 151. His was done by the patient's respiratory rate was at 30 with tidal volume of 3 on 25 and FiO2 of 40% and PEEP of 5. Based on this , I dropped a respiratory rate down to 20. She is doing well. She is awake and alert. She was given a short trial of pressure support mode of ventilation with a pressure support of 5 and PEEP of 5 and she was able to tolerate it for a total of 30 minutes. The tracheostomy tube catheter that she has does not have any parts available in our institution. I talked with respiratory and we are thinking of replacing it with a conventional Shiley tracheostomy tube with a later stage. The patient is still nothing by mouth. She does not have any tach 2. I've decided to proceed with a Dobbhoff tube insertion for enteral feeding and nutritional support. This will be also needed for medication. The patient is still having some sinus tachycardia. Her heart rate is ranging between 110 and 130 and is sinus. She is on IV fluids. She is receiving 0.9 normal saline at the rate of 75 mL an hour. She has an adequate urine output. She is afebrile. Her chest x-ray showing hyperinflation without evidence of any acute pneumonia or pulmonary infiltrates. She is quite anxious. She is able to communicate easily. The blood work is been all negative and within normal limits. Potassium is to be replaced. Phosphorus is to be replaced. Influenza screen was negative. Note that her COPD is advanced and the patient has had previous bouts of prolonged ventilator Failure requiring a long-term tracheostomy tube insertion. On today's evaluation of 05/07/2018 I'm seeing this patient for a follow-up. The patient is off Diprivan. The patient is awake and alert. She is less anxious compared to yesterday. Earlier this morning shows placed on a pressure support mode of ventilation. She was placed upper support of 5 and a PEEP of 5. Acid sequently put on a pressure support of 10 and eliminated the PEEP. She did well with this setting pulling tidal volumes above 300. Note that yesterday, I replaced this patient's tracheostomy tube. I put put in a #6 Shiley tracheostomy tube in nonfenestrated. I also inserted a Dobbhoff catheter in this patient. Both of this disease went fine without any major difficulties. The patient is currently receiving tube feeds in the form of vitamin 1.2 at the rate of 10 mL an hour and this will be gradually advanced to goal. She seems to be calm and comfortable. She seems to be doing well. She is awake. She is interactive. She denies having any pain. No synovitis or secretions. Chest x-ray shows COPD and hyperinflation and there are no other acute abnormalities noted. She remains on DuoNeb nebulized treatments around the clock, she remains on IV Solu-Medrol, once the Doppler was inserted, the patient was started on Cardizem 30 mg by mouth 4 times a day and her heart rate is under much better control. She remains in some mild Sinus tachycardia. She is on IV Protonix. She is doing also IV Levaquin. On 05/08/2018, the patient is awake and alert. We have her in a sitting up position in the bed. I have been a pressure support mode of ventilation at the pressure of 10. Doing well. Very anxious. She is requiring the Xanax around the clock and the Xanax dose has to be increased to control her anxiety levels. She is tolerating her tube feeds via Dobbhoff. She has a #[address] She is tolerating her tube feeds. No nausea. No vomiting. No chest pain. She is awake and alert and interactive. Her sinus tachycardia is improved. She remains on examination bronchodilators and steroids. Overnight, the patient was placed on VC plus mode with a tidal volume of 325 and a PEEP of 5 with an FiO2 of 40% and a PEEP of 5 and a rate of 20. This is her baseline respiratory rate in the volume cycle. No other significant events overnight. On today's evaluation of 05/09/2018, the patient is doing good progress. She is awake and alert. She is less anxious. I increased her Xanax up to 1 mg 4 times a day and she doing better with this regimen. She is much more comfortable. She is tolerating her tube feeds. She on same vent setting for today with IVC plus mode with a tidal volume of 325 and at 8 rate of 20 with an FiO2 of 40% with a PEEP of 5. The blood gases from today showed a pH of 7.54 with a pCO2 of 51 and pO2 of 118. She has developed some mild metabolic alkalosis. Her serum bicarb is up to 39. Chest x-ray shows no acute abnormalities. She is doing better. Rapid shallow breathing index is 86. The patient will be given a longer pressure support mode of ventilation today and I' m going to extend her probably for couple of hours, as yesterday she was able to do it only for 2 hours. She is able to communicate fairly well. No sinus tachycardia. She remains on bronchodilators. She remains on systemic steroids. No other significant events overnight otherwise for now. 05/10/2018 I'm seeing this patient for a follow-up. The patient is being mechanically ventilated with an assist-control mode of ventilation him a volume cycled with essentially the same rate. 4 yesterday, the patient tolerated a follow-up pressure support mode of ventilation the morning and another 2 hours in the afternoon. Not anxious this morning. She has a hypokalemia and hypomagnesemia and both are being replaced. We checked a set of weaning parameters this morning and the patient rapid shallow breathing index was 80 and what she on now on a pressure support mode of ventilation. Her chest x-ray findings are stable. She is on bronchodilators. IV Solu Medrol will be weaned off. She is tolerating her tube feeds. She is weak. She is awake and alert. No other significant events overnight. No fever or chills. No altered mentation. Note that the patient had shown a component of metabolic alkalosis on yesterday's blood gas. Based on that, the patient was given 2 doses of Diamox 250 mg IV push. Her morning blood gases showed improvement and acid base status. The patient is at 7.41 with a pCO2 of 56 and pO2 of 132 and this was done on a tidal volume of 325 with a respiratory rate of 20 and FiO2 of 40% and a PEEP of 5. On 05/11/2018 I'm seeing this patient for a follow-up. The patient was able to trach collar yesterday without the support of the mechanical ventilator for several hours. The same is being done today. She was able to close the stoma and speak full sentences on few occasions. Overall she is doing well. She is tolerating her tube feeds through the Dobbhoff. She is on bronchodilators. She is on systemic steroids and this was weaned off yesterday and her blood gases from today showed a pH of 7.41 with a pCO2 of 56 and pO2 131 and this was done on assist control mode of ventilation. Anxiety levels are low. I have introduced the idea of taking this patient to select specialty. This is something that she would benefit from in the future. There are presented will be talking to the patient today. Meanwhile, we'll do hours daily physical therapy. We'll set up on a chair. She is currently on trach collar with 35% FiO2. On 05/12/2018, the patient is on a trach collar. She is calm and comfortable. No respiratory distress. Overnight she is using the mechanical ventilator. The Dobbhoff catheter will be removed and the patient be fed today. She is hemodynamically stable. She is calm and comfortable. Anxiety levels are low. She we'll be able to sit up on a chair today. No other significant events otherwise for now. She remains on bronchodilators, inhaled corticosteroids, Perforomist nebulized treatment twice a day and IV Solu Medrol 4 mg every 12 hours. The issue and is awake. She is afebrile. There are diphtheroids species in the sputum which is probably a colonizer. Blood cultures negative. Urine culture is negative. Objective - Vital Signs Vital signs: Vital Signs Temp 97.7 F 05/12/18 16:00 Pulse 98 05/12/18 16:00 Resp 20 05/12/18 16:00 BP 158/92 05/12/18 16:00 Pulse Ox 98 05/12/18 16:00 Intake & Output 05/11/18 05/12/18 05/12/18 18:59 06:59 18:59 Intake Total 7788 872 4435 Output Total 1720 705 855 Balance -650 135 395 Weight 58 kg Intake: IV 220 120 290 Magnesium Sulfate-D5w Pmx 100 100 1 gm In Dextrose/Water 1 100ml.bag @ 100 mls/hr IVPB Q1H [facility] Rx#: [id number] Magnesium Sulfate-D5w Pmx 100 1 gm In Dextrose/Water 1 100ml.bag @ 100 mls/hr IVPB Q1H [facility] Rx#: [id number] Sodium Chloride 0.9% 1, 120 120 90 000 ml @ 10 mls/hr IV . Q24H [facility]RED Rx#:[id number] Oral 600 Tube Feeding 560 600 240 Other 290 120 120 Output: Urine 1720 705 855 Other: Voiding Method Indwelling Catheter Indwelling Catheter Indwelling Catheter - Exam GENERAL EXAM: Alert, pleasant, 50-year-old white female, currently on 35% trach collar HEAD: Normocephalic/atraumatic. EYES: Normal reaction of pupils, equal size. Conjunctiva pink, sclera white. NOSE: Clear with pink turbinates. THROAT: No erythema or exudates. NECK: No masses, no JVD, no thyroid enlargement, no adenopathy. CHEST: No chest wall deformity. Symmetrical expansion. LUNGS: Equal air entry with diminished breath sounds bilaterally CVS: Regular rate and rhythm, normal S1 and S2, no gallops, no murmurs, no rubs ABDOMEN: Soft, nontender. No hepatosplenomegaly, normal bowel sounds, no guarding or rigidity. EXTREMITIES: No clubbing, no edema, no cyanosis, 2+ pulses and upper and lower extremities. MUSCULOSKELETAL: Muscle strength and tone normal. SPINE: No scoliosis or deformity SKIN: No rashes CENTRAL NERVOUS SYSTEM: Alert and oriented -3. No focal deficits, tone is normal in all 4 extremities. PSYCHIATRIC: Alert and oriented -3. Appropriate affect. Intact judgment and insight. - Labs CBC & Chem 7: 05/12/18 04:35 05/12/18 04:35 Labs: Abnormal Lab Results - Last 24 Hours (Table) 05/11/18 05/11/18 05/11/18 Range/Units 18:16 18:16 18:16 WBC (3.8-10.6) k/uL Neutrophils # (Manual) (1.3-7.7) k/uL Lymphocytes # (Manual) (1.0-4.8) k/uL Metamyelocytes # (Man) (0) k/uL Chloride (98-107) mmol/L Carbon Dioxide (22-30) mmol/L BUN (7-17) mg/dL Creatinine (0.52-1.04) mg/dL Glucose (74-99) mg/dL POC Glucose (mg/dL) 135 H 135 H 135 H (75-99) mg/dL 05/11/18 05/12/18 05/12/18 Range/Units 23:43 04:35 04:35 WBC 13.3 H (3.8-10.6) k/uL Neutrophils # (Manual) 11.80 H (1.3-7.7) k/uL Lymphocytes # (Manual) 0.53 L (1.0-4.8) k/uL Metamyelocytes # (Man) 0.53 H (0) k/uL Chloride 97 L (98-107) mmol/L Carbon Dioxide 40 H (22-30) mmol/L BUN 29 H (7-17) mg/dL Creatinine 0.45 L (0.52-1.04) mg/dL Glucose 152 H (74-99) mg/dL POC Glucose (mg/dL) 125 H (75-99) mg/dL 05/12/18 05/12/18 Range/Units 05:29 11:42 WBC (3.8-10.6) k/uL Neutrophils # (Manual) (1.3-7.7) k/uL Lymphocytes # (Manual) (1.0-4.8) k/uL Metamyelocytes # (Man) (0) k/uL Chloride (98-107) mmol/L Carbon Dioxide (22-30) mmol/L BUN (7-17) mg/dL Creatinine (0.52-1.04) mg/dL Glucose (74-99) mg/dL POC Glucose (mg/dL) 153 H 155 H (75-99) mg/dL Assessment and Plan Plan: Assessment 1 acute on chronic hypercapnic respiratory failure secondary to COPD exacerbation. Patient is gradually getting stronger. The patient is recovering from respiratory. He is currently she is on a trach collar oxygen. No signs of any significant respiratory distress. The Dobbhoff catheter will be removed and the patient will be provided some oral food. 2 chronic hypercapnic and hypoxic respiratory failure due to advanced COPD, 3 history of permanent tracheostomy tube placement 4 fibromyalgia 5 chronic anxiety 6 chronic osteoporosis 7 previous history of smoking 8 electrode imbalance with hypokalemia and hypophosphatemia, replaced 9 sinus tachycardia, improved Plan Continue same treatment. Keep the patient on trach collar. Physical therapy. Rest of the medication was reviewed. No other changes from my standpoint. I'm going to discontinue the IV Solu Medrol start the patient a prednisone burst taper. Consider still select specialty transfer or ECF transfer with the next 24-48 hours for further rehabilitation.
[2018-05-12 16:58] LABS: Glucose,Whole Blood 170 mg/dL (75-99)
[2018-05-12] MEDS: SODIUM CHLORIDE 0.9% 1,000 ML IV SCH (17:50)
[2018-05-12] MEDS: DOXYCYCLINE 100 MG CAP PO SCH ×2 (17:51→21:09)
[2018-05-12 20:35] LABS: Glucose,Whole Blood 131 mg/dL (75-99)
[2018-05-12] MEDS: PRAVASTATIN SODIUM 20 MG TAB PO SCH (21:09)
[2018-05-12] MEDS: PANTOPRAZOLE 40 MG/10 ML VIAL IVP SCH (21:09)
[2018-05-13] MEDS: IPRATROPIUM-ALBUTEROL 3 ML NEB INHALATION SCH ×6 (03:11→23:23)
[2018-05-13 05:59] LABS: HCT 37.1 % (34.0-46.0); HGB 11.6 gm/dL (11.4-16.0); MCH 29.4 pg (25.0-35.0); MCHC 31.4 g/dL (31.0-37.0); MCV 93.6 fL (80.0-100.0); Mean Platelet Volume 6.2; Platelet Count 364 k/uL (150-450); RBC 3.96 m/uL (3.80-5.40); RDW 15.1 % (11.5-15.5); WBC 14.9 k/uL (3.8-10.6)
[2018-05-13 06:12] LABS: Anion Gap 4 mmol/L; Blood Urea Nitrogen 43 mg/dL (7-17); Calcium 9.6 mg/dL (8.4-10.2); Chloride 93 mmol/L (98-107); Glucose 93 mg/dL (74-99); Magnesium 1.8 mg/dL (1.6-2.3); Potassium 4.1 mmol/L (3.5-5.1); Sodium 137 mmol/L (137-145)
[2018-05-13 06:32] LABS: Carbon Dioxide 40 mmol/L (22-30)
[2018-05-13 06:39] LABS: Lymphocytes # (M) 1.94 k/uL (1.0-4.8); Monocytes # (M) 1.04 k/uL (0-1.0); Myelocytes # (M) 0.45 k/uL (0); Myelocytes % 3 %; Neutrophils # (M) 11.47 k/uL (1.3-7.7); Neutrophils % (M) 77 %; Nucleated Red Blood Cells 0 /100 WBC (0-0); Total Cells Counted 200
[2018-05-13 07:01] LABS: Glucose,Whole Blood 88 mg/dL (75-99)
[2018-05-13] MEDS: INSULIN ASPART (NovoLOG) 100 UNIT/ML VIAL SQ SCH ×4 (07:05→20:14)
[2018-05-13] MEDS: FORMOTEROL FUMARATE 20 MCG/2 ML NEBU INHALATION SCH ×2 (07:51→20:06)
[2018-05-13] MEDS: BUDESONIDE 1 MG/2 ML NEBU INHALATION SCH ×2 (07:51→20:06)
[2018-05-13] MEDS: DILTIAZEM ORAL 30 MG TAB PO SCH ×4 (08:18→21:42)
[2018-05-13] MEDS: MAGNESIUM SULFATE-D5W PMX 1 GM in DEXTROSE/WATER 1 100ML.BAG IVPB SCH ×2 (08:18→12:45)
[2018-05-13] MEDS: CHLORHEXIDINE GLUCONATE 15 ML CUP MUCOUS MEM SCH ×2 (08:18→20:23)
[2018-05-13] MEDS: ALPRAZolam 1 MG TAB PO PRN ×2 (08:18→13:35)
[2018-05-13] MEDS: predniSONE 20 MG TAB PO SCH (08:19)
[2018-05-13] MEDS: DOXYCYCLINE 100 MG CAP PO SCH ×2 (08:19→20:23)
[2018-05-13] MEDS: HEPARIN SODIUM,PORCINE 5,000 UNIT/ML 1 ML VIAL SQ SCH ×2 (08:19→20:23)
[2018-05-13] MEDS: HYDROmorphone 0.5 MG/0.5 ML SYRINGE IVP PRN ×3 (08:32→22:48)
[2018-05-13 12:16] LABS: Glucose,Whole Blood 130 mg/dL (75-99)
[2018-05-13] MEDS: HYDROcodone/APAP 5-325MG 1 EACH TAB PO PRN ×2 (12:44→18:22)
--- NOTE | 2018-05-13 16:22 | P.PN ---
Subjective This is a pleasant 68 years old female with past medical history of COPD, fibromyalgia, hyperlipidemia, osteoporosis. Patient was admitted for COPD acute exacerbation. Patient have been in the ICU for more than a week. Eventually she got trach collar yesterday. And she is able to move out of bed to chair with trach collar and FiO2 35%. She started to proceeding. And she is being followed closely by the pulmonary/critical care team 05/12/2018 Patient remains on trach collar with a flow at 8 L/m off oxygen. She is not dyspneic and no wheezing on examination. She is limited dyspneic but no chest pain and no significant cough. Feeding tube has been taking off and patient couldn't eat today but tachycardic today. She has mild leukocytosis of 13.3 K. BMP was unremarkable with creatinine 0.45, sugar is controlled. Sputum showing diphtheroid species. We started the patient on doxycycline. 05/13/2018 Patient remains on the ICU on trach collar and oxygen flow at 15. Patient with no dyspnea and no chest pain. Her sputum cultures showing diphtheroid species and she was started on doxycycline. Her leukocyte is 14.9 K today. Patient she feels generally better and she is eating more trying to get strength, patient is in good mood. Objective - Vital Signs Vital signs: Vital Signs Temp 98.3 F 05/13/18 12:00 Pulse 110 H 05/13/18 14:00 Resp 22 05/13/18 14:00 BP 134/80 05/13/18 14:00 Pulse Ox 98 05/13/18 14:00 Intake & Output 05/12/18 05/13/18 05/13/18 18:59 06:59 18:59 Intake Total 1510 220 60 Output Total 1080 675 610 Balance 430 -455 -550 Weight 55.9 kg Intake: IV 310 120 60 Magnesium Sulfate-D5w Pmx 100 1 gm In Dextrose/Water 1 100ml.bag @ 100 mls/hr IVPB Q1H WIN[facility]RED Rx#: [id number] Magnesium Sulfate-D5w Pmx 100 1 gm In Dextrose/Water 1 100ml.bag @ 100 mls/hr IVPB Q1H WIN[facility]RED Rx#: [id number] Sodium Chloride 0.9% 1, 110 120 60 000 ml @ 10 mls/hr IV . Q24H WIN[facility]RED Rx#:[id number] Oral 840 100 Tube Feeding 240 Other 120 Output: Urine 1080 675 610 Other: Voiding Method Indwelling Catheter Indwelling Catheter Indwelling Catheter # Bowel Movements 1 - Exam -GENERAL: The patient is alert and oriented x3, not in any acute distress. She is on trach collar, HEENT: Pupils are round and equally reacting to light. EOMI. No scleral icterus. No conjunctival pallor. Normocephalic, atraumatic. No pharyngeal erythema. No thyromegaly. CARDIOVASCULAR: S1 and S2 present. No murmurs, rubs, or gallops. PULMONARY: Chest is clear to auscultation, no wheezing or crackles. ABDOMEN: Soft, nontender, nondistended, normoactive bowel sounds. No palpable organomegaly. MUSCULOSKELETAL: No joint swelling or deformity. EXTREMITIES: No cyanosis, clubbing, or pedal edema. NEUROLOGICAL: Gross neurological examination did not reveal any focal deficits. SKIN: No rashes. - Labs CBC & Chem 7: 05/13/18 05:17 05/13/18 05:17 Labs: Abnormal Lab Results - Last 24 Hours (Table) 05/12/18 05/12/18 05/13/18 Range/Units 16:56 20:32 05:17 WBC 14.9 H (3.8-10.6) k/uL Neutrophils # (Manual) 11.47 H (1.3-7.7) k/uL Monocytes # (Manual) 1.04 H (0-1.0) k/uL Myelocytes # (Manual) 0.45 H (0) k/uL Chloride (98-107) mmol/L Carbon Dioxide (22-30) mmol/L BUN (7-17) mg/dL Creatinine (0.52-1.04) mg/dL POC Glucose (mg/dL) 170 H 131 H (75-99) mg/dL 05/13/18 05/13/18 Range/Units 05:17 12:14 WBC (3.8-10.6) k/uL Neutrophils # (Manual) (1.3-7.7) k/uL Monocytes # (Manual) (0-1.0) k/uL Myelocytes # (Manual) (0) k/uL Chloride 93 L (98-107) mmol/L Carbon Dioxide 40 H (22-30) mmol/L BUN 43 H (7-17) mg/dL Creatinine 0.49 L (0.52-1.04) mg/dL POC Glucose (mg/dL) 130 H (75-99) mg/dL Assessment and Plan Assessment: Chronic obstructive pulmonary disease with acute exacerbation and acute right lower lobe pneumonia possibly gram-negative with acute hypoxic respiratory failure needing ventilatory support Recent tracheostomy Diphtheroids and sputum culture with leukocytosis agnesemia History of fibromyalgia History of anxiety Osteoporosis History of MRSA History of cholecystectomy Plan: This is a pleasant 58 years old female who presents with acute COPD exacerbation. C continue with antibiotics. ontinue with tapering steroids. Patient got trach collar and she is tolerating the oxygenation with FiO2 of 35% . Out of bed to chair.Labs and medication were reviewed.. Continue same treatment. Continue with symptomatic treatment. Resume home medication. Monitor lytes and vitals. DVT and GI prophylaxis. Further recommendations of the clinical course of the patient DVT prophylaxis: Subcutaneous heparin GI Prophylaxis: PPI Prognosis is guarded
--- NOTE | 2018-05-13 16:49 | P.PN ---
Subjective Progress Note Date: 05/13/18 This is a 50-year-old white female patient that we saw in consultation yesterday. Patient was admitted to the hospital on O2 2018 for complaints of shortness of breath. Patient does have a chronic tracheostomy in place for multiple episodes of respiratory failure, this was done in January 2018 at [facility]. Patient lives in [place], and she was taken to the [facility] by EMS on O2 2018. She denied any recent fever , chills or cough. Chest x-ray at the [facility] showed the possibility of pneumonia. Chest x-ray was completed at this facility on 2018 and showed hyperinflated lungs with flattening of diaphragms suggesting COPD questionable subtle airspace opacities within the lower lungs. White blood cell count was 6.3, hemoglobin is 12.7, electrolytes were unremarkable, with the exception of CO2 which was elevated 33 suggesting chronic hypercapnic respiratory failure, B1 was a creatinine 0.35, urinalysis was negative for infection, influenza screen was negative. Patient was on trach collar, however last night patient started experiencing worsening shortness of breath, currently her inner cannula came out of the tracheostomy, and patient was severely hypoxemic, with O2 sat of around 48%. She was brought to the intensive care unit, in view of severe respiratory distress, and abnormal blood gases laced on the ventilator support. Initial blood gas this morning showed pO2 of 288, pCO2 of 100, and pH of 7.14, this was done and FiO2 100%. Patient was placed on mom assist-control mode of ventilation with a rate of 30, tidal vital 325, FiO2 50% and PEEP of 5. This morning were seeing the patient in the intensive care unit, she remains on assist control mode of ventilation, she is calm and comfortable, she is awake, in no acute distress, lung sounds are quite diminished, no significant rhonchi or wheezes. His chest x-ray has been reviewed with Dr. Gil, and showed trace bilateral pleural effusions, hyperinflated lungs. Vital signs are stable, with the exception of mild tachycardia, with a rate between 108-120 BPM, blood pressure is 80-100 systolic , and the diastolic blood pressure between 60-80 BPM. Patient is slightly oliguric, with a urine output between 5-15 mL. IV fluids were increased to 0.9 normal saline at a rate of 75 ML per hour, Diprivan and is currently at 50 mics per kilo per minute. Today's blood work shows some white blood cell count increased to 34.6, electrolytes were within normal limits, B1 of 17 and creatinine was 0.46. Urinalysis was negative for infection. Patient is on IV steroids, empiric antiemetics in the form of Levaquin, and nebulized bronchodilators. On today's evaluation of 05/06/2018, I'm seeing this patient for a follow-up. She is awake and she's off Diprivan this morning. She is receiving Ativan for anxiety pH remains on a mechanical ventilator. Her blood gases earlier this morning showed a component of respiratory alkalosis with a pH of 7.53 with a pCO2 of 36 and pO2 of 151. His was done by the patient's respiratory rate was at 30 with tidal volume of 3 on 25 and FiO2 of 40% and PEEP of 5. Based on this , I dropped a respiratory rate down to 20. She is doing well. She is awake and alert. She was given a short trial of pressure support mode of ventilation with a pressure support of 5 and PEEP of 5 and she was able to tolerate it for a total of 30 minutes. The tracheostomy tube catheter that she has does not have any parts available in our institution. I talked with respiratory and we are thinking of replacing it with a conventional Shiley tracheostomy tube with a later stage. The patient is still nothing by mouth. She does not have any tach 2. I've decided to proceed with a Dobbhoff tube insertion for enteral feeding and nutritional support. This will be also needed for medication. The patient is still having some sinus tachycardia. Her heart rate is ranging between 110 and 130 and is sinus. She is on IV fluids. She is receiving 0.9 normal saline at the rate of 75 mL an hour. She has an adequate urine output. She is afebrile. Her chest x-ray showing hyperinflation without evidence of any acute pneumonia or pulmonary infiltrates. She is quite anxious. She is able to communicate easily. The blood work is been all negative and within normal limits. Potassium is to be replaced. Phosphorus is to be replaced. Influenza screen was negative. Note that her COPD is advanced and the patient has had previous bouts of prolonged ventilator Failure requiring a long-term tracheostomy tube insertion. On today's evaluation of 05/07/2018 I'm seeing this patient for a follow-up. The patient is off Diprivan. The patient is awake and alert. She is less anxious compared to yesterday. Earlier this morning shows placed on a pressure support mode of ventilation. She was placed upper support of 5 and a PEEP of 5. Acid sequently put on a pressure support of 10 and eliminated the PEEP. She did well with this setting pulling tidal volumes above 300. Note that yesterday, I replaced this patient's tracheostomy tube. I put put in a #6 Shiley tracheostomy tube in nonfenestrated. I also inserted a Dobbhoff catheter in this patient. Both of this disease went fine without any major difficulties. The patient is currently receiving tube feeds in the form of vitamin 1.2 at the rate of 10 mL an hour and this will be gradually advanced to goal. She seems to be calm and comfortable. She seems to be doing well. She is awake. She is interactive. She denies having any pain. No synovitis or secretions. Chest x-ray shows COPD and hyperinflation and there are no other acute abnormalities noted. She remains on DuoNeb nebulized treatments around the clock, she remains on IV Solu-Medrol, once the Doppler was inserted, the patient was started on Cardizem 30 mg by mouth 4 times a day and her heart rate is under much better control. She remains in some mild Sinus tachycardia. She is on IV Protonix. She is doing also IV Levaquin. On 05/08/2018, the patient is awake and alert. We have her in a sitting up position in the bed. I have been a pressure support mode of ventilation at the pressure of 10. Doing well. Very anxious. She is requiring the Xanax around the clock and the Xanax dose has to be increased to control her anxiety levels. She is tolerating her tube feeds via Dobbhoff. She has a #[address] She is tolerating her tube feeds. No nausea. No vomiting. No chest pain. She is awake and alert and interactive. Her sinus tachycardia is improved. She remains on examination bronchodilators and steroids. Overnight, the patient was placed on VC plus mode with a tidal volume of 325 and a PEEP of 5 with an FiO2 of 40% and a PEEP of 5 and a rate of 20. This is her baseline respiratory rate in the volume cycle. No other significant events overnight. On today's evaluation of 05/09/2018, the patient is doing good progress. She is awake and alert. She is less anxious. I increased her Xanax up to 1 mg 4 times a day and she doing better with this regimen. She is much more comfortable. She is tolerating her tube feeds. She on same vent setting for today with IVC plus mode with a tidal volume of 325 and at 8 rate of 20 with an FiO2 of 40% with a PEEP of 5. The blood gases from today showed a pH of 7.54 with a pCO2 of 51 and pO2 of 118. She has developed some mild metabolic alkalosis. Her serum bicarb is up to 39. Chest x-ray shows no acute abnormalities. She is doing better. Rapid shallow breathing index is 86. The patient will be given a longer pressure support mode of ventilation today and I' m going to extend her probably for couple of hours, as yesterday she was able to do it only for 2 hours. She is able to communicate fairly well. No sinus tachycardia. She remains on bronchodilators. She remains on systemic steroids. No other significant events overnight otherwise for now. 05/10/2018 I'm seeing this patient for a follow-up. The patient is being mechanically ventilated with an assist-control mode of ventilation him a volume cycled with essentially the same rate. 4 yesterday, the patient tolerated a follow-up pressure support mode of ventilation the morning and another 2 hours in the afternoon. Not anxious this morning. She has a hypokalemia and hypomagnesemia and both are being replaced. We checked a set of weaning parameters this morning and the patient rapid shallow breathing index was 80 and what she on now on a pressure support mode of ventilation. Her chest x-ray findings are stable. She is on bronchodilators. IV Solu Medrol will be weaned off. She is tolerating her tube feeds. She is weak. She is awake and alert. No other significant events overnight. No fever or chills. No altered mentation. Note that the patient had shown a component of metabolic alkalosis on yesterday's blood gas. Based on that, the patient was given 2 doses of Diamox 250 mg IV push. Her morning blood gases showed improvement and acid base status. The patient is at 7.41 with a pCO2 of 56 and pO2 of 132 and this was done on a tidal volume of 325 with a respiratory rate of 20 and FiO2 of 40% and a PEEP of 5. On 05/11/2018 I'm seeing this patient for a follow-up. The patient was able to trach collar yesterday without the support of the mechanical ventilator for several hours. The same is being done today. She was able to close the stoma and speak full sentences on few occasions. Overall she is doing well. She is tolerating her tube feeds through the Dobbhoff. She is on bronchodilators. She is on systemic steroids and this was weaned off yesterday and her blood gases from today showed a pH of 7.41 with a pCO2 of 56 and pO2 131 and this was done on assist control mode of ventilation. Anxiety levels are low. I have introduced the idea of taking this patient to select specialty. This is something that she would benefit from in the future. There are presented will be talking to the patient today. Meanwhile, we'll do hours daily physical therapy. We'll set up on a chair. She is currently on trach collar with 35% FiO2. On 05/12/2018, the patient is on a trach collar. She is calm and comfortable. No respiratory distress. Overnight she is using the mechanical ventilator. The Dobbhoff catheter will be removed and the patient be fed today. She is hemodynamically stable. She is calm and comfortable. Anxiety levels are low. She we'll be able to sit up on a chair today. No other significant events otherwise for now. She remains on bronchodilators, inhaled corticosteroids, Perforomist nebulized treatment twice a day and IV Solu Medrol 4 mg every 12 hours. The issue and is awake. She is afebrile. There are diphtheroids species in the sputum which is probably a colonizer. Blood cultures negative. Urine culture is negative. On 05/13/2018, patient has no specific complaints. She is on a chair in color. We changes in her cannula to a fenestrated one and the patient will be given a speaking valve. She is eating orally and I was told that the patient is advancing her diet and she is having decent amount of oral intake. No significant weakness. We'll be able to sit up on a chair. She was taken off the IV Solu-Medrol and the patient be started on prednisone burst taper. No fever. No chills. No abdominal pain. No altered mentation. No other significant events overnight. Objective - Vital Signs Vital signs: Vital Signs Temp 98.3 F 05/13/18 12:00 Pulse 58 L 05/13/18 16:32 Resp 22 05/13/18 14:00 BP 134/80 05/13/18 14:00 Pulse Ox 98 05/13/18 14:00 Intake & Output 05/12/18 05/13/18 05/13/18 18:59 06:59 18:59 Intake Total 1510 220 60 Output Total 1080 675 610 Balance 430 -455 -550 Weight 55.9 kg Intake: IV 310 120 60 Magnesium Sulfate-D5w Pmx 100 1 gm In Dextrose/Water 1 100ml.bag @ 100 mls/hr IVPB Q1H [facility] Rx#: [id number] Magnesium Sulfate-D5w Pmx 100 1 gm In Dextrose/Water 1 100ml.bag @ 100 mls/hr IVPB Q1H WIN[facility]RED Rx#: [id number] Sodium Chloride 0.9% 1, 110 120 60 000 ml @ 10 mls/hr IV . Q24H WINIFRED Rx#:[id number] Oral 840 100 Tube Feeding 240 Other 120 Output: Urine 1080 675 610 Other: Voiding Method Indwelling Catheter Indwelling Catheter Indwelling Catheter # Bowel Movements 1 - Exam GENERAL EXAM: Alert, pleasant, 50-year-old white female, currently on 35% trach collar HEAD: Normocephalic/atraumatic. EYES: Normal reaction of pupils, equal size. Conjunctiva pink, sclera white. NOSE: Clear with pink turbinates. THROAT: No erythema or exudates. NECK: No masses, no JVD, no thyroid enlargement, no adenopathy. CHEST: No chest wall deformity. Symmetrical expansion. LUNGS: Equal air entry with diminished breath sounds bilaterally CVS: Regular rate and rhythm, normal S1 and S2, no gallops, no murmurs, no rubs ABDOMEN: Soft, nontender. No hepatosplenomegaly, normal bowel sounds, no guarding or rigidity. EXTREMITIES: No clubbing, no edema, no cyanosis, 2+ pulses and upper and lower extremities. MUSCULOSKELETAL: Muscle strength and tone normal. SPINE: No scoliosis or deformity SKIN: No rashes CENTRAL NERVOUS SYSTEM: Alert and oriented -3. No focal deficits, tone is normal in all 4 extremities. PSYCHIATRIC: Alert and oriented -3. Appropriate affect. Intact judgment and insight. - Labs CBC & Chem 7: 05/13/18 05:17 05/13/18 05:17 Labs: Abnormal Lab Results - Last 24 Hours (Table) 05/12/18 05/12/18 05/13/18 Range/Units 16:56 20:32 05:17 WBC 14.9 H (3.8-10.6) k/uL Neutrophils # (Manual) 11.47 H (1.3-7.7) k/uL Monocytes # (Manual) 1.04 H (0-1.0) k/uL Myelocytes # (Manual) 0.45 H (0) k/uL Chloride (98-107) mmol/L Carbon Dioxide (22-30) mmol/L BUN (7-17) mg/dL Creatinine (0.52-1.04) mg/dL POC Glucose (mg/dL) 170 H 131 H (75-99) mg/dL 05/13/18 05/13/18 Range/Units 05:17 12:14 WBC (3.8-10.6) k/uL Neutrophils # (Manual) (1.3-7.7) k/uL Monocytes # (Manual) (0-1.0) k/uL Myelocytes # (Manual) (0) k/uL Chloride 93 L (98-107) mmol/L Carbon Dioxide 40 H (22-30) mmol/L BUN 43 H (7-17) mg/dL Creatinine 0.49 L (0.52-1.04) mg/dL POC Glucose (mg/dL) 130 H (75-99) mg/dL Assessment and Plan Plan: Assessment 1 acute on chronic hypercapnic respiratory failure secondary to COPD exacerbation. Patient is gradually getting stronger. The patient is recovering from respiratory. He is currently she is on a trach collar oxygen. No signs of any significant respiratory distress. The Dobbhoff catheter will be removed and the patient will be provided some oral food. 2 chronic hypercapnic and hypoxic respiratory failure due to advanced COPD, 3 history of permanent tracheostomy tube placement 4 fibromyalgia 5 chronic anxiety 6 chronic osteoporosis 7 previous history of smoking 8 electrode imbalance with hypokalemia and hypophosphatemia, replaced 9 sinus tachycardia, improved Plan Proceed with a speaking valve. Aggressive physical therapy. Advance diet as tolerated. Anxiety levels are well controlled. She is hemodynamically stable. She is on oral Cardizem for rate control. She is on a combination of Perforomist and Pulmicort nebulized treatments and DuoNeb nebulized treatments 4 times a day. She was started on a prednisone burst taper. Antibiotics have been switched to oral doxycycline. Discharge planning is in progress. We'll continue to follow. As mentioned, long-term prognosis poor baseline above- mentioned coronary disease. Her COPD advanced and end-stage.
[2018-05-13] MEDS: SODIUM CHLORIDE 0.9% 1,000 ML IV SCH (18:24)
[2018-05-13] MEDS ORDERED: ALPRAZolam 1 MG TAB PO STA (19:50)
[2018-05-13 20:12] LABS: Glucose,Whole Blood 121 mg/dL (75-99)
[2018-05-13] MEDS: PRAVASTATIN SODIUM 20 MG TAB PO SCH (20:23)
[2018-05-13] MEDS: PANTOPRAZOLE 40 MG/10 ML VIAL IVP SCH (20:23)
[2018-05-14] MEDS: IPRATROPIUM-ALBUTEROL 3 ML NEB INHALATION SCH ×6 (03:06→23:05)
[2018-05-14] MEDS ORDERED: SODIUM CHLORIDE 0.9% 1,000 ML IV ONE (03:17)
[2018-05-14 05:32] LABS: Blood Urea Nitrogen 37 mg/dL (7-17); Calcium 8.5 mg/dL (8.4-10.2); Chloride 96 mmol/L (98-107); Glucose 98 mg/dL (74-99); Magnesium 1.6 mg/dL (1.6-2.3); Phosphorus 3.3 mg/dL (2.5-4.5); Potassium 3.9 mmol/L (3.5-5.1); Sodium 139 mmol/L (137-145)
[2018-05-14 05:39] LABS: Anion Gap 2 mmol/L
[2018-05-14 05:41] LABS: Carbon Dioxide 41 mmol/L (22-30)
[2018-05-14 05:51] LABS: HGB 10.5 gm/dL (11.4-16.0); MCH 30.7 pg (25.0-35.0); MCHC 32.8 g/dL (31.0-37.0); MCV 93.5 fL (80.0-100.0); Mean Platelet Volume 6.1; Platelet Count 331 k/uL (150-450); RBC 3.42 m/uL (3.80-5.40); RDW 15.1 % (11.5-15.5); WBC 14.2 k/uL (3.8-10.6)
[2018-05-14] MEDS ORDERED: POTASSIUM BICARBONATE/CIT AC 20 MEQ TABLET.EFF NG-TUBE SCH (06:00)
[2018-05-14] MEDS: MAGNESIUM SULFATE-D5W PMX 1 GM in DEXTROSE/WATER 1 100ML.BAG IVPB SCH ×2 (06:08→10:58)
[2018-05-14 06:44] LABS: Band Neutrophils % 4 %; Eosinophils # (M) 0.14 k/uL (0-0.7); Lymphocytes # (M) 0.85 k/uL (1.0-4.8); Monocytes # (M) 0.85 k/uL (0-1.0); Neutrophils % (M) 83 %; Nucleated Red Blood Cells 0 /100 WBC (0-0); Total Cells Counted 100
[2018-05-14 07:10] LABS: Glucose,Whole Blood 113 mg/dL (75-99)
[2018-05-14 07:10] LABS: Glucose,Whole Blood 98 mg/dL (75-99)
[2018-05-14] MEDS: INSULIN ASPART (NovoLOG) 100 UNIT/ML VIAL SQ SCH ×4 (07:11→21:32)
[2018-05-14] MEDS: BUDESONIDE 1 MG/2 ML NEBU INHALATION SCH ×2 (07:40→19:11)
[2018-05-14] MEDS: FORMOTEROL FUMARATE 20 MCG/2 ML NEBU INHALATION SCH ×2 (07:40→19:10)
[2018-05-14] MEDS: HYDROcodone/APAP 5-325MG 1 EACH TAB PO PRN (09:08)
[2018-05-14] MEDS: ALPRAZolam 1 MG TAB PO PRN ×2 (09:09→14:45)
[2018-05-14] MEDS: DILTIAZEM ORAL 30 MG TAB PO SCH ×4 (09:09→21:23)
[2018-05-14] MEDS: HEPARIN SODIUM,PORCINE 5,000 UNIT/ML 1 ML VIAL SQ SCH ×2 (09:10→21:22)
[2018-05-14] MEDS: predniSONE 20 MG TAB PO SCH (09:10)
[2018-05-14] MEDS: CHLORHEXIDINE GLUCONATE 15 ML CUP MUCOUS MEM SCH ×2 (09:10→21:22)
[2018-05-14] MEDS: DOXYCYCLINE 100 MG CAP PO SCH ×2 (09:21→21:22)
[2018-05-14] MEDS: HYDROmorphone 0.5 MG/0.5 ML SYRINGE IVP PRN ×2 (10:55→21:23)
[2018-05-14 12:25] LABS: Glucose,Whole Blood 116 mg/dL (75-99)
--- NOTE | 2018-05-14 13:52 | P.PN ---
Subjective Progress Note Date: 05/14/18 This is a 50-year-old white female patient that we saw in consultation yesterday. Patient was admitted to the hospital on O2 2018 for complaints of shortness of breath. Patient does have a chronic tracheostomy in place for multiple episodes of respiratory failure, this was done in January 2018 at [facility]. Patient lives in [place], and she was taken to the [facility] by EMS on O2 2018. She denied any recent fever , chills or cough. Chest x-ray at the [facility] showed the possibility of pneumonia. Chest x-ray was completed at this facility on 2018 and showed hyperinflated lungs with flattening of diaphragms suggesting COPD questionable subtle airspace opacities within the lower lungs. White blood cell count was 6.3, hemoglobin is 12.7, electrolytes were unremarkable, with the exception of CO2 which was elevated 33 suggesting chronic hypercapnic respiratory failure, B1 was a creatinine 0.35, urinalysis was negative for infection, influenza screen was negative. Patient was on trach collar, however last night patient started experiencing worsening shortness of breath, currently her inner cannula came out of the tracheostomy, and patient was severely hypoxemic, with O2 sat of around 48%. She was brought to the intensive care unit, in view of severe respiratory distress, and abnormal blood gases laced on the ventilator support. Initial blood gas this morning showed pO2 of 288, pCO2 of 100, and pH of 7.14, this was done and FiO2 100%. Patient was placed on mom assist-control mode of ventilation with a rate of 30, tidal vital 325, FiO2 50% and PEEP of 5. This morning were seeing the patient in the intensive care unit, she remains on assist control mode of ventilation, she is calm and comfortable, she is awake, in no acute distress, lung sounds are quite diminished, no significant rhonchi or wheezes. His chest x-ray has been reviewed with Dr. Gil, and showed trace bilateral pleural effusions, hyperinflated lungs. Vital signs are stable, with the exception of mild tachycardia, with a rate between 108-120 BPM, blood pressure is 80-100 systolic , and the diastolic blood pressure between 60-80 BPM. Patient is slightly oliguric, with a urine output between 5-15 mL. IV fluids were increased to 0.9 normal saline at a rate of 75 ML per hour, Diprivan and is currently at 50 mics per kilo per minute. Today's blood work shows some white blood cell count increased to 34.6, electrolytes were within normal limits, B1 of 17 and creatinine was 0.46. Urinalysis was negative for infection. Patient is on IV steroids, empiric antiemetics in the form of Levaquin, and nebulized bronchodilators. On today's evaluation of 05/06/2018, I'm seeing this patient for a follow-up. She is awake and she's off Diprivan this morning. She is receiving Ativan for anxiety pH remains on a mechanical ventilator. Her blood gases earlier this morning showed a component of respiratory alkalosis with a pH of 7.53 with a pCO2 of 36 and pO2 of 151. His was done by the patient's respiratory rate was at 30 with tidal volume of 3 on 25 and FiO2 of 40% and PEEP of 5. Based on this , I dropped a respiratory rate down to 20. She is doing well. She is awake and alert. She was given a short trial of pressure support mode of ventilation with a pressure support of 5 and PEEP of 5 and she was able to tolerate it for a total of 30 minutes. The tracheostomy tube catheter that she has does not have any parts available in our institution. I talked with respiratory and we are thinking of replacing it with a conventional Shiley tracheostomy tube with a later stage. The patient is still nothing by mouth. She does not have any tach 2. I've decided to proceed with a Dobbhoff tube insertion for enteral feeding and nutritional support. This will be also needed for medication. The patient is still having some sinus tachycardia. Her heart rate is ranging between 110 and 130 and is sinus. She is on IV fluids. She is receiving 0.9 normal saline at the rate of 75 mL an hour. She has an adequate urine output. She is afebrile. Her chest x-ray showing hyperinflation without evidence of any acute pneumonia or pulmonary infiltrates. She is quite anxious. She is able to communicate easily. The blood work is been all negative and within normal limits. Potassium is to be replaced. Phosphorus is to be replaced. Influenza screen was negative. Note that her COPD is advanced and the patient has had previous bouts of prolonged ventilator Failure requiring a long-term tracheostomy tube insertion. On today's evaluation of 05/07/2018 I'm seeing this patient for a follow-up. The patient is off Diprivan. The patient is awake and alert. She is less anxious compared to yesterday. Earlier this morning shows placed on a pressure support mode of ventilation. She was placed upper support of 5 and a PEEP of 5. Acid sequently put on a pressure support of 10 and eliminated the PEEP. She did well with this setting pulling tidal volumes above 300. Note that yesterday, I replaced this patient's tracheostomy tube. I put put in a #6 Shiley tracheostomy tube in nonfenestrated. I also inserted a Dobbhoff catheter in this patient. Both of this disease went fine without any major difficulties. The patient is currently receiving tube feeds in the form of vitamin 1.2 at the rate of 10 mL an hour and this will be gradually advanced to goal. She seems to be calm and comfortable. She seems to be doing well. She is awake. She is interactive. She denies having any pain. No synovitis or secretions. Chest x-ray shows COPD and hyperinflation and there are no other acute abnormalities noted. She remains on DuoNeb nebulized treatments around the clock, she remains on IV Solu-Medrol, once the Doppler was inserted, the patient was started on Cardizem 30 mg by mouth 4 times a day and her heart rate is under much better control. She remains in some mild Sinus tachycardia. She is on IV Protonix. She is doing also IV Levaquin. On 05/08/2018, the patient is awake and alert. We have her in a sitting up position in the bed. I have been a pressure support mode of ventilation at the pressure of 10. Doing well. Very anxious. She is requiring the Xanax around the clock and the Xanax dose has to be increased to control her anxiety levels. She is tolerating her tube feeds via Dobbhoff. She has a #[address] She is tolerating her tube feeds. No nausea. No vomiting. No chest pain. She is awake and alert and interactive. Her sinus tachycardia is improved. She remains on examination bronchodilators and steroids. Overnight, the patient was placed on VC plus mode with a tidal volume of 325 and a PEEP of 5 with an FiO2 of 40% and a PEEP of 5 and a rate of 20. This is her baseline respiratory rate in the volume cycle. No other significant events overnight. On today's evaluation of 05/09/2018, the patient is doing good progress. She is awake and alert. She is less anxious. I increased her Xanax up to 1 mg 4 times a day and she doing better with this regimen. She is much more comfortable. She is tolerating her tube feeds. She on same vent setting for today with IVC plus mode with a tidal volume of 325 and at 8 rate of 20 with an FiO2 of 40% with a PEEP of 5. The blood gases from today showed a pH of 7.54 with a pCO2 of 51 and pO2 of 118. She has developed some mild metabolic alkalosis. Her serum bicarb is up to 39. Chest x-ray shows no acute abnormalities. She is doing better. Rapid shallow breathing index is 86. The patient will be given a longer pressure support mode of ventilation today and I' m going to extend her probably for couple of hours, as yesterday she was able to do it only for 2 hours. She is able to communicate fairly well. No sinus tachycardia. She remains on bronchodilators. She remains on systemic steroids. No other significant events overnight otherwise for now. 05/10/2018 I'm seeing this patient for a follow-up. The patient is being mechanically ventilated with an assist-control mode of ventilation him a volume cycled with essentially the same rate. 4 yesterday, the patient tolerated a follow-up pressure support mode of ventilation the morning and another 2 hours in the afternoon. Not anxious this morning. She has a hypokalemia and hypomagnesemia and both are being replaced. We checked a set of weaning parameters this morning and the patient rapid shallow breathing index was 80 and what she on now on a pressure support mode of ventilation. Her chest x-ray findings are stable. She is on bronchodilators. IV Solu Medrol will be weaned off. She is tolerating her tube feeds. She is weak. She is awake and alert. No other significant events overnight. No fever or chills. No altered mentation. Note that the patient had shown a component of metabolic alkalosis on yesterday's blood gas. Based on that, the patient was given 2 doses of Diamox 250 mg IV push. Her morning blood gases showed improvement and acid base status. The patient is at 7.41 with a pCO2 of 56 and pO2 of 132 and this was done on a tidal volume of 325 with a respiratory rate of 20 and FiO2 of 40% and a PEEP of 5. On 05/11/2018 I'm seeing this patient for a follow-up. The patient was able to trach collar yesterday without the support of the mechanical ventilator for several hours. The same is being done today. She was able to close the stoma and speak full sentences on few occasions. Overall she is doing well. She is tolerating her tube feeds through the Dobbhoff. She is on bronchodilators. She is on systemic steroids and this was weaned off yesterday and her blood gases from today showed a pH of 7.41 with a pCO2 of 56 and pO2 131 and this was done on assist control mode of ventilation. Anxiety levels are low. I have introduced the idea of taking this patient to select specialty. This is something that she would benefit from in the future. There are presented will be talking to the patient today. Meanwhile, we'll do hours daily physical therapy. We'll set up on a chair. She is currently on trach collar with 35% FiO2. On 05/12/2018, the patient is on a trach collar. She is calm and comfortable. No respiratory distress. Overnight she is using the mechanical ventilator. The Dobbhoff catheter will be removed and the patient be fed today. She is hemodynamically stable. She is calm and comfortable. Anxiety levels are low. She we'll be able to sit up on a chair today. No other significant events otherwise for now. She remains on bronchodilators, inhaled corticosteroids, Perforomist nebulized treatment twice a day and IV Solu Medrol 4 mg every 12 hours. The issue and is awake. She is afebrile. There are diphtheroids species in the sputum which is probably a colonizer. Blood cultures negative. Urine culture is negative. On 05/13/2018, patient has no specific complaints. She is on a chair in color. We changes in her cannula to a fenestrated one and the patient will be given a speaking valve. She is eating orally and I was told that the patient is advancing her diet and she is having decent amount of oral intake. No significant weakness. We'll be able to sit up on a chair. She was taken off the IV Solu-Medrol and the patient be started on prednisone burst taper. No fever. No chills. No abdominal pain. No altered mentation. No other significant events overnight. On 05/14/2018 I'm seeing this patient for a follow-up. Doing well. She is using the speaking valve and she is very much comfortable. Overnight she had some issues with hypotension while sleeping. She was given a bolus of 1 L of normal saline. Urine output improved. Otherwise, she is undergoing daily physical therapy. She is tolerating her diet. She is able to sit up on a chair. No significant events. We are working to send this patient to a rehab facility at a later stage for further exercise and strengthening. No fever. No chills. Hemodynamically stable. Objective - Vital Signs Vital signs: Vital Signs Temp 98.3 F 05/14/18 12:00 Pulse 118 H 05/14/18 13:11 Resp 15 05/14/18 12:00 BP 111/71 05/14/18 12:00 Pulse Ox 99 05/14/18 12:00 Intake & Output 05/13/18 05/14/18 05/14/18 18:59 06:59 18:59 Intake Total 120 1300 40 Output Total 1260 625 280 Balance -1140 675 -240 Weight 56.7 kg 56.7 kg Intake: IV 120 1300 40 Magnesium Sulfate-D5w Pmx 200 1 gm In Dextrose/Water 1 100ml.bag @ 100 mls/hr IVPB Q1H [facility] Rx#: [id number] Sodium Chloride 0.9% 1, 120 100 40 000 ml @ 10 mls/hr IV . Q24H [facility] Rx#:[id number] Sodium Chloride 0.9% 1, 1000 000 ml @ 999 mls/hr IV . Q1H1M [facility] Rx#:[id number] Output: Urine 1260 625 280 Other: Voiding Method Indwelling Catheter Indwelling Catheter Indwelling Catheter - Exam GENERAL EXAM: Alert, pleasant, 50-year-old white female, currently on 35% trach collar HEAD: Normocephalic/atraumatic. EYES: Normal reaction of pupils, equal size. Conjunctiva pink, sclera white. NOSE: Clear with pink turbinates. THROAT: No erythema or exudates. NECK: No masses, no JVD, no thyroid enlargement, no adenopathy. CHEST: No chest wall deformity. Symmetrical expansion. LUNGS: Equal air entry with diminished breath sounds bilaterally CVS: Regular rate and rhythm, normal S1 and S2, no gallops, no murmurs, no rubs ABDOMEN: Soft, nontender. No hepatosplenomegaly, normal bowel sounds, no guarding or rigidity. EXTREMITIES: No clubbing, no edema, no cyanosis, 2+ pulses and upper and lower extremities. MUSCULOSKELETAL: Muscle strength and tone normal. SPINE: No scoliosis or deformity SKIN: No rashes CENTRAL NERVOUS SYSTEM: Alert and oriented -3. No focal deficits, tone is normal in all 4 extremities. PSYCHIATRIC: Alert and oriented -3. Appropriate affect. Intact judgment and insight. - Labs CBC & Chem 7: 05/14/18 04:54 05/14/18 04:54 Labs: Abnormal Lab Results - Last 24 Hours (Table) 05/13/18 05/14/18 05/14/18 Range/Units 20:10 04:54 04:54 WBC 14.2 H (3.8-10.6) k/uL RBC 3.42 L (3.80-5.40) m/uL Hgb 10.5 L (11.4-16.0) gm/dL Hct 32.0 L (34.0-46.0) % Neutrophils # (Manual) 12.30 H (1.3-7.7) k/uL Lymphocytes # (Manual) 0.85 L (1.0-4.8) k/uL Chloride 96 L (98-107) mmol/L Carbon Dioxide 41 H* (22-30) mmol/L BUN 37 H (7-17) mg/dL Creatinine 0.41 L (0.52-1.04) mg/dL POC Glucose (mg/dL) 121 H (75-99) mg/dL 05/14/18 05/14/18 Range/Units 07:07 12:22 WBC (3.8-10.6) k/uL RBC (3.80-5.40) m/uL Hgb (11.4-16.0) gm/dL Hct (34.0-46.0) % Neutrophils # (Manual) (1.3-7.7) k/uL Lymphocytes # (Manual) (1.0-4.8) k/uL Chloride (98-107) mmol/L Carbon Dioxide (22-30) mmol/L BUN (7-17) mg/dL Creatinine (0.52-1.04) mg/dL POC Glucose (mg/dL) 113 H 116 H (75-99) mg/dL Assessment and Plan Plan: Assessment 1 acute on chronic hypercapnic respiratory failure secondary to COPD exacerbation. Patient is gradually getting stronger. The patient is recovering from respiratory. He is currently she is on a trach collar oxygen. No signs of any significant respiratory distress. The Dobbhoff catheter will be removed and the patient will be provided some oral food. 2 chronic hypercapnic and hypoxic respiratory failure due to advanced COPD, 3 history of permanent tracheostomy tube placement 4 fibromyalgia 5 chronic anxiety 6 chronic osteoporosis 7 previous history of smoking 8 electrode imbalance with hypokalemia and hypophosphatemia, replaced 9 sinus tachycardia, improved Plan Aggressive physical therapy. Continue same treatment. Speaking valve has been added and the patient is conversing. We will hold on using the ventilator overnight on a trial basis. We are working with case management regarding chesting this patient to rehabilitation for further strengthening post respiratory failure.
[2018-05-14 17:41] LABS: Glucose,Whole Blood 123 mg/dL (75-99)
[2018-05-14 20:27] LABS: Glucose,Whole Blood 157 mg/dL (75-99)
[2018-05-14] MEDS: PANTOPRAZOLE 40 MG TABLET PO SCH (21:22)
[2018-05-14] MEDS: PRAVASTATIN SODIUM 20 MG TAB PO SCH (21:22)
[2018-05-14] MEDS: SODIUM CHLORIDE 0.9% 1,000 ML IV SCH (21:35)
--- NOTE | 2018-05-14 22:44 | P.PN ---
Subjective This is a pleasant 68 years old female with past medical history of COPD, fibromyalgia, hyperlipidemia, osteoporosis. Patient was admitted for COPD acute exacerbation. Patient have been in the ICU for more than a week. Eventually she got trach collar yesterday. And she is able to move out of bed to chair with trach collar and FiO2 35%. She started to proceeding. And she is being followed closely by the pulmonary/critical care team 05/12/2018 Patient remains on trach collar with a flow at 8 L/m off oxygen. She is not dyspneic and no wheezing on examination. She is limited dyspneic but no chest pain and no significant cough. Feeding tube has been taking off and patient couldn't eat today but tachycardic today. She has mild leukocytosis of 13.3 K. BMP was unremarkable with creatinine 0.45, sugar is controlled. Sputum showing diphtheroid species. We started the patient on doxycycline. 05/13/2018 Patient remains on the ICU on trach collar and oxygen flow at 15. Patient with no dyspnea and no chest pain. Her sputum cultures showing diphtheroid species and she was started on doxycycline. Her leukocyte is 14.9 K today. Patient she feels generally better and she is eating more trying to get strength, patient is in good mood. 05/14/18 pt feels better today , she is eating well , she is participating in physical therapy , she can talk using the speaking valve. pt is clincally stable and is improving Objective - Vital Signs Vital signs: Vital Signs Temp 98.5 F 05/14/18 16:00 Pulse 108 H 05/14/18 19:35 Resp 18 05/14/18 19:00 BP 137/85 05/14/18 19:00 Pulse Ox 99 05/14/18 19:00 Intake & Output 05/14/18 05/14/18 05/15/18 06:59 18:59 06:59 Intake Total 1300 110 10 Output Total 625 1030 75 Balance 675 920 -65 Weight 56.7 kg 56.7 kg Intake: IV 1300 110 10 Magnesium Sulfate-D5w Pmx 200 1 gm In Dextrose/Water 1 100ml.bag @ 100 mls/hr IVPB Q1H [facility] Rx#: [id number] Sodium Chloride 0.9% 1, 100 110 10 000 ml @ 10 mls/hr IV . Q24H [facility] Rx#:[id number] Sodium Chloride 0.9% 1, 1000 000 ml @ 999 mls/hr IV . Q1H1M [facility] Rx#:[id number] Output: Urine 625 1030 75 Other: Voiding Method Indwelling Catheter Indwelling Catheter - Exam -GENERAL: The patient is alert and oriented x3, not in any acute distress. She is on trach collar, HEENT: Pupils are round and equally reacting to light. EOMI. No scleral icterus. No conjunctival pallor. Normocephalic, atraumatic. No pharyngeal erythema. No thyromegaly. CARDIOVASCULAR: S1 and S2 present. No murmurs, rubs, or gallops. PULMONARY: Chest is clear to auscultation, no wheezing or crackles. ABDOMEN: Soft, nontender, nondistended, normoactive bowel sounds. No palpable organomegaly. MUSCULOSKELETAL: No joint swelling or deformity. EXTREMITIES: No cyanosis, clubbing, or pedal edema. NEUROLOGICAL: Gross neurological examination did not reveal any focal deficits. SKIN: No rashes. - Labs CBC & Chem 7: 05/14/18 04:54 05/14/18 04:54 Labs: Abnormal Lab Results - Last 24 Hours (Table) 05/13/18 05/14/18 05/14/18 Range/Units 20:10 04:54 04:54 WBC 14.2 H (3.8-10.6) k/uL RBC 3.42 L (3.80-5.40) m/uL Hgb 10.5 L (11.4-16.0) gm/dL Hct 32.0 L (34.0-46.0) % Neutrophils # (Manual) 12.30 H (1.3-7.7) k/uL Lymphocytes # (Manual) 0.85 L (1.0-4.8) k/uL Chloride 96 L (98-107) mmol/L Carbon Dioxide 41 H* (22-30) mmol/L BUN 37 H (7-17) mg/dL Creatinine 0.41 L (0.52-1.04) mg/dL POC Glucose (mg/dL) 121 H (75-99) mg/dL 05/14/18 05/14/18 05/14/18 Range/Units 07:07 12:22 17:37 WBC (3.8-10.6) k/uL RBC (3.80-5.40) m/uL Hgb (11.4-16.0) gm/dL Hct (34.0-46.0) % Neutrophils # (Manual) (1.3-7.7) k/uL Lymphocytes # (Manual) (1.0-4.8) k/uL Chloride (98-107) mmol/L Carbon Dioxide (22-30) mmol/L BUN (7-17) mg/dL Creatinine (0.52-1.04) mg/dL POC Glucose (mg/dL) 113 H 116 H 123 H (75-99) mg/dL Assessment and Plan Assessment: Chronic obstructive pulmonary disease with acute exacerbation and acute right lower lobe pneumonia possibly gram-negative with acute hypoxic respiratory failure needing ventilatory support Recent tracheostomy Diphtheroids and sputum culture with leukocytosis agnesemia History of fibromyalgia History of anxiety Osteoporosis History of MRSA History of cholecystectomy Plan: This is a pleasant 58 years old female who presents with acute COPD exacerbation. C continue with antibiotics. ontinue with tapering steroids. Patient got trach collar and she is tolerating the oxygenation with FiO2 of 35% . Out of bed to chair.Labs and medication were reviewed.. Continue same treatment. Continue with symptomatic treatment. Resume home medication. Monitor lytes and vitals. DVT and GI prophylaxis. Further recommendations of the clinical course of the patient DVT prophylaxis: Subcutaneous heparin GI Prophylaxis: PPI Prognosis is guarded
[2018-05-15] MEDS: ALPRAZolam 1 MG TAB PO PRN ×2 (00:08→07:57)
[2018-05-15] MEDS: HYDROcodone/APAP 5-325MG 1 EACH TAB PO PRN ×3 (02:06→18:30)
[2018-05-15] MEDS: traMADol 50 MG TAB PO PRN (02:53)
[2018-05-15] MEDS: IPRATROPIUM-ALBUTEROL 3 ML NEB INHALATION SCH ×6 (03:10→22:59)
[2018-05-15 05:07] LABS: HCT 33.7 % (34.0-46.0); HGB 10.8 gm/dL (11.4-16.0); MCHC 32.1 g/dL (31.0-37.0); MCV 93.5 fL (80.0-100.0); Mean Platelet Volume 5.7; Platelet Count 326 k/uL (150-450); RBC 3.61 m/uL (3.80-5.40); RDW 15.1 % (11.5-15.5); WBC 19.1 k/uL (3.8-10.6)
[2018-05-15 05:20] LABS: Blood Urea Nitrogen 25 mg/dL (7-17); Calcium 9.2 mg/dL (8.4-10.2); Chloride 92 mmol/L (98-107); Glucose 102 mg/dL (74-99); Magnesium 1.4 mg/dL (1.6-2.3); Phosphorus 4.3 mg/dL (2.5-4.5); Potassium 4.3 mmol/L (3.5-5.1); Sodium 139 mmol/L (137-145)
[2018-05-15] MEDS: HYDROmorphone 0.5 MG/0.5 ML SYRINGE IVP PRN ×3 (05:24→22:08)
[2018-05-15 05:26] LABS: Anion Gap 3 mmol/L
[2018-05-15 05:31] LABS: Carbon Dioxide 44 mmol/L (22-30)
[2018-05-15] MEDS ORDERED: Magnesium Replacement Protocol 1 EACH MISC MISCELLANE PRN (05:46)
[2018-05-15] MEDS: MAGNESIUM SULFATE-D5W PMX 1 GM in DEXTROSE/WATER 1 100ML.BAG IVPB SCH ×3 (06:17→09:02)
[2018-05-15 06:49] LABS: Glucose,Whole Blood 119 mg/dL (75-99)
[2018-05-15] MEDS: INSULIN ASPART (NovoLOG) 100 UNIT/ML VIAL SQ SCH ×4 (07:00→20:50)
--- NOTE | 2018-05-15 07:09 | XR ---
EXAMINATION TYPE: XR chest 1V portable DATE OF EXAM: 05/15/2018 CLINICAL HISTORY: Difficulty breathing progress study. TECHNIQUE: Single AP portable semiupright view of the chest is obtained. COMPARISON: Chest x-ray from May 11, 2018 FINDINGS: Tracheostomy tube is redemonstrated. There is background chronic emphysematous change with right hilar surgical clips again seen. There is no new focal airspace opacity, pleural effusion, or pneumothorax seen bilaterally. Interval removal of weighted feeding tube noted. Cardiac silhouette si ze is upper limits of normal with atherosclerotic thoracic aorta. Osseous structures are intact. IMPRESSION: Interval removal of feeding catheter. Chronic emphysematous and bibasilar parenchymal helio nges without acute pulmonary process redemonstrated.
[2018-05-15] MEDS: BUDESONIDE 1 MG/2 ML NEBU INHALATION SCH ×2 (07:16→20:07)
[2018-05-15] MEDS: FORMOTEROL FUMARATE 20 MCG/2 ML NEBU INHALATION SCH ×2 (07:16→20:07)
[2018-05-15] MEDS: HEPARIN SODIUM,PORCINE 5,000 UNIT/ML 1 ML VIAL SQ SCH ×2 (09:02→21:01)
[2018-05-15] MEDS: DOXYCYCLINE 100 MG CAP PO SCH ×2 (09:03→21:02)
[2018-05-15] MEDS: CHLORHEXIDINE GLUCONATE 15 ML CUP MUCOUS MEM SCH ×2 (09:03→21:02)
[2018-05-15] MEDS: predniSONE 20 MG TAB PO SCH (09:03)
[2018-05-15] MEDS: DILTIAZEM ORAL 30 MG TAB PO SCH ×4 (09:03→21:02)
[2018-05-15 11:45] LABS: Glucose,Whole Blood 146 mg/dL (75-99)
--- NOTE | 2018-05-15 13:30 | P.PN ---
Subjective This is a pleasant 68 years old female with past medical history of COPD, fibromyalgia, hyperlipidemia, osteoporosis. Patient was admitted for COPD acute exacerbation. Patient have been in the ICU for more than a week. Eventually she got trach collar yesterday. And she is able to move out of bed to chair with trach collar and FiO2 35%. She started to proceeding. And she is being followed closely by the pulmonary/critical care team 05/12/2018 Patient remains on trach collar with a flow at 8 L/m off oxygen. She is not dyspneic and no wheezing on examination. She is limited dyspneic but no chest pain and no significant cough. Feeding tube has been taking off and patient couldn't eat today but tachycardic today. She has mild leukocytosis of 13.3 K. BMP was unremarkable with creatinine 0.45, sugar is controlled. Sputum showing diphtheroid species. We started the patient on doxycycline. 05/13/2018 Patient remains on the ICU on trach collar and oxygen flow at 15. Patient with no dyspnea and no chest pain. Her sputum cultures showing diphtheroid species and she was started on doxycycline. Her leukocyte is 14.9 K today. Patient she feels generally better and she is eating more trying to get strength, patient is in good mood. 05/14/18 pt feels better today , she is eating well , she is participating in physical therapy , she can talk using the speaking valve. pt is clincally stable and is improving 05/15/2018 Patient in the ICU, clinically stable. Tolerating diet well. Breathing nonlabored. Hemodynamically stable. Leukocytosis, gradually trending up. Patient on prednisone and doxycycline. Culture showing diphtheroid species. Chest x-ray: No acute changes. Objective - Vital Signs Vital signs: Vital Signs Temp 98 F 05/15/18 08:00 Pulse 115 H 05/15/18 11:00 Resp 59 H 05/15/18 11:00 BP 117/72 05/15/18 11:00 Pulse Ox 89 L 05/15/18 11:00 Intake & Output 05/14/18 05/15/18 05/15/18 18:59 06:59 18:59 Intake Total 616 005 4905 Output Total 1030 1120 550 Balance -920 -723 490 Weight 56.7 kg 56.3 kg Intake: IV 110 120 340 Magnesium Sulfate-D5w Pmx 100 1 gm In Dextrose/Water 1 100ml.bag @ 100 mls/hr IVPB Q1H [facility] Rx#: [id number] Magnesium Sulfate-D5w Pmx 200 1 gm In Dextrose/Water 1 100ml.bag @ 100 mls/hr IVPB Q1H [facility]RED Rx#: [id number] Sodium Chloride 0.9% 1, 110 120 40 000 ml @ 10 mls/hr IV . Q24H WIN[facility]RED Rx#:[id number] Oral 337 700 Output: Urine 1030 1120 550 Other: Voiding Method Indwelling Catheter Indwelling Catheter Indwelling Catheter # Bowel Movements 1 - Labs CBC & Chem 7: 05/15/18 04:45 05/15/18 04:45 Labs: Abnormal Lab Results - Last 24 Hours (Table) 05/14/18 05/14/18 05/15/18 Range/Units 17:37 20:13 04:45 WBC 19.1 H (3.8-10.6) k/uL RBC 3.61 L (3.80-5.40) m/uL Hgb 10.8 L (11.4-16.0) gm/dL Hct 33.7 L (34.0-46.0) % Chloride (98-107) mmol/L Carbon Dioxide (22-30) mmol/L BUN (7-17) mg/dL Creatinine (0.52-1.04) mg/dL Glucose (74-99) mg/dL POC Glucose (mg/dL) 123 H 157 H (75-99) mg/dL Magnesium (1.6-2.3) mg/dL 05/15/18 05/15/18 05/15/18 Range/Units 04:45 06:46 11:43 WBC (3.8-10.6) k/uL RBC (3.80-5.40) m/uL Hgb (11.4-16.0) gm/dL Hct (34.0-46.0) % Chloride 92 L (98-107) mmol/L Carbon Dioxide 44 H* (22-30) mmol/L BUN 25 H (7-17) mg/dL Creatinine 0.34 L (0.52-1.04) mg/dL Glucose 102 H (74-99) mg/dL POC Glucose (mg/dL) 119 H 146 H (75-99) mg/dL Magnesium 1.4 L (1.6-2.3) mg/dL
--- NOTE | 2018-05-15 13:39 | P.PN ---
Subjective Progress Note Date: 05/15/18 This is a 50-year-old white female patient that we saw in consultation yesterday. Patient was admitted to the hospital on O2 2018 for complaints of shortness of breath. Patient does have a chronic tracheostomy in place for multiple episodes of respiratory failure, this was done in January 2018 at [facility]. Patient lives in [place], and she was taken to the [facility] by EMS on O2 2018. She denied any recent fever , chills or cough. Chest x-ray at the [facility] showed the possibility of pneumonia. Chest x-ray was completed at this facility on 2018 and showed hyperinflated lungs with flattening of diaphragms suggesting COPD questionable subtle airspace opacities within the lower lungs. White blood cell count was 6.3, hemoglobin is 12.7, electrolytes were unremarkable, with the exception of CO2 which was elevated 33 suggesting chronic hypercapnic respiratory failure, B1 was a creatinine 0.35, urinalysis was negative for infection, influenza screen was negative. Patient was on trach collar, however last night patient started experiencing worsening shortness of breath, currently her inner cannula came out of the tracheostomy, and patient was severely hypoxemic, with O2 sat of around 48%. She was brought to the intensive care unit, in view of severe respiratory distress, and abnormal blood gases laced on the ventilator support. Initial blood gas this morning showed pO2 of 288, pCO2 of 100, and pH of 7.14, this was done and FiO2 100%. Patient was placed on mom assist-control mode of ventilation with a rate of 30, tidal vital 325, FiO2 50% and PEEP of 5. This morning were seeing the patient in the intensive care unit, she remains on assist control mode of ventilation, she is calm and comfortable, she is awake, in no acute distress, lung sounds are quite diminished, no significant rhonchi or wheezes. His chest x-ray has been reviewed with Dr. Gil, and showed trace bilateral pleural effusions, hyperinflated lungs. Vital signs are stable, with the exception of mild tachycardia, with a rate between 108-120 BPM, blood pressure is 80-100 systolic , and the diastolic blood pressure between 60-80 BPM. Patient is slightly oliguric, with a urine output between 5-15 mL. IV fluids were increased to 0.9 normal saline at a rate of 75 ML per hour, Diprivan and is currently at 50 mics per kilo per minute. Today's blood work shows some white blood cell count increased to 34.6, electrolytes were within normal limits, B1 of 17 and creatinine was 0.46. Urinalysis was negative for infection. Patient is on IV steroids, empiric antiemetics in the form of Levaquin, and nebulized bronchodilators. On today's evaluation of 05/06/2018, I'm seeing this patient for a follow-up. She is awake and she's off Diprivan this morning. She is receiving Ativan for anxiety pH remains on a mechanical ventilator. Her blood gases earlier this morning showed a component of respiratory alkalosis with a pH of 7.53 with a pCO2 of 36 and pO2 of 151. His was done by the patient's respiratory rate was at 30 with tidal volume of 3 on 25 and FiO2 of 40% and PEEP of 5. Based on this , I dropped a respiratory rate down to 20. She is doing well. She is awake and alert. She was given a short trial of pressure support mode of ventilation with a pressure support of 5 and PEEP of 5 and she was able to tolerate it for a total of 30 minutes. The tracheostomy tube catheter that she has does not have any parts available in our institution. I talked with respiratory and we are thinking of replacing it with a conventional Shiley tracheostomy tube with a later stage. The patient is still nothing by mouth. She does not have any tach 2. I've decided to proceed with a Dobbhoff tube insertion for enteral feeding and nutritional support. This will be also needed for medication. The patient is still having some sinus tachycardia. Her heart rate is ranging between 110 and 130 and is sinus. She is on IV fluids. She is receiving 0.9 normal saline at the rate of 75 mL an hour. She has an adequate urine output. She is afebrile. Her chest x-ray showing hyperinflation without evidence of any acute pneumonia or pulmonary infiltrates. She is quite anxious. She is able to communicate easily. The blood work is been all negative and within normal limits. Potassium is to be replaced. Phosphorus is to be replaced. Influenza screen was negative. Note that her COPD is advanced and the patient has had previous bouts of prolonged ventilator Failure requiring a long-term tracheostomy tube insertion. On today's evaluation of 05/07/2018 I'm seeing this patient for a follow-up. The patient is off Diprivan. The patient is awake and alert. She is less anxious compared to yesterday. Earlier this morning shows placed on a pressure support mode of ventilation. She was placed upper support of 5 and a PEEP of 5. Acid sequently put on a pressure support of 10 and eliminated the PEEP. She did well with this setting pulling tidal volumes above 300. Note that yesterday, I replaced this patient's tracheostomy tube. I put put in a #6 Shiley tracheostomy tube in nonfenestrated. I also inserted a Dobbhoff catheter in this patient. Both of this disease went fine without any major difficulties. The patient is currently receiving tube feeds in the form of vitamin 1.2 at the rate of 10 mL an hour and this will be gradually advanced to goal. She seems to be calm and comfortable. She seems to be doing well. She is awake. She is interactive. She denies having any pain. No synovitis or secretions. Chest x-ray shows COPD and hyperinflation and there are no other acute abnormalities noted. She remains on DuoNeb nebulized treatments around the clock, she remains on IV Solu-Medrol, once the Doppler was inserted, the patient was started on Cardizem 30 mg by mouth 4 times a day and her heart rate is under much better control. She remains in some mild Sinus tachycardia. She is on IV Protonix. She is doing also IV Levaquin. On 05/08/2018, the patient is awake and alert. We have her in a sitting up position in the bed. I have been a pressure support mode of ventilation at the pressure of 10. Doing well. Very anxious. She is requiring the Xanax around the clock and the Xanax dose has to be increased to control her anxiety levels. She is tolerating her tube feeds via Dobbhoff. She has a #[address] She is tolerating her tube feeds. No nausea. No vomiting. No chest pain. She is awake and alert and interactive. Her sinus tachycardia is improved. She remains on examination bronchodilators and steroids. Overnight, the patient was placed on VC plus mode with a tidal volume of 325 and a PEEP of 5 with an FiO2 of 40% and a PEEP of 5 and a rate of 20. This is her baseline respiratory rate in the volume cycle. No other significant events overnight. On today's evaluation of 05/09/2018, the patient is doing good progress. She is awake and alert. She is less anxious. I increased her Xanax up to 1 mg 4 times a day and she doing better with this regimen. She is much more comfortable. She is tolerating her tube feeds. She on same vent setting for today with IVC plus mode with a tidal volume of 325 and at 8 rate of 20 with an FiO2 of 40% with a PEEP of 5. The blood gases from today showed a pH of 7.54 with a pCO2 of 51 and pO2 of 118. She has developed some mild metabolic alkalosis. Her serum bicarb is up to 39. Chest x-ray shows no acute abnormalities. She is doing better. Rapid shallow breathing index is 86. The patient will be given a longer pressure support mode of ventilation today and I' m going to extend her probably for couple of hours, as yesterday she was able to do it only for 2 hours. She is able to communicate fairly well. No sinus tachycardia. She remains on bronchodilators. She remains on systemic steroids. No other significant events overnight otherwise for now. 05/10/2018 I'm seeing this patient for a follow-up. The patient is being mechanically ventilated with an assist-control mode of ventilation him a volume cycled with essentially the same rate. 4 yesterday, the patient tolerated a follow-up pressure support mode of ventilation the morning and another 2 hours in the afternoon. Not anxious this morning. She has a hypokalemia and hypomagnesemia and both are being replaced. We checked a set of weaning parameters this morning and the patient rapid shallow breathing index was 80 and what she on now on a pressure support mode of ventilation. Her chest x-ray findings are stable. She is on bronchodilators. IV Solu Medrol will be weaned off. She is tolerating her tube feeds. She is weak. She is awake and alert. No other significant events overnight. No fever or chills. No altered mentation. Note that the patient had shown a component of metabolic alkalosis on yesterday's blood gas. Based on that, the patient was given 2 doses of Diamox 250 mg IV push. Her morning blood gases showed improvement and acid base status. The patient is at 7.41 with a pCO2 of 56 and pO2 of 132 and this was done on a tidal volume of 325 with a respiratory rate of 20 and FiO2 of 40% and a PEEP of 5. On 05/11/2018 I'm seeing this patient for a follow-up. The patient was able to trach collar yesterday without the support of the mechanical ventilator for several hours. The same is being done today. She was able to close the stoma and speak full sentences on few occasions. Overall she is doing well. She is tolerating her tube feeds through the Dobbhoff. She is on bronchodilators. She is on systemic steroids and this was weaned off yesterday and her blood gases from today showed a pH of 7.41 with a pCO2 of 56 and pO2 131 and this was done on assist control mode of ventilation. Anxiety levels are low. I have introduced the idea of taking this patient to [facility]. This is something that she would benefit from in the future. There are presented will be talking to the patient today. Meanwhile, we'll do hours daily physical therapy. We'll set up on a chair. She is currently on trach collar with 35% FiO2. On 05/12/2018, the patient is on a trach collar. She is calm and comfortable. No respiratory distress. Overnight she is using the mechanical ventilator. The Dobbhoff catheter will be removed and the patient be fed today. She is hemodynamically stable. She is calm and comfortable. Anxiety levels are low. She we'll be able to sit up on a chair today. No other significant events otherwise for now. She remains on bronchodilators, inhaled corticosteroids, Perforomist nebulized treatment twice a day and IV Solu Medrol 4 mg every 12 hours. The issue and is awake. She is afebrile. There are diphtheroids species in the sputum which is probably a colonizer. Blood cultures negative. Urine culture is negative. On 05/13/2018, patient has no specific complaints. She is on a chair in color. We changes in her cannula to a fenestrated one and the patient will be given a speaking valve. She is eating orally and I was told that the patient is advancing her diet and she is having decent amount of oral intake. No significant weakness. We'll be able to sit up on a chair. She was taken off the IV Solu-Medrol and the patient be started on prednisone burst taper. No fever. No chills. No abdominal pain. No altered mentation. No other significant events overnight. On 05/14/2018 I'm seeing this patient for a follow-up. Doing well. She is using the speaking valve and she is very much comfortable. Overnight she had some issues with hypotension while sleeping. She was given a bolus of 1 L of normal saline. Urine output improved. Otherwise, she is undergoing daily physical therapy. She is tolerating her diet. She is able to sit up on a chair. No significant events. We are working to send this patient to a rehab facility at a later stage for further exercise and strengthening. No fever. No chills. Hemodynamically stable. On 2018, this patient is awake and alert. She was able to stay off the mechanical ventilator for the past 24 hours pH is on a trach collar. Doing extremely well. She was able to sit up on a chair. She is doing some limited amount of walking with significant assistance. The patient is tolerating her diet. She is hemodynamic is stable. Heart is under good control. No fever or chills. Adequate urine output. She is using a speaking valve and she is able to converse without any major difficulties. Anxiety levels are good. She is not interested in going to [facility] despite my recommendations. She wants to continue rehabilitation here in the hospital. She wants to ultimately go home once she is better. Objective - Vital Signs Vital signs: Vital Signs Temp 98 F 05/15/18 08:00 Pulse 115 H 05/15/18 11:00 Resp 59 H 05/15/18 11:00 BP 117/72 05/15/18 11:00 Pulse Ox 89 L 05/15/18 11:00 Intake & Output 05/14/18 05/15/18 05/15/18 18:59 06:59 18:59 Intake Total 741 585 4750 Output Total 1030 1120 550 Balance -920 663 490 Weight 56.7 kg 56.3 kg Intake: IV 110 120 340 Magnesium Sulfate-D5w Pmx 100 1 gm In Dextrose/Water 1 100ml.bag @ 100 mls/hr IVPB Q1H [facility] Rx#: [id number] Magnesium Sulfate-D5w Pmx 200 1 gm In Dextrose/Water 1 100ml.bag @ 100 mls/hr IVPB Q1H [facility]RED Rx#: [id number] Sodium Chloride 0.9% 1, 110 120 40 000 ml @ 10 mls/hr IV . Q24H WIN[facility]RED Rx#:[id number] Oral 337 700 Output: Urine 1030 1120 550 Other: Voiding Method Indwelling Catheter Indwelling Catheter Indwelling Catheter # Bowel Movements 1 - Exam GENERAL EXAM: Alert, pleasant, 50-year-old white female, currently on 35% trach collar HEAD: Normocephalic/atraumatic. EYES: Normal reaction of pupils, equal size. Conjunctiva pink, sclera white. NOSE: Clear with pink turbinates. THROAT: No erythema or exudates. NECK: No masses, no JVD, no thyroid enlargement, no adenopathy. CHEST: No chest wall deformity. Symmetrical expansion. LUNGS: Equal air entry with diminished breath sounds bilaterally CVS: Regular rate and rhythm, normal S1 and S2, no gallops, no murmurs, no rubs ABDOMEN: Soft, nontender. No hepatosplenomegaly, normal bowel sounds, no guarding or rigidity. EXTREMITIES: No clubbing, no edema, no cyanosis, 2+ pulses and upper and lower extremities. MUSCULOSKELETAL: Muscle strength and tone normal. SPINE: No scoliosis or deformity SKIN: No rashes CENTRAL NERVOUS SYSTEM: Alert and oriented -3. No focal deficits, tone is normal in all 4 extremities. PSYCHIATRIC: Alert and oriented -3. Appropriate affect. Intact judgment and insight. - Labs CBC & Chem 7: 05/15/18 04:45 05/15/18 04:45 Labs: Abnormal Lab Results - Last 24 Hours (Table) 05/14/18 05/14/18 05/15/18 Range/Units 17:37 20:13 04:45 WBC 19.1 H (3.8-10.6) k/uL RBC 3.61 L (3.80-5.40) m/uL Hgb 10.8 L (11.4-16.0) gm/dL Hct 33.7 L (34.0-46.0) % Chloride (98-107) mmol/L Carbon Dioxide (22-30) mmol/L BUN (7-17) mg/dL Creatinine (0.52-1.04) mg/dL Glucose (74-99) mg/dL POC Glucose (mg/dL) 123 H 157 H (75-99) mg/dL Magnesium (1.6-2.3) mg/dL 03/05/0405/15/18 05/15/18 Range/Units 04:45 06:46 11:43 WBC (3.8-10.6) k/uL RBC (3.80-5.40) m/uL Hgb (11.4-16.0) gm/dL Hct (34.0-46.0) % Chloride 92 L (98-107) mmol/L Carbon Dioxide 44 H* (22-30) mmol/L BUN 25 H (7-17) mg/dL Creatinine 0.34 L (0.52-1.04) mg/dL Glucose 102 H (74-99) mg/dL POC Glucose (mg/dL) 119 H 146 H (75-99) mg/dL Magnesium 1.4 L (1.6-2.3) mg/dL Assessment and Plan Plan: Assessment 1 acute on chronic hypercapnic respiratory failure secondary to COPD exacerbation. The patient was taken off the mechanical ventilator. The patient is currently on a trach collar. She's been on trach collar for the past 24 hours. The ongoing problem for now in the weakness and the patient's need for ongoing rehabilitation. She [facility] 2 chronic hypercapnic and hypoxic respiratory failure due to advanced COPD, 3 history of permanent tracheostomy tube placement 4 fibromyalgia 5 chronic anxiety 6 chronic osteoporosis 7 previous history of smoking 8 electrode imbalance with hypokalemia and hypophosphatemia, replaced 9 sinus tachycardia, improved Plan Aggressive physical therapy. Continue same treatment. Speaking valve has been added and the patient is conversing. Ideally, the patient will be better served and [facility] for further rehabilitation and exercises for strengthening. She wants to stay in the hospital. I will send the spring encaser again for further discussions. I see that she will be staying in hospital till Thursday and we'll take further decisions accordingly. Continue the supportive care. Aggressive physical therapy. Regular diet. We'll follow.
[2018-05-15 17:30] LABS: Glucose,Whole Blood 142 mg/dL (75-99)
[2018-05-15] MEDS: SODIUM CHLORIDE 0.9% 1,000 ML IV SCH (19:34)
[2018-05-15 20:06] LABS: Glucose,Whole Blood 129 mg/dL (75-99)
[2018-05-15] MEDS: PANTOPRAZOLE 40 MG TABLET PO SCH (21:02)
[2018-05-15] MEDS: PRAVASTATIN SODIUM 20 MG TAB PO SCH (21:02)
[2018-05-16] MEDS: IPRATROPIUM-ALBUTEROL 3 ML NEB INHALATION SCH ×6 (03:02→23:27)
[2018-05-16 05:10] LABS: HCT 32.3 % (34.0-46.0); HGB 10.4 gm/dL (11.4-16.0); MCHC 32.3 g/dL (31.0-37.0); Mean Platelet Volume 6.7; Platelet Count 308 k/uL (150-450); RBC 3.48 m/uL (3.80-5.40); RDW 15.3 % (11.5-15.5); WBC 16.4 k/uL (3.8-10.6)
[2018-05-16 05:18] LABS: Blood Urea Nitrogen 24 mg/dL (7-17); Calcium 8.8 mg/dL (8.4-10.2); Chloride 94 mmol/L (98-107); Glucose 80 mg/dL (74-99); Magnesium 1.5 mg/dL (1.6-2.3); Phosphorus 3.3 mg/dL (2.5-4.5); Potassium 4.1 mmol/L (3.5-5.1); Sodium 137 mmol/L (137-145)
[2018-05-16 05:24] LABS: Anion Gap 2 mmol/L
[2018-05-16 05:26] LABS: Carbon Dioxide 41 mmol/L (22-30)
[2018-05-16 07:05] LABS: Glucose,Whole Blood 79 mg/dL (75-99)
[2018-05-16] MEDS: HYDROcodone/APAP 5-325MG 1 EACH TAB PO PRN ×2 (07:07→16:15)
[2018-05-16] MEDS: BUDESONIDE 1 MG/2 ML NEBU INHALATION SCH ×2 (07:19→19:32)
[2018-05-16] MEDS: FORMOTEROL FUMARATE 20 MCG/2 ML NEBU INHALATION SCH ×2 (07:19→19:32)
[2018-05-16] MEDS: MAGNESIUM SULFATE-D5W PMX 1 GM in DEXTROSE/WATER 1 100ML.BAG IVPB SCH ×2 (07:42→09:31)
[2018-05-16] MEDS: ALPRAZolam 1 MG TAB PO PRN (07:56)
[2018-05-16] MEDS: DILTIAZEM ORAL 30 MG TAB PO SCH ×4 (08:31→21:36)
[2018-05-16] MEDS: HEPARIN SODIUM,PORCINE 5,000 UNIT/ML 1 ML VIAL SQ SCH ×2 (08:31→21:35)
[2018-05-16] MEDS: traMADol 50 MG TAB PO PRN (08:31)
[2018-05-16] MEDS: CHLORHEXIDINE GLUCONATE 15 ML CUP MUCOUS MEM SCH ×2 (08:31→21:35)
[2018-05-16] MEDS: DOXYCYCLINE 100 MG CAP PO SCH ×2 (08:32→21:35)
[2018-05-16] MEDS: predniSONE 20 MG TAB PO SCH (08:32)
--- NOTE | 2018-05-16 08:36 | XR ---
EXAMINATION TYPE: XR chest 1V portable DATE OF EXAM: 05/16/2018 Comparison: 05/15/2018 Clinical History: 58 year-old female shortness of breath Findings: Tracheostomy cannula remains in place. Heart normal size. Hyperinflation with relative upper lung leslye encies. There are increased patchy right basilar opacity is noted. No sizable effusion. Impression: Possible underlying COPD. There is some increased patchy right basilar atelectasis or early infiltrat e.
[2018-05-16] MEDS: INSULIN ASPART (NovoLOG) 100 UNIT/ML VIAL SQ SCH ×4 (09:35→21:31)
[2018-05-16 12:07] LABS: Glucose,Whole Blood 153 mg/dL (75-99)
[2018-05-16] MEDS: HYDROmorphone 0.5 MG/0.5 ML SYRINGE IVP PRN ×2 (12:20→21:32)
--- NOTE | 2018-05-16 12:48 | P.PN ---
Subjective Progress Note Date: 05/16/18 This is a 50-year-old white female patient that we saw in consultation yesterday. Patient was admitted to the hospital on O2 2018 for complaints of shortness of breath. Patient does have a chronic tracheostomy in place for multiple episodes of respiratory failure, this was done in January 2018 at [facility]. Patient lives in [place], and she was taken to the [facility] by EMS on O2 2018. She denied any recent fever , chills or cough. Chest x-ray at the [facility] showed the possibility of pneumonia. Chest x-ray was completed at this facility on 2018 and showed hyperinflated lungs with flattening of diaphragms suggesting COPD questionable subtle airspace opacities within the lower lungs. White blood cell count was 6.3, hemoglobin is 12.7, electrolytes were unremarkable, with the exception of CO2 which was elevated 33 suggesting chronic hypercapnic respiratory failure, B1 was a creatinine 0.35, urinalysis was negative for infection, influenza screen was negative. Patient was on trach collar, however last night patient started experiencing worsening shortness of breath, currently her inner cannula came out of the tracheostomy, and patient was severely hypoxemic, with O2 sat of around 48%. She was brought to the intensive care unit, in view of severe respiratory distress, and abnormal blood gases laced on the ventilator support. Initial blood gas this morning showed pO2 of 288, pCO2 of 100, and pH of 7.14, this was done and FiO2 100%. Patient was placed on mom assist-control mode of ventilation with a rate of 30, tidal vital 325, FiO2 50% and PEEP of 5. This morning were seeing the patient in the intensive care unit, she remains on assist control mode of ventilation, she is calm and comfortable, she is awake, in no acute distress, lung sounds are quite diminished, no significant rhonchi or wheezes. His chest x-ray has been reviewed with Dr. Gil, and showed trace bilateral pleural effusions, hyperinflated lungs. Vital signs are stable, with the exception of mild tachycardia, with a rate between 108-120 BPM, blood pressure is 80-100 systolic , and the diastolic blood pressure between 60-80 BPM. Patient is slightly oliguric, with a urine output between 5-15 mL. IV fluids were increased to 0.9 normal saline at a rate of 75 ML per hour, Diprivan and is currently at 50 mics per kilo per minute. Today's blood work shows some white blood cell count increased to 34.6, electrolytes were within normal limits, B1 of 17 and creatinine was 0.46. Urinalysis was negative for infection. Patient is on IV steroids, empiric antiemetics in the form of Levaquin, and nebulized bronchodilators. On today's evaluation of 05/06/2018, I'm seeing this patient for a follow-up. She is awake and she's off Diprivan this morning. She is receiving Ativan for anxiety pH remains on a mechanical ventilator. Her blood gases earlier this morning showed a component of respiratory alkalosis with a pH of 7.53 with a pCO2 of 36 and pO2 of 151. His was done by the patient's respiratory rate was at 30 with tidal volume of 3 on 25 and FiO2 of 40% and PEEP of 5. Based on this , I dropped a respiratory rate down to 20. She is doing well. She is awake and alert. She was given a short trial of pressure support mode of ventilation with a pressure support of 5 and PEEP of 5 and she was able to tolerate it for a total of 30 minutes. The tracheostomy tube catheter that she has does not have any parts available in our institution. I talked with respiratory and we are thinking of replacing it with a conventional Shiley tracheostomy tube with a later stage. The patient is still nothing by mouth. She does not have any tach 2. I've decided to proceed with a Dobbhoff tube insertion for enteral feeding and nutritional support. This will be also needed for medication. The patient is still having some sinus tachycardia. Her heart rate is ranging between 110 and 130 and is sinus. She is on IV fluids. She is receiving 0.9 normal saline at the rate of 75 mL an hour. She has an adequate urine output. She is afebrile. Her chest x-ray showing hyperinflation without evidence of any acute pneumonia or pulmonary infiltrates. She is quite anxious. She is able to communicate easily. The blood work is been all negative and within normal limits. Potassium is to be replaced. Phosphorus is to be replaced. Influenza screen was negative. Note that her COPD is advanced and the patient has had previous bouts of prolonged ventilator Failure requiring a long-term tracheostomy tube insertion. On today's evaluation of 05/07/2018 I'm seeing this patient for a follow-up. The patient is off Diprivan. The patient is awake and alert. She is less anxious compared to yesterday. Earlier this morning shows placed on a pressure support mode of ventilation. She was placed upper support of 5 and a PEEP of 5. Acid sequently put on a pressure support of 10 and eliminated the PEEP. She did well with this setting pulling tidal volumes above 300. Note that yesterday, I replaced this patient's tracheostomy tube. I put put in a #6 Shiley tracheostomy tube in nonfenestrated. I also inserted a Dobbhoff catheter in this patient. Both of this disease went fine without any major difficulties. The patient is currently receiving tube feeds in the form of vitamin 1.2 at the rate of 10 mL an hour and this will be gradually advanced to goal. She seems to be calm and comfortable. She seems to be doing well. She is awake. She is interactive. She denies having any pain. No synovitis or secretions. Chest x-ray shows COPD and hyperinflation and there are no other acute abnormalities noted. She remains on DuoNeb nebulized treatments around the clock, she remains on IV Solu-Medrol, once the Doppler was inserted, the patient was started on Cardizem 30 mg by mouth 4 times a day and her heart rate is under much better control. She remains in some mild Sinus tachycardia. She is on IV Protonix. She is doing also IV Levaquin. On 05/08/2018, the patient is awake and alert. We have her in a sitting up position in the bed. I have been a pressure support mode of ventilation at the pressure of 10. Doing well. Very anxious. She is requiring the Xanax around the clock and the Xanax dose has to be increased to control her anxiety levels. She is tolerating her tube feeds via Dobbhoff. She has a #[address] She is tolerating her tube feeds. No nausea. No vomiting. No chest pain. She is awake and alert and interactive. Her sinus tachycardia is improved. She remains on examination bronchodilators and steroids. Overnight, the patient was placed on VC plus mode with a tidal volume of 325 and a PEEP of 5 with an FiO2 of 40% and a PEEP of 5 and a rate of 20. This is her baseline respiratory rate in the volume cycle. No other significant events overnight. On today's evaluation of 05/09/2018, the patient is doing good progress. She is awake and alert. She is less anxious. I increased her Xanax up to 1 mg 4 times a day and she doing better with this regimen. She is much more comfortable. She is tolerating her tube feeds. She on same vent setting for today with IVC plus mode with a tidal volume of 325 and at 8 rate of 20 with an FiO2 of 40% with a PEEP of 5. The blood gases from today showed a pH of 7.54 with a pCO2 of 51 and pO2 of 118. She has developed some mild metabolic alkalosis. Her serum bicarb is up to 39. Chest x-ray shows no acute abnormalities. She is doing better. Rapid shallow breathing index is 86. The patient will be given a longer pressure support mode of ventilation today and I' m going to extend her probably for couple of hours, as yesterday she was able to do it only for 2 hours. She is able to communicate fairly well. No sinus tachycardia. She remains on bronchodilators. She remains on systemic steroids. No other significant events overnight otherwise for now. 05/10/2018 I'm seeing this patient for a follow-up. The patient is being mechanically ventilated with an assist-control mode of ventilation him a volume cycled with essentially the same rate. 4 yesterday, the patient tolerated a follow-up pressure support mode of ventilation the morning and another 2 hours in the afternoon. Not anxious this morning. She has a hypokalemia and hypomagnesemia and both are being replaced. We checked a set of weaning parameters this morning and the patient rapid shallow breathing index was 80 and what she on now on a pressure support mode of ventilation. Her chest x-ray findings are stable. She is on bronchodilators. IV Solu Medrol will be weaned off. She is tolerating her tube feeds. She is weak. She is awake and alert. No other significant events overnight. No fever or chills. No altered mentation. Note that the patient had shown a component of metabolic alkalosis on yesterday's blood gas. Based on that, the patient was given 2 doses of Diamox 250 mg IV push. Her morning blood gases showed improvement and acid base status. The patient is at 7.41 with a pCO2 of 56 and pO2 of 132 and this was done on a tidal volume of 325 with a respiratory rate of 20 and FiO2 of 40% and a PEEP of 5. On 05/11/2018 I'm seeing this patient for a follow-up. The patient was able to trach collar yesterday without the support of the mechanical ventilator for several hours. The same is being done today. She was able to close the stoma and speak full sentences on few occasions. Overall she is doing well. She is tolerating her tube feeds through the Dobbhoff. She is on bronchodilators. She is on systemic steroids and this was weaned off yesterday and her blood gases from today showed a pH of 7.41 with a pCO2 of 56 and pO2 131 and this was done on assist control mode of ventilation. Anxiety levels are low. I have introduced the idea of taking this patient to select specialty. This is something that she would benefit from in the future. There are presented will be talking to the patient today. Meanwhile, we'll do hours daily physical therapy. We'll set up on a chair. She is currently on trach collar with 35% FiO2. On 05/12/2018, the patient is on a trach collar. She is calm and comfortable. No respiratory distress. Overnight she is using the mechanical ventilator. The Dobbhoff catheter will be removed and the patient be fed today. She is hemodynamically stable. She is calm and comfortable. Anxiety levels are low. She we'll be able to sit up on a chair today. No other significant events otherwise for now. She remains on bronchodilators, inhaled corticosteroids, Perforomist nebulized treatment twice a day and IV Solu Medrol 4 mg every 12 hours. The issue and is awake. She is afebrile. There are diphtheroids species in the sputum which is probably a colonizer. Blood cultures negative. Urine culture is negative. On 05/13/2018, patient has no specific complaints. She is on a chair in color. We changes in her cannula to a fenestrated one and the patient will be given a speaking valve. She is eating orally and I was told that the patient is advancing her diet and she is having decent amount of oral intake. No significant weakness. We'll be able to sit up on a chair. She was taken off the IV Solu-Medrol and the patient be started on prednisone burst taper. No fever. No chills. No abdominal pain. No altered mentation. No other significant events overnight. On 05/14/2018 I'm seeing this patient for a follow-up. Doing well. She is using the speaking valve and she is very much comfortable. Overnight she had some issues with hypotension while sleeping. She was given a bolus of 1 L of normal saline. Urine output improved. Otherwise, she is undergoing daily physical therapy. She is tolerating her diet. She is able to sit up on a chair. No significant events. We are working to send this patient to a rehab facility at a later stage for further exercise and strengthening. No fever. No chills. Hemodynamically stable. On 2018, this patient is awake and alert. She was able to stay off the mechanical ventilator for the past 24 hours pH is on a trach collar. Doing extremely well. She was able to sit up on a chair. She is doing some limited amount of walking with significant assistance. The patient is tolerating her diet. She is hemodynamic is stable. Heart is under good control. No fever or chills. Adequate urine output. She is using a speaking valve and she is able to converse without any major difficulties. Anxiety levels are good. She is not interested in going to select specialty despite my recommendations. She wants to continue rehabilitation here in the hospital. She wants to ultimately go home once she is better. On 05/16/2018 I'm seeing this patient in follow-up. The patient is doing well. She was able to sit up on a chair for extended period of time. She is calm and comfortable. She is getting stronger a daily basis pH is using a speaking valve. No issues reported status over the past 24 hours. She has been off the mechanical ventilator for more than 48 hours for now. She is tolerating her diet. She is able to swallow. No nausea. No vomiting. No abdominal pain. No emesis. No abdominal distention. No other significant events overnight. She is very much consistent going home after undergoing some further rehabilitation here in the hospital. Objective - Vital Signs Vital signs: Vital Signs Temp 98.3 F 05/16/18 12:00 Pulse 105 H 05/16/18 12:00 Resp 25 H 05/16/18 12:00 BP 130/75 05/16/18 12:00 Pulse Ox 95 05/16/18 12:00 Intake & Output 0305/16/18 05/16/18 18:59 06:59 18:59 Intake Total 1810 120 840 Output Total 1000 1250 300 Balance 810 -1130 540 Weight 57.1 kg Intake: IV 410 120 240 Magnesium Sulfate-D5w Pmx 100 1 gm In Dextrose/Water 1 100ml.bag @ 100 mls/hr IVPB Q1H WIN[facility]RED Rx#: [id number] Magnesium Sulfate-D5w Pmx 200 1 gm In Dextrose/Water 1 100ml.bag @ 100 mls/hr IVPB Q1H WINIFRED Rx#: [id number] Magnesium Sulfate-D5w Pmx 200 1 gm In Dextrose/Water 1 100ml.bag @ 100 mls/hr IVPB Q1H WIN[facility]RED Rx#: [id number] Sodium Chloride 0.9% 1, 110 120 40 000 ml @ 10 mls/hr IV . Q24H WINIFRED Rx#:[id number] Oral 1400 600 Output: Urine 1000 1250 300 Other: Voiding Method Bedside Commode Bedside Commode Bedside Commode # Voids 100 # Bowel Movements 1 1 - Exam GENERAL EXAM: Alert, pleasant, 50-year-old white female, currently on 35% trach collar HEAD: Normocephalic/atraumatic. EYES: Normal reaction of pupils, equal size. Conjunctiva pink, sclera white. NOSE: Clear with pink turbinates. THROAT: No erythema or exudates. NECK: No masses, no JVD, no thyroid enlargement, no adenopathy. CHEST: No chest wall deformity. Symmetrical expansion. LUNGS: Equal air entry with diminished breath sounds bilaterally CVS: Regular rate and rhythm, normal S1 and S2, no gallops, no murmurs, no rubs ABDOMEN: Soft, nontender. No hepatosplenomegaly, normal bowel sounds, no guarding or rigidity. EXTREMITIES: No clubbing, no edema, no cyanosis, 2+ pulses and upper and lower extremities. MUSCULOSKELETAL: Muscle strength and tone normal. SPINE: No scoliosis or deformity SKIN: No rashes CENTRAL NERVOUS SYSTEM: Alert and oriented -3. No focal deficits, tone is normal in all 4 extremities. PSYCHIATRIC: Alert and oriented -3. Appropriate affect. Intact judgment and insight. - Labs CBC & Chem 7: 05/16/18 04:34 05/16/18 04:34 Labs: Abnormal Lab Results - Last 24 Hours (Table) 05/15/18 05/15/1805/16/19 Range/Units 17:26 20:03 04:34 WBC 16.4 H (3.8-10.6) k/uL RBC 3.48 L (3.80-5.40) m/uL Hgb 10.4 L (11.4-16.0) gm/dL Hct 32.3 L (34.0-46.0) % Chloride (98-107) mmol/L Carbon Dioxide (22-30) mmol/L BUN (7-17) mg/dL Creatinine (0.52-1.04) mg/dL POC Glucose (mg/dL) 142 H 129 H (75-99) mg/dL Magnesium (1.6-2.3) mg/dL 05/16/18 05/16/18 Range/Units 04:34 12:04 WBC (3.8-10.6) k/uL RBC (3.80-5.40) m/uL Hgb (11.4-16.0) gm/dL Hct (34.0-46.0) % Chloride 94 L (98-107) mmol/L Carbon Dioxide 41 H* (22-30) mmol/L BUN 24 H (7-17) mg/dL Creatinine 0.38 L (0.52-1.04) mg/dL POC Glucose (mg/dL) 153 H (75-99) mg/dL Magnesium 1.5 L (1.6-2.3) mg/dL Assessment and Plan Plan: Assessment 1 acute on chronic hypercapnic respiratory failure secondary to COPD exacerbation. The patient was taken off the mechanical ventilator. The patient is currently on a trach collar. She's been on trach collar for the past 48 hours. The patient is undergoing aggressive physical therapy and rehabilitation. She is tolerating her diet. She is considering her bronchodilators. She had a prednisone burst taper. She is on doxycycline. 2 chronic hypercapnic and hypoxic respiratory failure due to advanced COPD, 3 history of permanent tracheostomy tube placement 4 fibromyalgia 5 chronic anxiety 6 chronic osteoporosis 7 previous history of smoking 8 electrode imbalance with hypokalemia and hypophosphatemia, replaced 9 sinus tachycardia, improved Plan Aggressive physical therapy. Continue same treatment. Speaking valve has been added and the patient is conversing. Awaiting further strengthening and ultimately the plan is to send this patient home with some home PT. She is showing progress. She does not want to go to [facility] at this point in time.
--- NOTE | 2018-05-16 13:26 | P.PN ---
Subjective 58-year-old female with a history of tracheostomy is admitted for COPD exacerbation. She was put on a mechanical ventilator back again. She was also put on breathing treatments, antibiotics, steroids. Patient shows progress as improved. She is back on trach collar Today the patient says that she's doing good. Her shortness of breath is better she's not coughing anymore She was eating when I went in to examine her. She wants to go home and she promises that she would work hard in the physical therapy Objective - Vital Signs Vital signs: Vital Signs Temp 98.3 F 05/16/18 12:00 Pulse 105 H 05/16/18 12:00 Resp 25 H 05/16/18 12:00 BP 130/75 05/16/18 12:00 Pulse Ox 95 05/16/18 12:00 Intake & Output 05/15/18 05/16/18 05/16/18 18:59 06:59 18:59 Intake Total 1810 120 840 Output Total 1000 1250 300 Balance 810 -1130 540 Weight 57.1 kg Intake: IV 410 120 240 Magnesium Sulfate-D5w Pmx 100 1 gm In Dextrose/Water 1 100ml.bag @ 100 mls/hr IVPB Q1H WIN[facility]RED Rx#: [id number] Magnesium Sulfate-D5w Pmx 200 1 gm In Dextrose/Water 1 100ml.bag @ 100 mls/hr IVPB Q1H WIN[facility]RED Rx#: [id number] Magnesium Sulfate-D5w Pmx 200 1 gm In Dextrose/Water 1 100ml.bag @ 100 mls/hr IVPB Q1H WINIFRED Rx#: [id number] Sodium Chloride 0.9% 1, 110 120 40 000 ml @ 10 mls/hr IV . Q24H WINIFRED Rx#:[id number] Oral 1400 600 Output: Urine 1000 1250 300 Other: Voiding Method Bedside Commode Bedside Commode Bedside Commode # Voids 100 # Bowel Movements 1 1 - Exam On exam, alert and oriented x3. HEENT: Conjunctivae normal. eyes normal. NECK: No JVD. No thyroid enlargement. No LNs CARDIOVASCULAR: S1, S2 muffled. No murmur RESPIRATION: Breath sounds diminished in the bases. No rhonchi or crackles. No bronchial breathing. Has trach collar ABDOMEN: Soft, nontender . No guarding. no masses palpable. No ascites, No hepatosplenomegaly.Bowel sounds heard. LEGS: No edema. no swelling NERVOUS SYSTEM: Cranial N 2-12 grossly normal. Moves all 4 limbs. No focal deficits. No sensory deficit. No signs of cerebellar dysfucntion. Skin: no ulcer no rash - Labs CBC & Chem 7: 05/16/18 04:34 05/16/18 04:34 Labs: Abnormal Lab Results - Last 24 Hours (Table) 05/15/18 05/15/18 05/16/18 Range/Units 17:26 20:03 04:34 WBC 16.4 H (3.8-10.6) k/uL RBC 3.48 L (3.80-5.40) m/uL Hgb 10.4 L (11.4-16.0) gm/dL Hct 32.3 L (34.0-46.0) % Chloride (98-107) mmol/L Carbon Dioxide (22-30) mmol/L BUN (7-17) mg/dL Creatinine (0.52-1.04) mg/dL POC Glucose (mg/dL) 142 H 129 H (75-99) mg/dL Magnesium (1.6-2.3) mg/dL 05/16/18 05/16/18 Range/Units 04:34 12:04 WBC (3.8-10.6) k/uL RBC (3.80-5.40) m/uL Hgb (11.4-16.0) gm/dL Hct (34.0-46.0) % Chloride 94 L (98-107) mmol/L Carbon Dioxide 41 H* (22-30) mmol/L BUN 24 H (7-17) mg/dL Creatinine 0.38 L (0.52-1.04) mg/dL POC Glucose (mg/dL) 153 H (75-99) mg/dL Magnesium 1.5 L (1.6-2.3) mg/dL Assessment and Plan Assessment: - Acute on chronic respiratory failure - COPD exacerbation contributing to above - Sinus tachycardia - History of anxiety - History of osteoporosis - History of fibromyalgia Plan - Continue to monitor in the ICU - Patient is really weak would benefit from rehab for the patient wants to go home and do home PT - Continue rest of the medical care - We'll continue to follow patient along Time with Patient: Greater than 30
[2018-05-16 16:57] LABS: Glucose,Whole Blood 179 mg/dL (75-99)
[2018-05-16 21:31] LABS: Glucose,Whole Blood 200 mg/dL (75-99)
[2018-05-16] MEDS: PRAVASTATIN SODIUM 20 MG TAB PO SCH (21:36)
[2018-05-16] MEDS: PANTOPRAZOLE 40 MG TABLET PO SCH (21:36)
[2018-05-17] MEDS: IPRATROPIUM-ALBUTEROL 3 ML NEB INHALATION SCH ×6 (03:20→23:55)
[2018-05-17] MEDS: ALPRAZolam 1 MG TAB PO PRN ×2 (04:18→20:16)
[2018-05-17] MEDS: HYDROmorphone 0.5 MG/0.5 ML SYRINGE IVP PRN ×3 (05:33→18:44)
[2018-05-17 05:42] LABS: HCT 36.2 % (34.0-46.0); HGB 11.4 gm/dL (11.4-16.0); MCH 29.2 pg (25.0-35.0); MCHC 31.6 g/dL (31.0-37.0); MCV 92.5 fL (80.0-100.0); Mean Platelet Volume 5.9; Platelet Count 339 k/uL (150-450); RBC 3.91 m/uL (3.80-5.40); RDW 15.2 % (11.5-15.5); WBC 17.4 k/uL (3.8-10.6)
[2018-05-17 05:54] LABS: Blood Urea Nitrogen 24 mg/dL (7-17); Calcium 9.7 mg/dL (8.4-10.2); Chloride 90 mmol/L (98-107); Glucose 105 mg/dL (74-99); Magnesium 1.3 mg/dL (1.6-2.3); Phosphorus 3.5 mg/dL (2.5-4.5); Sodium 136 mmol/L (137-145)
[2018-05-17 06:00] LABS: Anion Gap 5 mmol/L
[2018-05-17 06:15] LABS: Carbon Dioxide 41 mmol/L (22-30)
[2018-05-17 06:41] LABS: Glucose,Whole Blood 251 mg/dL (75-99)
[2018-05-17] MEDS: INSULIN ASPART (NovoLOG) 100 UNIT/ML VIAL SQ SCH ×4 (07:41→20:16)
[2018-05-17] MEDS: FORMOTEROL FUMARATE 20 MCG/2 ML NEBU INHALATION SCH ×2 (07:46→19:17)
[2018-05-17] MEDS: BUDESONIDE 1 MG/2 ML NEBU INHALATION SCH ×2 (07:46→19:17)
[2018-05-17 08:00] LABS: Glucose,Whole Blood 108 mg/dL (75-99)
[2018-05-17 08:00] LABS: Glucose,Whole Blood 111 mg/dL (75-99)
--- NOTE | 2018-05-17 08:21 | XR ---
EXAMINATION TYPE: XR chest 1V portable DATE OF EXAM: 05/17/2018 COMPARISON: 05/16/2018 HISTORY: Shortness of breath TECHNIQUE: Single frontal view of the chest is obtained. FINDINGS: Hyperinflation suggests COPD persistent subsegmental consolidation at the right lung base. No pneumothorax. Tracheostomy tube. Atherosclerotic change aorta. IMPRESSION: COPD with improving right basilar atelectasis or infiltrate.
[2018-05-17] MEDS: predniSONE 20 MG TAB PO SCH (10:11)
[2018-05-17] MEDS: DILTIAZEM ORAL 30 MG TAB PO SCH ×4 (10:11→23:57)
[2018-05-17] MEDS: CHLORHEXIDINE GLUCONATE 15 ML CUP MUCOUS MEM SCH (10:11)
[2018-05-17] MEDS: HEPARIN SODIUM,PORCINE 5,000 UNIT/ML 1 ML VIAL SQ SCH ×2 (10:11→20:16)
[2018-05-17] MEDS: DOXYCYCLINE 100 MG CAP PO SCH ×2 (10:25→22:45)
--- NOTE | 2018-05-17 10:37 | P.PN ---
Subjective 58-year-old female with a history of tracheostomy is admitted for COPD exacerbation. She was put on a mechanical ventilator back again. She was also put on breathing treatments, antibiotics, steroids. Patient shows progress as improved. She is back on trach collar Today the patient says that she's doing good. Her shortness of breath is better she's not coughing anymore She was eating when I went in to examine her. She wants to go home and she promises that she would work hard in the physical therapy 05/17 Had a long discussion with the patient today. Says that she really wants to go home and wants to work with physical therapy while here to see she can go home She does not complain of any shortness of breath or cough No chest pain or racing heart Objective - Vital Signs Vital signs: Vital Signs Temp 97.5 F L 05/17/18 04:00 Pulse 128 H 05/17/18 08:35 Resp 21 05/17/18 07:00 BP 126/76 05/17/18 07:00 Pulse Ox 98 05/17/18 07:00 Intake & Output 05/16/18 05/17/18 05/17/18 18:59 06:59 18:59 Intake Total 1210 407 0 Output Total 1450 2640 Balance -240 -2233 0 Weight 51.9 kg Intake: IV 250 Magnesium Sulfate-D5w Pmx 200 1 gm In Dextrose/Water 1 100ml.bag @ 100 mls/hr IVPB Q1H [facility] Rx#: [id number] Sodium Chloride 0.9% 1, 50 000 ml @ 10 mls/hr IV . Q24H [facility] Rx#:[id number] Oral 960 407 0 Output: Urine 1450 2640 Other: Voiding Method Bedpan Bedpan # Voids 100 # Bowel Movements 1 1 - Exam On exam, alert and oriented x3. HEENT: Conjunctivae normal. eyes normal. NECK: No JVD. No thyroid enlargement. No LNs CARDIOVASCULAR: S1, S2 muffled. No murmur RESPIRATION: Breath sounds diminished in the bases. No rhonchi or crackles. No bronchial breathing. Has trach collar ABDOMEN: Soft, nontender . No guarding. no masses palpable. No ascites, No hepatosplenomegaly.Bowel sounds heard. LEGS: No edema. no swelling NERVOUS SYSTEM: Cranial N 2-12 grossly normal. Moves all 4 limbs. No focal deficits. No sensory deficit. No signs of cerebellar dysfucntion. Skin: no ulcer no rash - Labs CBC & Chem 7: 05/17/18 05:20 05/17/18 05:20 Labs: Abnormal Lab Results - Last 24 Hours (Table) 05/16/18 05/16/18 05/16/18 Range/Units 12:04 16:55 21:28 WBC (3.8-10.6) k/uL Sodium (137-145) mmol/L Chloride (98-107) mmol/L Carbon Dioxide (22-30) mmol/L BUN (7-17) mg/dL Creatinine (0.52-1.04) mg/dL Glucose (74-99) mg/dL POC Glucose (mg/dL) 153 H 179 H 200 H (75-99) mg/dL Magnesium (1.6-2.3) mg/dL 05/17/18 05/17/18 05/17/18 Range/Units 05:20 05:20 06:38 WBC 17.4 H (3.8-10.6) k/uL Sodium 136 L (137-145) mmol/L Chloride 90 L (98-107) mmol/L Carbon Dioxide 41 H* (22-30) mmol/L BUN 24 H (7-17) mg/dL Creatinine 0.34 L (0.52-1.04) mg/dL Glucose 105 H (74-99) mg/dL POC Glucose (mg/dL) 251 H (75-99) mg/dL Magnesium 1.3 L (1.6-2.3) mg/dL 05/17/18 05/17/18 Range/Units 07:39 07:40 WBC (3.8-10.6) k/uL Sodium (137-145) mmol/L Chloride (98-107) mmol/L Carbon Dioxide (22-30) mmol/L BUN (7-17) mg/dL Creatinine (0.52-1.04) mg/dL Glucose (74-99) mg/dL POC Glucose (mg/dL) 108 H 111 H (75-99) mg/dL Magnesium (1.6-2.3) mg/dL Assessment and Plan Assessment: - Acute on chronic respiratory failure - COPD exacerbation contributing to above - Sinus tachycardia - History of anxiety - History of osteoporosis - History of fibromyalgia Plan - Continue to monitor in the ICU - Patient is really weak would benefit from rehab for the patient wants to go home and do home PT - Had a long discussion with the patient regarding benefit of going to rehab or cell especially divorce is going home. She said that she wants to work with physical therapy while here before deciding. And if she is really weak she is willing to go to select a rehab but she wants to work with physical therapy first. We'll have physical therapy work with her and go from there - Continue rest of the medical care - We'll continue to follow patient along Time with Patient: Greater than 30
--- NOTE | 2018-05-17 11:49 | P.PN ---
Subjective Progress Note Date: 05/17/18 Principal diagnosis: Acute on chronic hypercapnic respiratory failure secondary to COPD exacerbation. This is a 50-year-old white female patient that we saw in consultation yesterday. Patient was admitted to the hospital on O2 2018 for complaints of shortness of breath. Patient does have a chronic tracheostomy in place for multiple episodes of respiratory failure, this was done in January 2018 at [facility]. Patient lives in [place], and she was taken to the [facility] by EMS on O2 2018. She denied any recent fever , chills or cough. Chest x-ray at the [facility] showed the possibility of pneumonia. Chest x-ray was completed at this facility on 2018 and showed hyperinflated lungs with flattening of diaphragms suggesting COPD questionable subtle airspace opacities within the lower lungs. White blood cell count was 6.3, hemoglobin is 12.7, electrolytes were unremarkable, with the exception of CO2 which was elevated 33 suggesting chronic hypercapnic respiratory failure, B1 was a creatinine 0.35, urinalysis was negative for infection, influenza screen was negative. Patient was on trach collar, however last night patient started experiencing worsening shortness of breath, currently her inner cannula came out of the tracheostomy, and patient was severely hypoxemic, with O2 sat of around 48%. She was brought to the intensive care unit, in view of severe respiratory distress, and abnormal blood gases laced on the ventilator support. Initial blood gas this morning showed pO2 of 288, pCO2 of 100, and pH of 7.14, this was done and FiO2 100%. Patient was placed on mom assist-control mode of ventilation with a rate of 30, tidal vital 325, FiO2 50% and PEEP of 5. This morning were seeing the patient in the intensive care unit, she remains on assist control mode of ventilation, she is calm and comfortable, she is awake, in no acute distress, lung sounds are quite diminished, no significant rhonchi or wheezes. His chest x-ray has been reviewed with Dr. Gil, and showed trace bilateral pleural effusions, hyperinflated lungs. Vital signs are stable, with the exception of mild tachycardia, with a rate between 108-120 BPM, blood pressure is 80-100 systolic , and the diastolic blood pressure between 60-80 BPM. Patient is slightly oliguric, with a urine output between 5-15 mL. IV fluids were increased to 0.9 normal saline at a rate of 75 ML per hour, Diprivan and is currently at 50 mics per kilo per minute. Today's blood work shows some white blood cell count increased to 34.6, electrolytes were within normal limits, B1 of 17 and creatinine was 0.46. Urinalysis was negative for infection. Patient is on IV steroids, empiric antiemetics in the form of Levaquin, and nebulized bronchodilators. Patient was reevaluated today on 05/17/2018, remains in the ICU, on trach collar. Noted to be short of breath with any activity. Patient is sitting at a bedside chair, cough, in no distress at rest, coping well with the trach collar. She is off mechanical ventilation now for the last 72 hours. No major issues overnight. Patient is still insisting on going home, however I tried to talk the patient into possibly consider ECF. I have a feeling if discharged home the patient will come back to the hospital in no time. Labs were reviewed, basic metabolic profile this morning is relatively unremarkable, bicarb is 41. Objective - Vital Signs Vital signs: Vital Signs Temp 97.5 F L 05/17/18 04:00 Pulse 128 H 05/17/18 08:35 Resp 21 05/17/18 07:00 BP 126/76 05/17/18 07:00 Pulse Ox 98 05/17/18 07:00 Intake & Output 05/16/18 05/17/18 05/17/18 18:59 06:59 18:59 Intake Total 1210 407 0 Output Total 1450 2640 Balance -240 -2233 0 Weight 51.9 kg Intake: IV 250 Magnesium Sulfate-D5w Pmx 200 1 gm In Dextrose/Water 1 100ml.bag @ 100 mls/hr IVPB Q1H [facility] Rx#: [id number] Sodium Chloride 0.9% 1, 50 000 ml @ 10 mls/hr IV . Q24H [facility] Rx#:[id number] Oral 960 407 0 Output: Urine 1450 2640 Other: Voiding Method Bedpan Bedpan # Voids 100 # Bowel Movements 1 1 - Exam Physical Exam revealed a 58-year-old female in no distress at rest, but noted short of breath with any activity. Patient had a trach collar in place. HEENT:[Neck is supple.] [No neck masses.] [No thyromegaly.] [No JVD.] Patient has tracheostomy and trach collar. PERRLA, EOMI, no icterus. Chest: [Diminished breath sound bilaterally no crackles or rhonchi or wheezes.] Cardiac Exam: [Normal S1 and S2, no S3 gallop, no murmur.] Abdomen: [Soft, nontender, no megaly, no rebound, no guarding, normal bowel sounds.] Extremities: [No clubbing, no edema, no cyanosis.] Neurological Exam: [No focal neurologic deficit.] Alert oriented 3. Psychiatric: Normal mood affect and mental status examination. Lymphatics: No lymphadenopathy. Skin: No rashes and no erythema. Good skin turgor. - Labs CBC & Chem 7: 05/17/18 05:20 05/17/18 05:20 Labs: Abnormal Lab Results - Last 24 Hours (Table) 05/16/18 05/16/18 05/16/18 Range/Units 12:04 16:55 21:28 WBC (3.8-10.6) k/uL Sodium (137-145) mmol/L Chloride (98-107) mmol/L Carbon Dioxide (22-30) mmol/L BUN (7-17) mg/dL Creatinine (0.52-1.04) mg/dL Glucose (74-99) mg/dL POC Glucose (mg/dL) 153 H 179 H 200 H (75-99) mg/dL Magnesium (1.6-2.3) mg/dL 05/17/18 05/17/18 05/17/18 Range/Units 05:20 05:20 06:38 WBC 17.4 H (3.8-10.6) k/uL Sodium 136 L (137-145) mmol/L Chloride 90 L (98-107) mmol/L Carbon Dioxide 41 H* (22-30) mmol/L BUN 24 H (7-17) mg/dL Creatinine 0.34 L (0.52-1.04) mg/dL Glucose 105 H (74-99) mg/dL POC Glucose (mg/dL) 251 H (75-99) mg/dL Magnesium 1.3 L (1.6-2.3) mg/dL 05/17/18 05/17/18 Range/Units 07:39 07:40 WBC (3.8-10.6) k/uL Sodium (137-145) mmol/L Chloride (98-107) mmol/L Carbon Dioxide (22-30) mmol/L BUN (7-17) mg/dL Creatinine (0.52-1.04) mg/dL Glucose (74-99) mg/dL POC Glucose (mg/dL) 108 H 111 H (75-99) mg/dL Magnesium (1.6-2.3) mg/dL Assessment and Plan Assessment: Impression: 1 acute on chronic hypercapnic respiratory failure secondary to COPD exacerbation. Patient remains presently on trach collar. 2 acute on chronic hypoxic and hypercapnic respiratory failure secondary to COPD exacerbation 3 history of permanent tracheostomy 4 multiple comorbidities including osteoporosis, generalized anxiety disorder, fibromyalgia, Recommendation: I had a long discussion with the patient today regarding her pulmonary status, and I told her that I would feel more comfortable if she is sent to ECF instead of going home. Otherwise she would bounce back to the hospital in no time. And to be extremely difficult for her to take care of herself considering her underlying COPD and chronic respiratory failure. Overall prognosis remains extremely poor and guarded, continue bronchodilators, continue GI and DVT prophylaxis, I am hoping the patient will change her mind and agreed to discharge planning to ECF. In the meantime I believe the patient could be transferred out of the ICU to a regular medical floor, and will initiate protective services social worker consultation. Time with Patient: Less than 30
[2018-05-17 12:31] LABS: Glucose,Whole Blood 154 mg/dL (75-99)
[2018-05-17] MEDS: HYDROcodone/APAP 5-325MG 1 EACH TAB PO PRN (14:27)
[2018-05-17 16:50] LABS: Glucose,Whole Blood 135 mg/dL (75-99)
[2018-05-17 20:16] LABS: Glucose,Whole Blood 170 mg/dL (75-99)
[2018-05-17] MEDS: PANTOPRAZOLE 40 MG TABLET PO SCH (20:16)
[2018-05-17] MEDS: MAGNESIUM SULFATE-D5W PMX 1 GM in DEXTROSE/WATER 1 100ML.BAG IVPB SCH ×3 (20:47→23:57)
[2018-05-17] MEDS: PRAVASTATIN SODIUM 20 MG TAB PO SCH (22:45)
[2018-05-18] MEDS: IPRATROPIUM-ALBUTEROL 3 ML NEB INHALATION SCH ×6 (03:11→23:15)
[2018-05-18] MEDS: HYDROcodone/APAP 5-325MG 1 EACH TAB PO PRN ×2 (03:34→09:14)
[2018-05-18 06:08] LABS: Glucose,Whole Blood 95 mg/dL (75-99)
[2018-05-18 07:08] LABS: HCT 34.7 % (34.0-46.0); HGB 11.3 gm/dL (11.4-16.0); MCH 30.2 pg (25.0-35.0); MCHC 32.6 g/dL (31.0-37.0); MCV 92.6 fL (80.0-100.0); Mean Platelet Volume 6.6; Platelet Count 385 k/uL (150-450); RBC 3.75 m/uL (3.80-5.40); RDW 15.6 % (11.5-15.5); WBC 15.6 k/uL (3.8-10.6)
[2018-05-18 07:15] LABS: Blood Urea Nitrogen 25 mg/dL (7-17); Calcium 9.3 mg/dL (8.4-10.2); Chloride 92 mmol/L (98-107); Glucose 82 mg/dL (74-99); Magnesium 2.1 mg/dL (1.6-2.3); Potassium 3.6 mmol/L (3.5-5.1); Sodium 139 mmol/L (137-145)
[2018-05-18 07:21] LABS: Anion Gap 4 mmol/L
[2018-05-18] MEDS: BUDESONIDE 1 MG/2 ML NEBU INHALATION SCH ×2 (07:22→19:18)
[2018-05-18] MEDS: FORMOTEROL FUMARATE 20 MCG/2 ML NEBU INHALATION SCH ×2 (07:22→19:35)
[2018-05-18 07:25] LABS: Carbon Dioxide 43 mmol/L (22-30)
[2018-05-18] MEDS: INSULIN ASPART (NovoLOG) 100 UNIT/ML VIAL SQ SCH ×4 (09:14→23:09)
[2018-05-18] MEDS: ALPRAZolam 1 MG TAB PO PRN ×2 (09:14→16:14)
[2018-05-18] MEDS: HEPARIN SODIUM,PORCINE 5,000 UNIT/ML 1 ML VIAL SQ SCH ×2 (09:14→20:20)
[2018-05-18] MEDS: DILTIAZEM ORAL 30 MG TAB PO SCH ×4 (09:15→20:19)
[2018-05-18] MEDS: predniSONE 20 MG TAB PO SCH (09:15)
[2018-05-18] MEDS: DOXYCYCLINE 100 MG CAP PO SCH ×2 (09:18→23:09)
[2018-05-18 10:43] VITALS: BMI 23.8
--- NOTE | 2018-05-18 11:18 | XR ---
EXAMINATION TYPE: XR chest 1V portable DATE OF EXAM: 05/18/2018 COMPARISON: Chest x-ray 05/17/2018 HISTORY: Shortness of breath TECHNIQUE: Single frontal view of the chest is obtained. FINDINGS: Tracheostomy tube is overlying appropriate position. Prominence of the pulmonary artery cou ld be indicative of underlying pulmonary artery hypertension. Minimal patchy basilar density persists . There is no focal air space opacity, pleural effusion, or pneumothorax seen. The cardiac silhouett e size is within normal limits. The osseous structures are intact. IMPRESSION: Findings are similar to prior exam. Suspect subsegmental basilar atelectasis. Correlate for COPD, pulmonary artery hypertension.
[2018-05-18] MEDS: HYDROmorphone 0.5 MG/0.5 ML SYRINGE IVP PRN ×2 (11:22→20:20)
[2018-05-18 11:46] LABS: Glucose,Whole Blood 154 mg/dL (75-99)
--- NOTE | 2018-05-18 12:22 | P.PN ---
Subjective 58-year-old female with a history of tracheostomy is admitted for COPD exacerbation. She was put on a mechanical ventilator back again. She was also put on breathing treatments, antibiotics, steroids. Patient shows progress as improved. She is back on trach collar Today the patient says that she's doing good. Her shortness of breath is better she's not coughing anymore She was eating when I went in to examine her. She wants to go home and she promises that she would work hard in the physical therapy 05/17 Had a long discussion with the patient today. Says that she really wants to go home and wants to work with physical therapy while here to see she can go home She does not complain of any shortness of breath or cough No chest pain or racing heart 2/ Had a rough last night.Got the cord wrapped up around the neck No chest pain or racing heart Objective - Vital Signs Vital signs: Vital Signs Temp 98.5 F 05/18/18 08:00 Pulse 125 H 05/18/18 12:00 Resp 22 05/18/18 12:00 BP 129/79 05/18/18 12:00 Pulse Ox 96 05/18/18 12:00 Intake & Output 05/17/18 05/18/18 05/18/18 18:59 06:59 18:59 Intake Total 0 500 960 Output Total 2750 300 Balance -2750 500 660 Weight 51.8 kg 51.8 kg Intake: IV 0 500 Magnesium Sulfate-D5w Pmx 400 1 gm In Dextrose/Water 1 100ml.bag @ 100 mls/hr IVPB Q1H [facility] Rx#: [id number] Sodium Chloride 0.9% 1, 0 100 000 ml @ 10 mls/hr IV . Q24H WIN[facility]RED Rx#:[id number] Oral 0 960 Output: Urine 2750 300 Other: Voiding Method Bedpan Bedpan # Voids 0 1 1 # Bowel Movements 1 0 - Exam On exam, alert and oriented x3. HEENT: Conjunctivae normal. eyes normal. NECK: No JVD. No thyroid enlargement. No LNs CARDIOVASCULAR: S1, S2 muffled. No murmur RESPIRATION: Breath sounds diminished in the bases. No rhonchi or crackles. No bronchial breathing. Has trach collar ABDOMEN: Soft, nontender . No guarding. no masses palpable. No ascites, No hepatosplenomegaly.Bowel sounds heard. LEGS: No edema. no swelling NERVOUS SYSTEM: Cranial N 2-12 grossly normal. Moves all 4 limbs. No focal deficits. No sensory deficit. No signs of cerebellar dysfucntion. Skin: no ulcer no rash - Labs CBC & Chem 7: 05/18/18 05:45 05/18/18 05:45 Labs: Abnormal Lab Results - Last 24 Hours (Table) 05/17/18 05/17/18 05/17/18 Range/Units 12:28 16:47 20:13 WBC (3.8-10.6) k/uL RBC (3.80-5.40) m/uL Hgb (11.4-16.0) gm/dL RDW (11.5-15.5) % Chloride (98-107) mmol/L Carbon Dioxide (22-30) mmol/L BUN (7-17) mg/dL Creatinine (0.52-1.04) mg/dL POC Glucose (mg/dL) 154 H 135 H 170 H (75-99) mg/dL 05/18/18 05/18/18 05/18/18 Range/Units 05:45 05:45 11:44 WBC 15.6 H (3.8-10.6) k/uL RBC 3.75 L (3.80-5.40) m/uL Hgb 11.3 L (11.4-16.0) gm/dL RDW 15.6 H (11.5-15.5) % Chloride 92 L (98-107) mmol/L Carbon Dioxide 43 H* (22-30) mmol/L BUN 25 H (7-17) mg/dL Creatinine 0.38 L (0.52-1.04) mg/dL POC Glucose (mg/dL) 154 H (75-99) mg/dL Assessment and Plan Assessment: - Acute on chronic respiratory failure - COPD exacerbation contributing to above - Sinus tachycardia - History of anxiety - History of osteoporosis - History of fibromyalgia Plan - Patient transferred to regular floor - Encourage her to go to rehab versus custodial. Patient seemed little bit more comfortable with going to rehab but has not made up her mind yet. I tried to explain the benefits and our concerns that she might just come back if she doesn't gain her strength back and go home. Patient showed understanding. - We will continue the current care to the time - We'll continue to follow up Time with Patient: Greater than 30
--- NOTE | 2018-05-18 14:52 | P.PN ---
Subjective Progress Note Date: 05/18/18 Principal diagnosis: Acute on chronic hypercapnic respiratory failure secondary to acute exacerbation of COPD complicated by purulent tracheobronchitis This is a 50-year-old white female patient that we saw in consultation yesterday. Patient was admitted to the hospital on O2 2018 for complaints of shortness of breath. Patient does have a chronic tracheostomy in place for multiple episodes of respiratory failure, this was done in January 2018 at [facility]. Patient lives in [place], and she was taken to the [facility] by EMS on O2 2018. She denied any recent fever , chills or cough. Chest x-ray at the [facility] showed the possibility of pneumonia. Chest x-ray was completed at this facility on 2018 and showed hyperinflated lungs with flattening of diaphragms suggesting COPD questionable subtle airspace opacities within the lower lungs. White blood cell count was 6.3, hemoglobin is 12.7, electrolytes were unremarkable, with the exception of CO2 which was elevated 33 suggesting chronic hypercapnic respiratory failure, B1 was a creatinine 0.35, urinalysis was negative for infection, influenza screen was negative. Patient was on trach collar, however last night patient started experiencing worsening shortness of breath, currently her inner cannula came out of the tracheostomy, and patient was severely hypoxemic, with O2 sat of around 48%. She was brought to the intensive care unit, in view of severe respiratory distress, and abnormal blood gases laced on the ventilator support. Initial blood gas this morning showed pO2 of 288, pCO2 of 100, and pH of 7.14, this was done and FiO2 100%. Patient was placed on mom assist-control mode of ventilation with a rate of 30, tidal vital 325, FiO2 50% and PEEP of 5. This morning were seeing the patient in the intensive care unit, she remains on assist control mode of ventilation, she is calm and comfortable, she is awake, in no acute distress, lung sounds are quite diminished, no significant rhonchi or wheezes. His chest x-ray has been reviewed with Dr. Gil, and showed trace bilateral pleural effusions, hyperinflated lungs. Vital signs are stable, with the exception of mild tachycardia, with a rate between 108-120 BPM, blood pressure is 80-100 systolic , and the diastolic blood pressure between 60-80 BPM. Patient is slightly oliguric, with a urine output between 5-15 mL. IV fluids were increased to 0.9 normal saline at a rate of 75 ML per hour, Diprivan and is currently at 50 mics per kilo per minute. Today's blood work shows some white blood cell count increased to 34.6, electrolytes were within normal limits, B1 of 17 and creatinine was 0.46. Urinalysis was negative for infection. Patient is on IV steroids, empiric antiemetics in the form of Levaquin, and nebulized bronchodilators. On 05/18/2018 patient seen in follow-up on selective care unit. She is awake and alert, slightly anxious about the possibility of going to subacute rehab. But no acute distress, she is on 35% trach collar with a pulse ox of 95%, today' s chest x-ray has been reviewed with Dr. Espinoza, and shows subsegmental basilar atelectasis, COPD and pulmonary artery hypertension. signs remain stable, no fever or chills.current antibiotic coverage is in the form of doxycycline. Objective - Vital Signs Vital signs: Vital Signs Temp 98.5 F 05/18/18 08:00 Pulse 125 H 05/18/18 12:00 Resp 22 05/18/18 12:00 BP 129/79 05/18/18 12:00 Pulse Ox 96 05/18/18 12:00 Intake & Output 05/17/18 05/18/18 05/18/18 18:59 06:59 18:59 Intake Total 0 500 1440 Output Total 2750 300 Balance -2750 500 1140 Weight 51.8 kg 51.8 kg Intake: IV 0 500 Magnesium Sulfate-D5w Pmx 400 1 gm In Dextrose/Water 1 100ml.bag @ 100 mls/hr IVPB Q1H [facility] Rx#: [id number] Sodium Chloride 0.9% 1, 0 100 000 ml @ 10 mls/hr IV . Q24H [facility]RED Rx#:[id number] Oral 0 1440 Output: Urine 2750 300 Other: Voiding Method Bedpan Bedpan # Voids 0 1 1 # Bowel Movements 1 0 - Exam GENERAL EXAM: Alert, pleasant, 50-year-old white female, on 35% trach collar HEAD: Normocephalic/atraumatic. EYES: Normal reaction of pupils, equal size. Conjunctiva pink, sclera white. NOSE: Clear with pink turbinates. THROAT: No erythema or exudates. NECK: No masses, no JVD, no thyroid enlargement, no adenopathy. CHEST: No chest wall deformity. Symmetrical expansion. LUNGS: Equal air entry with diminished breath sounds bilaterally CVS: Regular rate and rhythm, normal S1 and S2, no gallops, no murmurs, no rubs ABDOMEN: Soft, nontender. No hepatosplenomegaly, normal bowel sounds, no guarding or rigidity. EXTREMITIES: No clubbing, no edema, no cyanosis, 2+ pulses and upper and lower extremities. MUSCULOSKELETAL: Muscle strength and tone normal. SPINE: No scoliosis or deformity SKIN: No rashes CENTRAL NERVOUS SYSTEM: Alert and oriented -3. No focal deficits, tone is normal in all 4 extremities. PSYCHIATRIC: Alert and oriented -3. Appropriate affect. Intact judgment and insight. - Labs CBC & Chem 7: 05/18/18 05:45 05/18/18 05:45 Labs: Abnormal Lab Results - Last 24 Hours (Table) 05/17/18 05/17/18 05/18/18 Range/Units 16:47 20:13 05:45 WBC 15.6 H (3.8-10.6) k/uL RBC 3.75 L (3.80-5.40) m/uL Hgb 11.3 L (11.4-16.0) gm/dL RDW 15.6 H (11.5-15.5) % Chloride (98-107) mmol/L Carbon Dioxide (22-30) mmol/L BUN (7-17) mg/dL Creatinine (0.52-1.04) mg/dL POC Glucose (mg/dL) 135 H 170 H (75-99) mg/dL 05/18/18 05/18/18 Range/Units 05:45 11:44 WBC (3.8-10.6) k/uL RBC (3.80-5.40) m/uL Hgb (11.4-16.0) gm/dL RDW (11.5-15.5) % Chloride 92 L (98-107) mmol/L Carbon Dioxide 43 H* (22-30) mmol/L BUN 25 H (7-17) mg/dL Creatinine 0.38 L (0.52-1.04) mg/dL POC Glucose (mg/dL) 154 H (75-99) mg/dL Assessment and Plan Plan: Assessment: #1. Acute on chronic hypercapnic respiratory failure late to acute exacerbation of chronic obstructive pulmonary disease, x-ray did not show any clear evidence of pneumonia. Patient required to be placed on mechanical ventilatory, which she remains today #2. Chronic hypercapnic and hypoxemic respiratory failure requiring placement of tracheostomy with a PEG tube, and PEG tube was removed #3. History of nicotine dependence, in remission #4. History of fibromyalgia #5. Anxiety #6. Osteoporosis Plan: She is awaiting authorization for placement to subacute rehab, possibly to [facility]. From pulmonary perspective she is stable, and she is ready for transfer to subacute rehab once the arrangements are completed. Complete patient course of oral antibiotics, prednisone taper, nebulized bronchodilators. She will need outpatient follow-up with Dr. Gil in the office I performed a history & physical examination of the patient and discussed their management with my nurse practitioner, Juliette Garcia. I reviewed the nurse practitioner's note and agree with the documented findings and plan of care. Lung sounds are positive for diminished breath sounds. The findings and the impression was discussed with the patient. I attest to the documentation by the nurse practitioner. Time with Patient: Less than 30
[2018-05-18 16:44] LABS: Glucose,Whole Blood 149 mg/dL (75-99)
[2018-05-18] MEDS: PRAVASTATIN SODIUM 20 MG TAB PO SCH (20:19)
[2018-05-18] MEDS: PANTOPRAZOLE 40 MG TABLET PO SCH (20:20)
[2018-05-18 21:22] LABS: Glucose,Whole Blood 136 mg/dL (75-99)
[2018-05-19] MEDS: IPRATROPIUM-ALBUTEROL 3 ML NEB INHALATION SCH ×4 (03:19→15:32)
[2018-05-19] MEDS: HYDROmorphone 0.5 MG/0.5 ML SYRINGE IVP PRN ×2 (05:00→12:20)
[2018-05-19 06:36] LABS: HCT 34.4 % (34.0-46.0); HGB 10.8 gm/dL (11.4-16.0); MCH 28.9 pg (25.0-35.0); MCHC 31.4 g/dL (31.0-37.0); Mean Platelet Volume 6.7; Platelet Count 342 k/uL (150-450); RBC 3.74 m/uL (3.80-5.40); RDW 15.8 % (11.5-15.5); WBC 13.3 k/uL (3.8-10.6)
[2018-05-19] MEDS: INSULIN ASPART (NovoLOG) 100 UNIT/ML VIAL SQ SCH ×2 (06:39→11:52)
[2018-05-19 06:49] LABS: Blood Urea Nitrogen 35 mg/dL (7-17); Calcium 9.6 mg/dL (8.4-10.2); Chloride 94 mmol/L (98-107); Glucose 92 mg/dL (74-99); Magnesium 1.5 mg/dL (1.6-2.3); Phosphorus 3.9 mg/dL (2.5-4.5); Potassium 3.8 mmol/L (3.5-5.1); Sodium 139 mmol/L (137-145)
[2018-05-19 06:53] LABS: Glucose,Whole Blood 97 mg/dL (75-99)
[2018-05-19 06:55] LABS: Anion Gap 3 mmol/L
[2018-05-19 06:58] LABS: Carbon Dioxide 42 mmol/L (22-30)
[2018-05-19] MEDS: BUDESONIDE 1 MG/2 ML NEBU INHALATION SCH (07:49)
[2018-05-19] MEDS: FORMOTEROL FUMARATE 20 MCG/2 ML NEBU INHALATION SCH (07:49)
[2018-05-19] MEDS: DILTIAZEM ORAL 30 MG TAB PO SCH ×2 (09:07→12:20)
[2018-05-19] MEDS: DOXYCYCLINE 100 MG CAP PO SCH (09:07)
[2018-05-19] MEDS: predniSONE 20 MG TAB PO SCH (09:07)
[2018-05-19] MEDS: HEPARIN SODIUM,PORCINE 5,000 UNIT/ML 1 ML VIAL SQ SCH (09:07)
[2018-05-19] MEDS: ALPRAZolam 1 MG TAB PO PRN (09:07)
[2018-05-19] MEDS: HYDROcodone/APAP 5-325MG 1 EACH TAB PO PRN (09:07)
--- NOTE | 2018-05-19 09:35 | XR ---
EXAMINATION TYPE: XR chest 1V portable DATE OF EXAM: 05/19/2018 COMPARISON: Prior chest x-ray 05/18/2018 HISTORY: Shortness of breath TECHNIQUE: Single frontal view of the chest is obtained. FINDINGS: Tracheostomy tube is overlying the tracheal air column. There are overlying cardiac leads. Minimal patchy basilar density persists. No pneumothorax or evident effusion. Heart size is stable. Pulmonary artery appears prominently. Aorta is dense. IMPRESSION: Suspect minimal basilar atelectasis, no interval change. Additional findings above.
--- NOTE | 2018-05-19 11:01 | P.DS ---
Providers Date of admission: 05/03/18 17:55 Expected date of discharge: 05/19/18 Attending physician: Izzy Otto Consults: 05/03/18 17:55 Consult Physician Routine Consulting Provider: Meg Gil Consult Reason/Comments: COPD Do you want consulting provider notified?: Yes Primary care physician: Physician Nonstaff Hospital Course: Discharge diagnosis - Acute on chronic respiratory failure - COPD exacerbation - History of SVT - history of osteoporosis - Anxiety Hospital course Very pleasant 58-year-old female with a past medical history significant for COPD had a pretty long and extended stay in the hospital which she had a history of prior tracheostomy. She was initially admitted to [facility] but was transferred to our hospital for increasing shortness of breath. She was monitored in the ICU she was started on antibiotics, breathing treatments and steroids. She had a slow recovery. She was restarted on her home medications including Cardizem for SVT. She was on Levaquin originally but was changed to doxycycline. She will complete the 10 day course of doxycycline tomorrow morning. on the day of discharge on 05/19/2018 On exam, alert and oriented x3. HEENT: Conjunctivae normal. eyes normal. NECK: No JVD. No thyroid enlargement. No LNs CARDIOVASCULAR: S1, S2 muffled. No murmur RESPIRATION: Breath sounds diminished in the bases. No rhonchi or crackles. No bronchial breathing. She is having tracheostomy ABDOMEN: Soft, nontender . No guarding. no masses palpable. No ascites, No hepatosplenomegaly.Bowel sounds heard. LEGS: No edema. no swelling NERVOUS SYSTEM: Cranial N 2-12 grossly normal. Moves all 4 limbs. No focal deficits. No sensory deficit. No signs of cerebellar dysfucntion. Skin: no ulcer no rash Plan - Patient will be discharged to rehab facility - Continue the breathing treatments - Presently tapering dose of steroids - Finish the course of antibiotics - Continue rest of the medications - Follow-up with the providers as stated in the discharge summary Patient Condition at Discharge: Fair Plan - Discharge Summary Discharge Rx Participant: No New Discharge Prescriptions: New ALPRAZolam [Xanax] 1 mg PO Q6H PRN 30 Days #60 tab PRN Reason: Anxiety Doxycycline [Vibramycin] 100 mg PO BID 1 Days #2 cap Formoterol Fumarate [Perforomist] 20 mcg INHALATION RT-BID #60 nebu Ipratropium-Albuterol Nebulize [Duoneb 0.5 mg-3 mg/3 ml Soln] 3 ml INHALATION RT-Q4H #60 ampul.neb Pantoprazole [Protonix] 40 mg PO DAILY@2100 #30 tablet. predniSONE 10 mg PO DAILY #40 tab traMADol HCl [Ultram] 50 mg PO Q6H PRN #60 tab PRN Reason: Moderate Pain Continue Tiotropium [place] [Spiriva] 1 cap INHALATION DAILY Albuterol Sulfate [Proair Hfa] 2 puff INHALATION Q4H PRN PRN Reason: Shortness Of Breath Pravastatin Sodium [Pravachol] 20 mg PO HS Fluticasone/Vilanterol [Breo Ellipta 200-25 Mcg INH] 1 puff INHALATION RT- DAILY Diltiazem HCl [Cartia Xt] 120 mg PO DAILY Discontinued Albuterol Nebulized [Ventolin Nebulized] 2.5 mg INHALATION Q6H Discharge Medication List Albuterol Sulfate [Proair Hfa] 2 puff INHALATION Q4H PRN 05/03/18 [History] Diltiazem HCl [Cartia Xt] 120 mg PO DAILY 05/03/18 [History] Fluticasone/Vilanterol [Breo Ellipta 200-25 Mcg INH] 1 puff INHALATION RT-DAILY 05/03/18 [History] Pravastatin Sodium [Pravachol] 20 mg PO HS 05/03/18 [History] Tiotropium [place] [Spiriva] 1 cap INHALATION DAILY 05/03/18 [History] ALPRAZolam [Xanax] 1 mg PO Q6H PRN 30 Days #60 tab 05/19/18 [Rx] Doxycycline [Vibramycin] 100 mg PO BID 1 Days #2 cap 05/19/18 [Rx] Formoterol Fumarate [Perforomist] 20 mcg INHALATION RT-BID #60 nebu 05/19/18 [Rx ] Ipratropium-Albuterol Nebulize [Duoneb 0.5 mg-3 mg/3 ml Soln] 3 ml INHALATION RT -Q4H #60 ampul.neb 05/19/18 [Rx] Pantoprazole [Protonix] 40 mg PO DAILY@2100 #30 tablet. 05/19/18 [Rx] predniSONE 10 mg PO DAILY #40 tab 05/19/18 [Rx] traMADol HCl [Ultram] 50 mg PO Q6H PRN #60 tab 05/19/18 [Rx] Follow up Appointment(s)/Referral(s): Sunny Martinez [NON-STAFF] - Nonstaff,Physician [Primary Care Provider] - 1-2 days Meg Gil MD [STAFF PHYSICIAN] - 1 Week Activity/Diet/Wound Care/Special Instructions: Tracheostomy supplies will be provided by [employer]. They can be reached at [phone]. If you have any increased chest pain, increased shortness of breath, increased cough, fever or chills, lightheadedness or dizziness, any headache, loss of vision or blurry vision, any tingling numbness of any 70s, and also induration, heat, 911 and come to the ER Discharge Disposition: TRANSFER TO SNF/ECF
[2018-05-19 11:38] LABS: Glucose,Whole Blood 130 mg/dL (75-99)
[2018-05-19 13:53] VITALS: BP 139/73; PULSE 128; RESP 20; TEMP 98.9
--- NOTE | 2018-05-19 15:44 | P.PN ---
Subjective Progress Note Date: 05/19/18 Principal diagnosis: Acute on chronic hypercapnic respiratory failure secondary to acute exacerbation of COPD complicated by purulent tracheobronchitis This is a 50-year-old white female patient that we saw in consultation yesterday. Patient was admitted to the hospital on O2 2018 for complaints of shortness of breath. Patient does have a chronic tracheostomy in place for multiple episodes of respiratory failure, this was done in January 2018 at [facility]. Patient lives in [place], and she was taken to the [facility] by EMS on O2 2018. She denied any recent fever, chills or cough. Chest x-ray at the [facility] showed the possibility of pneumonia. Chest x-ray was completed at this facility on 05/03/2018 and showed hyperinflated lungs with flattening of diaphragms suggesting COPD questionable subtle airspace opacities within the lower lungs. White blood cell count was 6.3, hemoglobin is 12.7, electrolytes were unremarkable, with the exception of CO2 which was elevated 33 suggesting chronic hypercapnic respiratory failure, B1 was a creatinine 0.35, urinalysis was negative for infection, influenza screen was negative. Patient was on trach collar, however last night patient started experiencing worsening shortness of breath, currently her inner cannula came out of the tracheostomy, and patient was severely hypoxemic, with O2 sat of around 48%. She was brought to the intensive care unit, in view of severe respiratory distress, and abnormal blood gases laced on the ventilator support. Initial blood gas this morning showed pO2 of 288, pCO2 of 100, and pH of 7.14, this was done and FiO2 100%. Patient was placed on mom assist-control mode of ventilation with a rate of 30, tidal vital 325, FiO2 50% and PEEP of 5. This morning were seeing the patient in the intensive care unit, she remains on assist control mode of ventilation, she is calm and comfortable, she is awake, in no acute distress, lung sounds are quite diminished, no significant rhonchi or wheezes. His chest x-ray has been reviewed with Dr. Gil, and showed trace bilateral pleural effusions, hyperinflated lungs. Vital signs are stable, with the exception of mild tachycardia, with a rate between 108-120 BPM, blood pressure is 80-100 systolic, and the diastolic blood pressure between 60-80 BPM. Patient is slightly oliguric, with a urine output between 5-15 mL. IV fluids were increased to 0.9 normal saline at a rate of 75 ML per hour, Diprivan and is currently at 50 mics per kilo per minute. Today's blood work shows some white blood cell count increased to 34.6, electrolytes were within normal limits, B1 of 17 and creatinine was 0.46. Urinalysis was negative for infection. Patient is on IV steroids, empiric antiemetics in the form of Levaquin, and nebulized bronchodilators. On 05/18/2018 patient seen in follow-up on selective care unit. She is awake and alert, slightly anxious about the possibility of going to subacute rehab. But no acute distress, she is on 35% trach collar with a pulse ox of 95%, today's chest x-ray has been reviewed with Dr. Espinoza, and shows subsegmental basilar atelectasis, COPD and pulmonary artery hypertension. signs remain stable, no fever or chills.current antibiotic coverage is in the form of doxycycline. On 05/19/2018 patient seen in follow-up on selective care unit, she is awake and alert, in no acute distress, afebrile, she is a 35% trach collar, with pulse ox of 97%, continues on oral doxycycline, sputum culture showed diphtheroid species, final cultures pending, she is doing well, no acute complaints, and a slight anxiety about transfer to subacute rehab, tolerating oral intake, vital signs are stable. Patient has been accepted at [facility], nurse authorization went through, and we anticipate discharge to subacute rehab today. Objective - Vital Signs Vital signs: Vital Signs Temp 98.9 F 05/19/18 12:00 Pulse 128 H 05/19/18 12:00 Resp 20 05/19/18 12:00 BP 139/73 05/19/18 12:00 Pulse Ox 97 05/19/18 12:00 Intake & Output 05/18/18 05/19/18 05/19/18 18:59 06:59 18:59 Intake Total 1920 960 Output Total 300 Balance 1620 960 Weight 51.8 kg 53 kg Intake: Oral 1920 960 Output: Urine 300 Other: Voiding Method Bedpan # Voids 1 1 1 # Bowel Movements 0 1 - Exam GENERAL EXAM: Alert, pleasant, 50-year-old white female, on 35% trach collar HEAD: Normocephalic/atraumatic. EYES: Normal reaction of pupils, equal size. Conjunctiva pink, sclera white. NOSE: Clear with pink turbinates. THROAT: No erythema or exudates. NECK: No masses, no JVD, no thyroid enlargement, no adenopathy. CHEST: No chest wall deformity. Symmetrical expansion. LUNGS: Equal air entry with diminished breath sounds bilaterally CVS: Regular rate and rhythm, normal S1 and S2, no gallops, no murmurs, no rubs ABDOMEN: Soft, nontender. No hepatosplenomegaly, normal bowel sounds, no guarding or rigidity. EXTREMITIES: No clubbing, no edema, no cyanosis, 2+ pulses and upper and lower extremities. MUSCULOSKELETAL: Muscle strength and tone normal. SPINE: No scoliosis or deformity SKIN: No rashes CENTRAL NERVOUS SYSTEM: Alert and oriented -3. No focal deficits, tone is normal in all 4 extremities. PSYCHIATRIC: Alert and oriented -3. Appropriate affect. Intact judgment and insight. - Labs CBC & Chem 7: 05/19/18 05:46 05/19/18 05:46 Labs: Abnormal Lab Results - Last 24 Hours (Table) 05/18/18 05/18/18 05/19/18 Range/Units 16:43 21:06 05:46 WBC 13.3 H (3.8-10.6) k/uL RBC 3.74 L (3.80-5.40) m/uL Hgb 10.8 L (11.4-16.0) gm/dL RDW 15.8 H (11.5-15.5) % Chloride (98-107) mmol/L Carbon Dioxide (22-30) mmol/L BUN (7-17) mg/dL Creatinine (0.52-1.04) mg/dL POC Glucose (mg/dL) 149 H 136 H (75-99) mg/dL Magnesium (1.6-2.3) mg/dL 05/19/18 05/19/18 Range/Units 05:46 11:36 WBC (3.8-10.6) k/uL RBC (3.80-5.40) m/uL Hgb (11.4-16.0) gm/dL RDW (11.5-15.5) % Chloride 94 L (98-107) mmol/L Carbon Dioxide 42 H* (22-30) mmol/L BUN 35 H (7-17) mg/dL Creatinine 0.40 L (0.52-1.04) mg/dL POC Glucose (mg/dL) 130 H (75-99) mg/dL Magnesium 1.5 L (1.6-2.3) mg/dL Assessment and Plan Plan: Assessment: #1. Acute on chronic hypercapnic respiratory failure late to acute exacerbation of chronic obstructive pulmonary disease, x-ray did not show any clear evidence of pneumonia. Patient required to be placed on mechanical ventilatory, which she remains today #2. Chronic hypercapnic and hypoxemic respiratory failure requiring placement of tracheostomy with a PEG tube, and PEG tube was removed #3. History of nicotine dependence, in remission #4. History of fibromyalgia #5. Anxiety #6. Osteoporosis Plan: Patient is doing well, remains stable, no fever or chills, today's chest x-ray has been reviewed, shows some basilar atelectasis, no acute pulmonary process, patient has been accepted at the [facility], from pulmonary perspective patient stable for transfer there today. Follow up with Dr. Gil in the office in 10-14 days I performed a history & physical examination of the patient and discussed their management with my nurse practitioner, Juliette Garcia. I reviewed the nurse practitioner's note and agree with the documented findings and plan of care. Lung sounds are positive for diminished breath sounds. The findings and the impression was discussed with the patient. I attest to the documentation by the nurse practitioner. Time with Patient: Less than 30
== END 2018-05-19 15:22 | DRG 207 ==
LOC: EC 16:04 → 3SCARD 17:55 → 2SICU 05-05 06:16 → 3SCARD 05-17 21:14
PROVIDERS: ADMIT Hospitalist; ATTEND Hospitalist
PROC: 5A1955Z Respiratory Ventilation, Greater than 96 Consecutive Hours (ICD-10-PCS; principal; 2018-05-03)
DX: J44.1 Chronic obstructive pulmonary disease with (acute) exacerbation (principal); J96.21 Acute and chronic respiratory failure with hypoxia; J96.22 Acute and chronic respiratory failure with hypercapnia; J96.02 Acute respiratory failure with hypercapnia; Z99.11 Dependence on respirator [ventilator] status; E87.3 Alkalosis; I47.1 Supraventricular tachycardia; J98.11 Atelectasis; Z93.0 Tracheostomy status; E78.5 Hyperlipidemia, unspecified; E83.39 Other disorders of phosphorus metabolism; E83.42 Hypomagnesemia; E87.6 Hypokalemia; F41.1 Generalized anxiety disorder; K59.00 Constipation, unspecified; M79.7 Fibromyalgia; M81.0 Age-related osteoporosis without current pathological fracture; Z86.14 Personal history of Methicillin resistant Staphylococcus aureus infection; Z87.891 Personal history of nicotine dependence; Z90.49 Acquired absence of other specified parts of digestive tract; Z88.6 Allergy status to analgesic agent; Z88.5 Allergy status to narcotic agent; Z88.0 Allergy status to penicillin; I27.20 Pulmonary hypertension, unspecified
CPT/HCPCS: 36600; 71045; 80048; 80051; 81001; 81003; 82805; 83036; 83735; 84100; 84132; 85025; 85027; 87040; 87070; 87086; 87205; 87502; 93005; 93306; 94002; 94003; 94640; 94760; 96374; 96375; 99285